=== PATIENT | female | born 1930 | race Caucasian/White ===

== ENCOUNTER 2016-08-29 16:30 | Inpatient (IN) | payer OTHER ==
--- NOTE | 2016-08-29 17:03 | PDOC ---
History of Present Illness <Ranjan Helms - Last Filed: 08/29/16 17:17> - General History Source: Patient Exam Limitations: No Limitations - History of Present Illness Initial Comments: 08/29/16 17:25 Patient is a 84-year-old female with history of COPD, CAD (pacemaker in place), esophageal dysmotility disorder with tertiary contractions, retention and reversed peristalsis who presents to the ED sent in by Dr. Castillo for admission to place peg tube by Dr. Chong. Patient reports intermittent nausea and vomiting that is an ongoing problem for her. Patient states that she has difficulty swallowing or keeping food down due to her esophageal disorder. PMH: intrinsic bronchial asthma, COPD, ischemic heart disease, HCVD c/CHF, rheumatoid arthritis, severe degenerative joint disease of multiple sites, ischemic colitis, hyperlipidemia, glaucoma, osteoporosis, esophageal dysmotility disorder with tertiary contractions, retention and reversed peristalsis, intermittent nausea and vomiting, history of ischemic colitis, s/p Antonio fundoplasty, s/p H Pylori infection and gastritis, s/p cholecystectomy, appendectomy, intermittent mid and right lumbar abdominal pain, s/p ventral hernia repair, Cholelithiasis, Hypothyroidism, Osteopenia, Cholecystitis, AFIB, CAD, CHF, HTN, Hyperlipidemia, [place], Mitral Insufficiency,Atrial septal defect. PSH: Appendectomy, Cataract Removal, Cholecystectomy, Hernia Repair, Joint Replacement, Stent, Tonsillectomy <Jasmin Murphy - Last Filed: 08/29/16 18:08> - General Chief Complaint: Dysphagia Stated Complaint: DYSPHAGIA, VOMITING Time Seen by Provider: 08/29/16 17:02 Past History - Past Medical History Anemia: Yes Asthma: Yes Cancer: Yes (BILATERAL BREAST) Cardiac Disorders: Yes (ashd, cabg,) CVA: No COPD: Yes CHF: Yes Dementia: No Diabetes: No GI Disorders: Yes (gi bleed) Disorders: No HTN: Yes Hypercholesterolemia: Yes Liver Disease: No Seizures: No Thyroid Disease: No - Surgical History Abdominal Surgery: No Appendectomy: No Cardiac Surgery: Yes (stents 2) Cholecystectomy: No Lung Surgery: No Neurologic Surgery: No Orthopedic Surgery: Yes (BILAT KNEE REPLACEMENT) - Immunization History Immunization Up to Date: Yes - Psycho/Social/Smoking Cessation Hx Anxiety: No Suicidal Ideation: No Smoking Status: No Smoking History: Never smoked Years of Tobacco Use: 0 Have you smoked in the past 12 months: No Number of Cigarettes Smoked Daily: 0 Hx Alcohol Use: No Drug/Substance Use Hx: No Substance Use Type: None Hx Substance Use Treatment: No <Ranjan Helms - Last Filed: 08/29/16 17:17> <Jasmin Murphy - Last Filed: 08/29/16 18:08> - Past Medical History Allergies/Adverse Reactions: Allergies Allergy/AdvReac Type Severity Reaction Status Date / Time alcohol Allergy Severe Difficulty Verified 08/29/16 16:48 Breathing ciprofloxacin [From Cipro] Allergy Severe Difficulty Verified 08/29/16 16:48 Breathing ciprofloxacin HCl Allergy Severe Difficulty Verified 08/29/16 16:48 [From Cipro] Breathing erythromycin base Allergy Severe Difficulty Verified 08/29/16 16:48 [Erythromycin Base] Breathing metronidazole [From Flagyl] Allergy Severe Difficulty Verified 08/29/16 16:48 Breathing Metronidazole HCl Allergy Severe Difficulty Verified 08/29/16 16:48 [From Flagyl] Breathing Penicillins Allergy Severe Difficulty Verified 08/29/16 16:48 Breathing tetracycline [Tetracycline] Allergy Severe Difficulty Verified 08/29/16 16:48 Breathing adhesive Allergy Verified 08/29/16 16:48 adhesive tape Allergy Verified 08/29/16 16:48 clindamycin Allergy Verified 08/29/16 16:48 codeine [Codeine] Allergy Verified 08/29/16 16:48 isosorbide mononitrate Allergy Verified 08/29/16 16:48 [From Ismo] meperidine HCl [From Demerol] Allergy Verified 08/29/16 16:48 nisoldipine Allergy Verified 08/29/16 16:48 povidone-iodine Allergy Verified 08/29/16 16:48 [From Betadine] prochlorperazine edisylate Allergy Verified 08/29/16 16:48 [From Compazine] prochlorperazine maleate Allergy Verified 08/29/16 16:48 [From Compazine] soap [From Betadine] Allergy Verified 08/29/16 16:48 EITHER Allergy Unknown Uncoded 08/29/16 16:48 Home Medications: Ambulatory Orders Albuterol Sulfate Inhaler - [Ventolin Hfa Inhaler -] 2 puff IH ASDIR 08/29/16 Apixaban [Eliquis] 2.5 mg PO BID 08/29/16 Ascorbate Calcium [Vitamin C] 500 mg PO DAILY 08/29/16 Aspirin [ASA -] 81 mg PO DAILY 08/29/16 Cholecalciferol (Vitamin D3) [Vitamin D3] 5,000 unit PO DAILY 08/29/16 Docusate Sodium [Colace -] 200 mg PO BID 08/29/16 Fluticasone Prop 0.05% Nasal [Flonase -] 1 spray NS DAILY 08/29/16 Fluticasone Propionate [Flovent Diskus] 100 mcg IH DAILY 08/29/16 Folic Acid 1 mg PO DAILY 08/29/16 Furosemide [Lasix] 20 mg PO Q48H 08/29/16 Guaifenesin [Mucinex] 600 mg PO BID 08/29/16 Ipratropium [place] 15 ml NS BID 08/29/16 Metoprolol Succinate [Toprol Xl -] 25 mg PO DAILY 08/29/16 Montelukast Na [Singulair -] 10 mg PO HS 08/29/16 Nitroglycerin Sublingual [Nitrostat -] 0.4 mg SL ASDIR 08/29/16 Ondansetron HCl [Zofran] 4 mg PO DAILY 08/29/16 Oxycodone HCl/Acetaminophen [Percocet 5-325 mg Tablet] 1 tab PO Q4H PRN Pantoprazole Sodium [Protonix] 40 mg PO DAILY 08/29/16 Propylene Glycol/Peg 400/Pf [Systane Ultra 0.4-0.3% Eye Drp] 1 each OP QID 08/29 Ranolazine [Ranexa] 500 mg PO BID 08/29/16 Rosuvastatin Calcium [Crestor] 40 mg PO DAILY 08/29/16 Review of Systems - Review of Systems Able to Perform ROS?: Yes Comments:: 08/29/16 17:29 GENERAL/CONSTITUTIONAL: No fever or chills. No weakness. HEAD, EYES, EARS, NOSE AND THROAT: No change in vision. No ear pain or discharge. No sore throat. CARDIOVASCULAR: No chest pain or shortness of breath. RESPIRATORY: No cough, wheezing, or hemoptysis. GASTROINTESTINAL: (+)nausea, vomiting. No diarrhea or constipation. GENITOURINARY: No dysuria, frequency, or change in urination. MUSCULOSKELETAL: No joint or muscle swelling or pain. No neck or back pain. SKIN: No rash NEUROLOGIC: No headache, vertigo, loss of consciousness, or change in strength/ sensation. ENDOCRINE: No increased thirst. No abnormal weight change. HEMATOLOGIC/LYMPHATIC: No anemia, easy bleeding, or history of blood clots. ALLERGIC/IMMUNOLOGIC: No hives or skin allergy. <Jasmin Murphy - Last Filed: 08/29/16 18:08> *Physical Exam - Vital Signs Last Vital Signs Temp Pulse Resp BP Pulse Ox 100.1 F H 84 18 145/58 98 08/29/16 16:30 08/29/16 16:30 08/29/16 16:30 08/29/16 16:30 08/29/16 16:30 <Ranjan Helms - Last Filed: 08/29/16 17:17> - Vital Signs Last Vital Signs Temp Pulse Resp BP Pulse Ox 100.1 F H 84 18 145/58 98 08/29/16 16:30 08/29/16 16:30 08/29/16 16:30 08/29/16 16:30 08/29/16 16:30 - Physical Exam Comments: 08/29/16 17:26 GENERAL: Awake, alert, and fully oriented, in no acute distress HEAD: No signs of trauma EYES: PERRLA, EOMI, sclera anicteric, conjunctiva clear ENT: (+)Dry mucous membranes. Auricles normal inspection, hearing grossly normal , nares patent, oropharynx clear without exudates. NECK: Normal ROM, supple, no lymphadenopathy, JVD, or masses LUNGS: Breath sounds equal, clear to auscultation bilaterally. No wheezes, and no crackles HEART: Regular rate and rhythm, normal S1 and S2, no murmurs, rubs or gallops ABDOMEN: Soft, nontender, normoactive bowel sounds. No guarding, no rebound. No masses EXTREMITIES: (+)well healed surgical scars at the knees bilaterally. Normal range of motion, no edema. No clubbing or cyanosis. No cords, erythema, or tenderness NEUROLOGICAL: Cranial nerves II through XII grossly intact. Normal speech. SKIN: (+)Juandice. Warm, Dry, normal turgor, no rashes or lesions noted. <Jasmin Murphy - Last Filed: 08/29/16 18:08> Heart Score/ECG Review #1 08/29/16 18:08 Ventricular paced rhythm at 85 bpm <Jasmin Murphy - Last Filed: 08/29/16 18:08> ED Treatment Course - LABORATORY CBC & Chemistry Diagram: 08/29/16 17:45 08/29/16 17:45 <Jasmin Murphy - Last Filed: 08/29/16 18:08> Medical Decision Making - Medical Decision Making 08/29/16 17:25 Patient is a 84-year-old female with history of esophageal dysmotility disorder with tertiary contractions, retention and reversed peristalsis s/p multiple surgeries to fix it who presents to the ED sent in by Dr. Castillo for admission to place peg tube by Dr. Chong. Patient reports intermittent nausea and vomiting that is an ongoing problem for her. Patient was seen and evaluated by Dr. Castillo and myself. 08/29/16 17:30 Patient will worked up, labs ordered, when results are obtained patient will be transferred to [facility]. Discussed with Dr. Chester. <Jasmin Murphy - Last Filed: 08/29/16 18:08> *DC/Admit/Observation/Transfer - Discharge Dispostion Admit: Yes - Transfer to Acute Care Facility Accepting Physician:: LESLY - Attestations Physician Attestion: 08/29/16 17:02 I, Dr. Ranjan Helms, attest that this document has been prepared under my direction and personally reviewed by me in its entirety. I further attest, that it accurately reflects all work, treatment, procedures and medical decision -making performed by me. <Ranjan Helms - Last Filed: 08/29/16 17:17> <Jasmin Murphy - Last Filed: 08/29/16 18:08> Diagnosis at time of Disposition: Intractable vomiting with nausea Qualifiers: Vomiting type: unspecified Qualified Code(s): R11.2 - Nausea with vomiting, unspecified Diarrhea Qualifiers: Diarrhea type: due to malabsorption Qualified Code(s): K90.9 - Intestinal malabsorption, unspecified - Discharge Dispostion Disposition: TRANSFER ACUTE CARE/OTHER HOSP Condition at time of disposition: Stable - Referrals Referrals: Calos Castillo MD [Primary Care Provider] -
--- NOTE | 2016-08-29 17:13 | HP ---
Admitting History and Physical - Admission Chief Complaint: Acute exacerbation of generalized muscle weakness, acute fatigue, abnormal loss of weight, acute exacerbation of frequent bouts of regurgitation, feeling very depressed. 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, status post bilateral knee replacement twice, s/p left femur replacement, s/p left tibia repair, cholecystectomy, appendectomy tonsillectomy, atrial septal defect, hyperlipidemia, hypothyroidism, degenerative joint disease of joints of multiple sites, multilevel cervical osteoarthritis with degenerative disc disease with bilateral c7/c6 radiculopathy, proximal muscle weakness, bilateral c7/c6 radiculopathy with partial denervation in muscles innervated by these roots, status post rotator cuff tear and repair with pain - on going, status post abdominal hernia repair, GERD, glaucoma, 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 Patient is in need of PEG tube insertion for feeding, adequate hydration and nutrition. 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: Other (depression) Cardiovascular: Yes: AFIB, CAD, CHF, HTN, Hyperlipdemia, [place], Mitral Insufficiency, Other (Atrial septal defect, intermittent palpitations, status post acute inferior wall myocardial infarction) Pulmonary: Yes: Asthma, COPD, Other (intrinsic bronchial asthma) Gastrointestinal: Yes: GERD, Other (esophageal dysmotility disorder with tertiary contractions, retention and reversed peristalsis, intermittent nausea and vomiting, history of ischemic colitis, s/p Chase fundoplasty, s/p H Pylori infection and gastritis, s/p cholecystectomy, appendectomy, intermittent mid and right lumbar abdominal pain, s/p ventral hernia repair,) Hepatobiliary: Yes: Cholelithiasis, Cholecystitis Heme/Onc: Yes: Anemia, B12 Deficiency Infectious Disease: Yes: MRSA (left knee, acute) Psych: Yes: Depression Musculoskeletal: Yes: Chronic low back pain, Osteoarthritis, Other (s/ TKR x2, 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, left shoulder pain related to osteoarthritis) Rheumatology: Yes: Rheumatoid Arthritis ENT: Yes: Allergic Rhinitis Endocrine: Yes: Hypothyroidism, Osteopenia - Past Surgical History Past Surgical History: Yes: Appendectomy, Cataract Removal, Cholecystectomy, Hernia Repair, Joint Replacement, Permanent Pacemaker, Stent, Tonsillectomy - Smoking History Smoking history: Never smoked Have you smoked in the past 12 months: No Aproximately how many cigarettes per day: 0 - Alcohol/Substance Use Hx Alcohol Use: No History of Substance Use: reports: None - Social History Usual Living Arrangement: Yes: Other ([employer]) ADL: Support Services History of Recent Travel: No Home Medications - Allergies Allergies/Adverse Reactions: Allergies Allergy/AdvReac Type Severity Reaction Status Date / Time alcohol Allergy Severe Difficulty Verified 08/29/16 16:48 Breathing ciprofloxacin [From Cipro] Allergy Severe Difficulty Verified 08/29/16 16:48 Breathing ciprofloxacin HCl Allergy Severe Difficulty Verified 08/29/16 16:48 [From Cipro] Breathing erythromycin base Allergy Severe Difficulty Verified 08/29/16 16:48 [Erythromycin Base] Breathing metronidazole [From Flagyl] Allergy Severe Difficulty Verified 08/29/16 16:48 Breathing Metronidazole HCl Allergy Severe Difficulty Verified 08/29/16 16:48 [From Flagyl] Breathing Penicillins Allergy Severe Difficulty Verified 08/29/16 16:48 Breathing tetracycline [Tetracycline] Allergy Severe Difficulty Verified 08/29/16 16:48 Breathing adhesive Allergy Verified 08/29/16 16:48 adhesive tape Allergy Verified 08/29/16 16:48 clindamycin Allergy Verified 08/29/16 16:48 codeine [Codeine] Allergy Verified 08/29/16 16:48 isosorbide mononitrate Allergy Verified 08/29/16 16:48 [From Ismo] meperidine HCl [From Demerol] Allergy Verified 08/29/16 16:48 nisoldipine Allergy Verified 08/29/16 16:48 povidone-iodine Allergy Verified 08/29/16 16:48 [From Betadine] prochlorperazine edisylate Allergy Verified 08/29/16 16:48 [From Compazine] prochlorperazine maleate Allergy Verified 08/29/16 16:48 [From Compazine] soap [From Betadine] Allergy Verified 08/29/16 16:48 EITHER Allergy Unknown Uncoded 08/29/16 16:48 - Home Medications Home Medications: Ambulatory Orders Albuterol Sulfate Inhaler - [Ventolin Hfa Inhaler -] 2 puff IH ASDIR 08/29/16 Apixaban [Eliquis] 2.5 mg PO BID 08/29/16 Ascorbate Calcium [Vitamin C] 500 mg PO DAILY 08/29/16 Aspirin [ASA -] 81 mg PO DAILY 08/29/16 Cholecalciferol (Vitamin D3) [Vitamin D3] 5,000 unit PO DAILY 08/29/16 Docusate Sodium [Colace -] 200 mg PO BID 08/29/16 Fluticasone Prop 0.05% Nasal [Flonase -] 1 spray NS DAILY 08/29/16 Fluticasone Propionate [Flovent Diskus] 100 mcg IH DAILY 08/29/16 Folic Acid 1 mg PO DAILY 08/29/16 Furosemide [Lasix] 20 mg PO Q48H 08/29/16 Guaifenesin [Mucinex] 600 mg PO BID 08/29/16 Ipratropium [place] 15 ml NS BID 08/29/16 Metoprolol Succinate [Toprol Xl -] 25 mg PO DAILY 08/29/16 Montelukast Na [Singulair -] 10 mg PO HS 08/29/16 Nitroglycerin Sublingual [Nitrostat -] 0.4 mg SL ASDIR 08/29/16 Ondansetron HCl [Zofran] 4 mg PO DAILY 08/29/16 Oxycodone HCl/Acetaminophen [Percocet 5-325 mg Tablet] 1 tab PO Q4H PRN Pantoprazole Sodium [Protonix] 40 mg PO DAILY 08/29/16 Propylene Glycol/Peg 400/Pf [Systane Ultra 0.4-0.3% Eye Drp] 1 each OP QID 08/29 Ranolazine [Ranexa] 500 mg PO BID 08/29/16 Rosuvastatin Calcium [Crestor] 40 mg PO DAILY 08/29/16 Family Disease History - Family Disease History Family Disease History: Heart Disease: Mother (breast, ovarian), Brother, [place]: Father (lung,), Mother Review of Systems - Review of Systems Constitutional: reports: Unintentional Wgt. Loss, Weakness, Other ( severe generalized muscle weakness) Eyes: reports: Other (dry eye syndrome) HENT: reports: Nasal Congestion Neck: reports: No Symptoms Cardiovascular: reports: No Symptoms Respiratory: reports: No Symptoms Gastrointestinal: reports: Diarrhea, Nausea, Vomiting Genitourinary: reports: No Symptoms Breasts: reports: No Symptoms Reported Musculoskeletal: reports: Back Pain, Extremity Pain, Muscle Pain, Muscle Weakness Integumentary: reports: No Symptoms Neurological: reports: Unsteady Gait, Weakness Endocrine: reports: Other (hypothyroidism) Psychiatric: reports: Depression Physical Examination Vital Signs: Vital Signs Temperature 100.1 F H 08/29/16 16:30 Pulse Rate 84 08/29/16 16:30 Respiratory Rate 18 08/29/16 16:30 Blood Pressure 145/58 08/29/16 16:30 O2 Sat by Pulse Oximetry (%) 98 08/29/16 16:30 Constitutional: Yes: Severe Distress, Pallor, Other (depressed) Eyes: Yes: Conjunctiva Clear, Other (dry eye syndrome) HENT: Yes: Atraumatic, Normocephalic Neck: Yes: Supple, Trachea Midline Cardiovascular: Yes: Regular Rate and Rhythm, Other (s/p permanent pacemaker insertion) Respiratory: Yes: Regular, CTA Bilaterally Gastrointestinal: Yes: Normal Bowel Sounds, Soft, Vomiting, Other (frequent regurgitation) ...Rectal Exam: Yes: Deferred Renal/: Yes: WNL Breast(s): Yes: Other (left breast cancer) Musculoskeletal: Yes: Muscle Weakness Extremities: Yes: Other (generalized muscle weakness) Edema: Yes Edema: LLE: 1+, RLE: 1+ Peripheral Pulses WNL: Yes Integumentary: Yes: WNL Neurological: Yes: Alert, Oriented, Unsteady Gait, Weakness ...Motor Strength: LUE (muscle weakness), LLE (muscle weakness), RUE (muscle weakness), RLE (muscle weakness) Psychiatric: Yes: Alert, Oriented Problem List - Problems (1) Diarrhea Assessment/Plan: Secondary to Boost plus, IV fluids. Code(s): R19.7 - DIARRHEA, UNSPECIFIED Qualifiers: Diarrhea type: due to malabsorption Qualified Code(s): K90.9 - Intestinal malabsorption, unspecified; R19.7 - Diarrhea, unspecified (2) Intractable vomiting with nausea Assessment/Plan: Secondary to esophageal dysmotility with tertiary contractions and retrograde flow. Consultation to GI. Code(s): R11.2 - NAUSEA WITH VOMITING, UNSPECIFIED Qualifiers: Vomiting type: unspecified Qualified Code(s): R11.2 - Nausea with vomiting, unspecified (3) Hypovolemia dehydration Assessment/Plan: IV fluids. Code(s): E86.1 - HYPOVOLEMIA (4) Hypokalemia Assessment/Plan: IV KCL Code(s): E87.6 - HYPOKALEMIA Assessment/Plan Reason for admission and continued hospital stay: acute dehydration, acute hypokalemia, acute diarrhea, acute nausea and vomiting, IV fluids, Consultation to GI for PEG tube insertion, discussed clinical condition of the patient with GI from Dr. Coleman's group, patient to be transferred to [facility].
[2016-08-29] MEDS ORDERED: SODIUM CHLORIDE 1,000 ML IV STA (17:22)
[2016-08-29] MEDS ORDERED: ACETAMINOPHEN 1000 MG/100 ML VIAL (NON FORMULARY) IVPB ONE (17:57)
[2016-08-29] MEDS ORDERED: ACETAMINOPHEN INJECTION 100 ML IVPB ONE (18:09)
[2016-08-29 18:15] LABS: BASOPHIL 0.7 % (0-2.0); EOSINOPHIL 0.3 % (0-4.5); MCH 33.9 pg (25.7-33.7); MCHC 34.3 g/dl (32.0-36.0); MEAN CELL VOLUME 98.8 fl (80-96); MEAN PLT VOLUME 8.2 fl (7.5-11.1); NEUTROPHILS 71.3 % (42.8-82.8); PLATELET COUNT 172 K/MM3 (134-434); RDW 14.5 % (11.6-15.6); WHITE BLOOD COUNT 8.2 K/mm3 (4.0-10.8)
[2016-08-29] MEDS ORDERED: OXYCODONE/APAP 5/325MG COMBO TABLET PO ONE (18:21)
[2016-08-29] MEDS ORDERED: OXYCODONE/APAP 5/325MG COMBO TABLET PO PRN (18:21)
[2016-08-29 18:22] LABS: INR 1.09 (0.82-1.09); PROTHROMBIN TIME (PATIENT) 12.2 SEC (10.2-13.0)
[2016-08-29] MEDS ORDERED: ALBUTEROL SO4 6.7 GM HFA INHALER IH PRN (18:23)
[2016-08-29 18:24] LABS: ALBUMIN 2.7 g/dl (3.5-5.0); ALK PHOS 109 U/L (32-92); ANION GAP 13 (8-16); BILIRUBIN,TOTAL 1.5 mg/dl (0.2-1.0); CALCIUM 9.1 mg/dl (8.4-10.2); CO2 24 mmol/L (22-28); CREATININE 1.7 mg/dl (0.6-1.3); GLUCOSE,RANDOM 108 mg/dl (74-106); SGOT/AST 59 U/L (10-42); SGPT/ALT 43 U/L (10-40); TOT PROT 5.3 g/dl (6.4-8.3)
[2016-08-29] MEDS ORDERED: ALBUTEROL SO4 0.083% IH SOL 2.5 MG/3 ML VIAL.NEB. NEB PRN (18:24)
[2016-08-29] MEDS ORDERED: POTASSIUM CHLORIDE TABS 20 MEQ TABLET.ER (FP) PO ONE ×2 (18:31→18:40)
[2016-08-29] MEDS ORDERED: ONDANSETRON 4 MG/2 ML VIAL IVPB ONE (18:31)
[2016-08-29] MEDS ORDERED: POTASSIUM CHLORIDE 20 MEQ PREMIX IVPB 100 ML IVPB ONE (18:31)
[2016-08-29] MEDS ORDERED: NITROGLYCERIN SUBLINGUAL 1/150 0.4 MG TAB SL PRN (18:38)
[2016-08-29] MEDS ORDERED: ONDANSETRON 4 MG/2 ML VIAL ONE (18:40)
[2016-08-29] MEDS ORDERED: ONDANSETRON 4 MG TABLET PO ONE (18:43)
[2016-08-29 18:48] LABS: PH,URINE 5.5 (4.5-8); URINE APPEARANCE Cloudy; URINE BILIRUBIN Negative (NEGATIVE); URINE GLUCOSE (UA) Negative (NEGATIVE); URINE KETONE Negative (NEGATIVE); URINE NITRITE Negative (NEGATIVE); URINE UROBILINOGEN 0.2 E.U/dl (0.2-1.0)
[2016-08-29 18:49] LABS: URINE BLOOD 3+ (NEGATIVE); URINE COLOR YELLOW; URINE LEUK ESTERASE 3+ (NEGATIVE); URINE PROTEIN 1+ (NEGATIVE)
[2016-08-29 18:51] LABS: TROPONIN I (DFP) 0.09 ng/ml (0.03-0.50)
[2016-08-29] MEDS: DEXTROSE 5%-0.45% SALINE 1,000 ML IV SCH (19:15)
[2016-08-29 19:44] LABS: URINE BACTERIA MANY /hpf (NEGATIVE); URINE WBC MANY (3-5)
[2016-08-29 21:39] VITALS: BMI 21.9
[2016-08-29] MEDS ORDERED: ROSUVASTATIN CA 40 MG TABLET PO SCH (22:00)
[2016-08-29] MEDS ORDERED: guaiFENesin 600 MG TABLET.ER (FP) PO SCH (22:00)
[2016-08-29] MEDS ORDERED: ASCORBIC ACID 500 MG TABLET (FP) PO SCH (22:00)
[2016-08-29] MEDS ORDERED: APIXABAN 2.5 MG TABLET PO SCH (22:00)
[2016-08-29] MEDS ORDERED: RANOLAZINE E.R. 500 MG TABLET (FP) PO SCH (22:00)
[2016-08-30] MEDS: DEXTROSE 5%-0.45% SALINE 1,000 ML IV SCH (01:51)
[2016-08-30] MEDS ORDERED: ALBUTEROL SO4 6.7 GM HFA INHALER IH PRN (08:15)
[2016-08-30] MEDS ORDERED: ALBUTEROL SO4 0.083% IH SOL 2.5 MG/3 ML VIAL.NEB. NEB PRN (08:15)
[2016-08-30] MEDS ORDERED: NITROGLYCERIN SUBLINGUAL 1/150 0.4 MG TAB SL PRN (08:34)
[2016-08-30] MEDS ORDERED: oxyCODONE HCL 5 MG TABLET PO PRN (08:43)
[2016-08-30] MEDS ORDERED: ACETAMINOPHEN 325 MG TABLET (FP) PO PRN (08:43)
[2016-08-30] MEDS ORDERED: METOPROLOL SUCCINATE 25 MG TAB.SR.24H (FP) PO SCH (10:00)
[2016-08-30] MEDS ORDERED: CHOLECALCIFEROL (VITAMIN D3) 1,000 UNIT TABLET (FP) PO SCH (10:00)
[2016-08-30] MEDS ORDERED: MONTELUKAST NA 10 MG TABLET PO SCH (10:00)
[2016-08-30] MEDS ORDERED: FOLIC ACID 1 MG TABLET (FP) PO SCH (10:00)
[2016-08-30] MEDS ORDERED: DOXYCYCLINE HYCLATE 100 MG CAPSULE PO SCH (10:00)
[2016-08-30] MEDS ORDERED: PANTOPRAZOLE 40 MG TABLET (FP) PO SCH (10:00)
[2016-08-30] MEDS ORDERED: ASPIRIN COATED 81 MG TABLET.EC PO SCH (10:00)
[2016-08-30] MEDS: ASPIRIN COATED 81 MG TABLET.EC PO SCH (11:00)
[2016-08-30] MEDS: APIXABAN 2.5 MG TABLET PO SCH ×2 (11:00→21:46)
[2016-08-30] MEDS: DOXYCYCLINE HYCLATE 100 MG CAPSULE PO SCH (11:01)
[2016-08-30] MEDS: RANOLAZINE E.R. 500 MG TABLET (FP) PO SCH ×2 (11:01→21:54)
[2016-08-30] MEDS: FOLIC ACID 1 MG TABLET (FP) PO SCH (11:01)
[2016-08-30] MEDS: MONTELUKAST NA 10 MG TABLET PO SCH (11:01)
[2016-08-30] MEDS: METOPROLOL SUCCINATE 25 MG TAB.SR.24H (FP) PO SCH (11:01)
[2016-08-30] MEDS: PANTOPRAZOLE 40 MG TABLET (FP) PO SCH (11:01)
[2016-08-30] MEDS: guaiFENesin 600 MG TABLET.ER (FP) PO SCH ×2 (11:01→22:00)
[2016-08-30] MEDS: ASCORBIC ACID 500 MG TABLET (FP) PO SCH ×2 (11:02→21:54)
[2016-08-30] MEDS: CHOLECALCIFEROL (VITAMIN D3) 1,000 UNIT TABLET (FP) PO SCH (11:02)
[2016-08-30] MEDS ORDERED: PT OWN MED DRAWER 7, Y5N ONE (11:04)
--- NOTE | 2016-08-30 11:32 | PN ---
Progress Note, Physician Chief Complaint: Severe generalized muscle weakness, fearful to swallow any type of food item due to frequent regurgitation secondary to esophageal dysmotility disorder. History of Present Illness: This 86 yr old w/f with hx of CABGX2, breast cancer 2Lcis, Antonio fundoplication , s/p bilateral knee replacement twice, MRSA infection of the left knee, hypertensive cardiovascular disease with CHF, obstructive chronic bronchitis without acute exacerbation, severe osteoarthritis of joints of multiple sites admitted via ER with acute severe generalized weakness, easy fatigability, fearful of swallowing any food item because of subsequent frequent regurgitation secondary to esophageal dysmotility disorder, acute dehydration secondary to poor intake of oral fluids and diarrhea. - Current Medication List Current Medications: Active Medications Acetaminophen (Tylenol -) 325 mg PO Q4H PRN PRN Reason: PAIN 6-10 Stop: 09/02/16 08:42 Albuterol Sulfate (Ventolin 0.083% Nebulizer Soln -) 1 amp NEB Q8H PRN PRN Reason: SHORT OF BREATH/WHEEZING Albuterol Sulfate (Ventolin Hfa Inhaler -) 2 puff IH Q6H PRN PRN Reason: SHORT OF BREATH/WHEEZING Apixaban (Eliquis -) 2.5 mg PO BID [facility] Last Admin: 08/30/16 11:00 Dose: Not Given Artificial Tears (Lacri-Lube Eye Ointment -) 1 applic OU HS [facility] Ascorbic Acid (Vitamin C -) 500 mg PO BID [facility] Last Admin: 08/30/16 11:02 Dose: Not Given Aspirin (Ecotrin -) 81 mg PO DAILY [facility] Last Admin: 08/30/16 11:00 Dose: Not Given Cholecalciferol (Vitamin D3 -) 5,000 unit PO DAILY [facility] Last Admin: 08/30/16 11:02 Dose: Not Given Doxycycline Hyclate (Vibramycin -) 100 mg PO DAILY [facility] Last Admin: 08/30/16 11:01 Dose: Not Given Fluticasone Propionate (Flonase -) 1 spray NS DAILY [facility] Folic Acid (Folic Acid -) 1 mg PO DAILY [facility] Last Admin: 08/30/16 11:01 Dose: Not Given Guaifenesin (Mucinex -) 600 mg PO BID [facility] Last Admin: 08/30/16 11:01 Dose: Not Given Dextrose/Sodium Chloride (D5-1/2ns -) 1,000 mls @ 75 mls/hr IV ASDIR [facility] Last Admin: 08/30/16 01:51 Dose: 75 mls/hr Metoprolol Succinate (Toprol Xl -) 25 mg PO DAILY [facility] Last Admin: 08/30/16 11:01 Dose: Not Given Montelukast Sodium (Singulair -) 10 mg PO DAILY [facility] Last Admin: 08/30/16 11:01 Dose: Not Given Nitroglycerin (Nitrostat -) 0.4 mg SL Q1H PRN PRN Reason: FOR CHEST PAIN Oxycodone HCl (Roxicodone -) 5 mg PO Q4H PRN PRN Reason: PAIN 6-10 Pantoprazole Sodium (Protonix -) 40 mg PO DAILY [facility] Last Admin: 08/30/16 11:01 Dose: Not Given Ranolazine (Ranexa -) 500 mg PO BID [facility] Last Admin: 08/30/16 11:01 Dose: Not Given - Objective Vital Signs: Vital Signs Temperature 97.9 F 08/30/16 07:29 Pulse Rate 82 08/30/16 07:29 Respiratory Rate 20 08/30/16 07:29 Blood Pressure 117/52 08/30/16 07:29 O2 Sat by Pulse Oximetry (%) 98 08/29/16 21:00 Constitutional: Yes: Other (depressed) Eyes: Yes: Conjunctiva Clear, Other (s/p bilatereal cataract surgery) HENT: Yes: Atraumatic, Normocephalic Neck: Yes: Supple, Trachea Midline Cardiovascular: Yes: Regular Rate and Rhythm, Other (s/p AV josh ablation and permanent pacemaker insertion) Respiratory: Yes: Regular, CTA Bilaterally Gastrointestinal: Yes: Normal Bowel Sounds, Soft ...Rectal Exam: Yes: Deferred Genitourinary: Yes: Other (no suprapubic tenderness) Breast(s): Yes: Other (cancer of the breast) Musculoskeletal: Yes: Muscle Weakness Extremities: Yes: Other (s/p bilateral knee replacement twice, MRSA infection of the left knee) Edema: Yes Edema: LLE: 1+, RLE: 1+ Peripheral Pulses WNL: Yes Integumentary: Yes: Pressure Ulcer Neurological: Yes: Alert, Oriented, Unsteady Gait, Weakness ...Motor Strength: LUE (muscle weakness), LLE (muscle weakness), RUE (muscle) Psychiatric: Yes: Alert, Oriented Labs: INR, PTT INR 1.09 (0.82-1.09) 08/29/16 17:45 - ....Imaging Other: Report Reviewed (Lab data reviewed) Problem List - Problems (1) Intractable vomiting with nausea Assessment/Plan: IV fluids, oral ondansetron, consultation to GI pending. Code(s): R11.2 - NAUSEA WITH VOMITING, UNSPECIFIED Qualifiers: Qualified Code(s): R11.2 - Nausea with vomiting, unspecified (2) Hypovolemia dehydration Assessment/Plan: IV fluids. Code(s): E86.1 - HYPOVOLEMIA (3) Hypokalemia Assessment/Plan: IV KCL Code(s): E87.6 - HYPOKALEMIA Assessment/Plan Plan: acute hypokalemia, acute abnormal weight loss, acute dehydration, fearful to swallow liquids or solids because of frequent regurgitation secondary to severe esophageal dysmotility disorder, awaiting PEG tube placement and transfer to [facility], IV fluids, IV Clinimix, IV intralipids.
[2016-08-30] MEDS ORDERED: DEXTROSE 5%-0.45% SALINE 1,000 ML IV SCH (12:15)
[2016-08-30 12:42] LABS: CALCIUM 8.2 mg/dL (8.5-10.1); COCKROFT - GAULT 28.2285; CREATININE 1.4 mg/dL (0.55-1.02)
--- NOTE | 2016-08-30 13:22 | CON.GI ---
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 DR ALMEIDA IS ON VACATION AND DOES NOT HAVE A COVERING PHYSICIAN AND SHE WAS TRANSFERRED HERE. SHE HAS BEEN AT [facility] OVER THE LAST THREE MONTHS AND SHE SAYS HAS BEEN UNDER THE CARE OF DR LOERA SPECFICALLY FOR THIS PROBLEM. THERE IS NO INFORMATION ON THE PRIMARY DISEASE STATE AND THE CURRENT OR PAST WORKUP. 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: Other (depression) Cardio/Vascular: Yes: AFIB, CAD, CHF, HTN, Hyperlipdemia, [place], Mitral Insufficiency, Other (Atrial septal defect, intermittent palpitations, status post acute inferior wall myocardial infarction) Pulmonary: Yes: Asthma, COPD, Other (intrinsic bronchial asthma) Gastrointestinal: Yes: GERD, Other (esophageal dysmotility disorder with tertiary contractions, retention and reversed peristalsis, intermittent nausea and vomiting, history of ischemic colitis, s/p Chase fundoplasty, s/p H Pylori infection and gastritis, s/p cholecystectomy, appendectomy, intermittent mid and right lumbar abdominal pain, s/p ventral hernia repair,) Hepatobiliary: Yes: Cholelithiasis, Cholecystitis Infectious Disease: Yes: MRSA (left knee, acute) Psych: Yes: Depression Musculoskeletal: Yes: Chronic low back pain, Osteoarthritis, Other (s/ TKR x2, 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, left shoulder pain related to osteoarthritis) Rheumatology: Yes: Rheumatoid Arthritis ENT: Yes: Allergic Rhinitis Endocrine: Yes: Hypothyroidism, Osteopenia - Past Surgical History Past Surgical History: Yes: Appendectomy, Cataract Removal, Cholecystectomy, Hernia Repair, Joint Replacement, Permanent Pacemaker, Stent, Tonsillectomy Additional Surgical History: CHASE FUNDOPLICATION - Alcohol/Substance Use Hx Alcohol Use: No History of Substance Use: reports: None - Smoking History Smoking history: Never smoked Have you smoked in the past 12 months: No Aproximately how many cigarettes per day: 0 - Social History ADL: Support Services History of Recent Travel: No Home Medications - Allergies Allergies/Adverse Reactions: Allergies Allergy/AdvReac Type Severity Reaction Status Date / Time alcohol Allergy Severe Difficulty Verified 08/29/16 16:48 Breathing ciprofloxacin [From Cipro] Allergy Severe Difficulty Verified 08/29/16 16:48 Breathing ciprofloxacin HCl Allergy Severe Difficulty Verified 08/29/16 16:48 [From Cipro] Breathing erythromycin base Allergy Severe Difficulty Verified 08/29/16 16:48 [Erythromycin Base] Breathing metronidazole [From Flagyl] Allergy Severe Difficulty Verified 08/29/16 16:48 Breathing Metronidazole HCl Allergy Severe Difficulty Verified 08/29/16 16:48 [From Flagyl] Breathing Penicillins Allergy Severe Difficulty Verified 08/29/16 16:48 Breathing tetracycline [Tetracycline] Allergy Severe Difficulty Verified 08/29/16 16:48 Breathing adhesive Allergy Verified 08/29/16 16:48 adhesive tape Allergy Verified 08/29/16 16:48 clindamycin Allergy Verified 08/29/16 16:48 codeine [Codeine] Allergy Verified 08/29/16 16:48 isosorbide mononitrate Allergy Verified 08/29/16 16:48 [From Ismo] meperidine HCl [From Demerol] Allergy Verified 08/29/16 16:48 nisoldipine Allergy Verified 08/29/16 16:48 povidone-iodine Allergy Verified 08/29/16 16:48 [From Betadine] prochlorperazine edisylate Allergy Verified 08/29/16 16:48 [From Compazine] prochlorperazine maleate Allergy Verified 08/29/16 16:48 [From Compazine] soap [From Betadine] Allergy Verified 08/29/16 16:48 EITHER Allergy Unknown Uncoded 08/29/16 16:48 - Home Medications Home Medications: Ambulatory Orders Albuterol Sulfate Inhaler - [Ventolin Hfa Inhaler -] 2 puff IH ASDIR 08/29/16 Apixaban [Eliquis] 2.5 mg PO BID 08/29/16 Ascorbate Calcium [Vitamin C] 500 mg PO DAILY 08/29/16 Aspirin [ASA -] 81 mg PO DAILY 08/29/16 Cholecalciferol (Vitamin D3) [Vitamin D3] 5,000 unit PO DAILY 08/29/16 Docusate Sodium [Colace -] 200 mg PO BID 08/29/16 Fluticasone Prop 0.05% Nasal [Flonase -] 1 spray NS DAILY 08/29/16 Fluticasone Propionate [Flovent Diskus] 100 mcg IH DAILY 08/29/16 Folic Acid 1 mg PO DAILY 08/29/16 Furosemide [Lasix] 20 mg PO Q48H 08/29/16 Guaifenesin [Mucinex] 600 mg PO BID 08/29/16 Ipratropium [place] 15 ml NS BID 08/29/16 Metoprolol Succinate [Toprol Xl -] 25 mg PO DAILY 08/29/16 Montelukast Na [Singulair -] 10 mg PO HS 08/29/16 Nitroglycerin Sublingual [Nitrostat -] 0.4 mg SL ASDIR 08/29/16 Ondansetron HCl [Zofran] 4 mg PO DAILY 08/29/16 Oxycodone HCl/Acetaminophen [Percocet 5-325 mg Tablet] 1 tab PO Q4H PRN Pantoprazole Sodium [Protonix] 40 mg PO DAILY 08/29/16 Propylene Glycol/Peg 400/Pf [Systane Ultra 0.4-0.3% Eye Drp] 1 each OP QID 08/29 Ranolazine [Ranexa] 500 mg PO BID 08/29/16 Rosuvastatin Calcium [Crestor] 40 mg PO DAILY 08/29/16 Family Disease History - Family Disease History Family Disease History: Heart Disease: Mother (breast, ovarian), Brother, [place]: Father (lung,), Mother Review of Systems - Review of Systems Constitutional: reports: Lethargy, Loss of Appetite, Weakness Eyes: reports: No Symptoms HENT: reports: No Symptoms Neck: reports: No Symptoms Cardiovascular: reports: No Symptoms Respiratory: reports: No Symptoms Gastrointestinal: reports: Dysphagia, Nausea, Vomiting Genitourinary: reports: No Symptoms Musculoskeletal: reports: No Symptoms Integumentary: reports: No Symptoms Neurological: reports: No Symptoms Endocrine: reports: No Symptoms Hematology/Lymphatic: reports: No Symptoms Psychiatric: reports: Anxiety, Depression Physical Exam-GI Vital Signs: Vital Signs Temperature 98.2 F 08/30/16 09:10 Pulse Rate 71 08/30/16 09:10 Respiratory Rate 18 08/30/16 09:10 Blood Pressure 131/52 08/30/16 09:10 O2 Sat by Pulse Oximetry (%) 98 08/29/16 21:00 Constitutional: Yes: No Distress, Anxious Eyes: Yes: Conjunctiva Clear HENT: Yes: Normocephalic Neck: Yes: Supple Cardiovascular: Yes: Pulse Irregular, Murmur Respiratory: Yes: WNL Gastrointestinal Inspection: Yes: WNL, Scars ...Auscultate: Yes: Normoactive Bowel Sounds ...Palpate: Yes: Soft Extremities: Yes: WNL Neurological: Yes: Alert, Oriented Labs: INR, PTT INR 1.09 (0.82-1.09) 08/29/16 17:45 Laboratory Tests 08/29/16 08/29/16 08/29/16 17:45 17:45 17:45 WBC 8.2 RBC 3.14 L Hgb 10.6 L Hct 31.0 L MCV 98.8 H MCHC 34.3 RDW 14.5 Plt Count 172 D MPV 8.2 D Neutrophils % 71.3 Lymphocytes % 19.5 D Monocytes % 8.2 D Eosinophils % 0.3 Basophils % 0.7 INR 1.09 Sodium 137 Potassium 2.3 L* D Chloride 100 Carbon Dioxide 24 Anion Gap 13 BUN 47 H D Creatinine 1.7 H D Creat Clearance w eGFR 28.56 Random Glucose 108 H D Calcium 9.1 Ferritin Total Bilirubin 1.5 H D AST 59 H D ALT 43 H D Alkaline Phosphatase 109 H D Creatine Kinase Total Protein 5.3 L Albumin 2.7 L Lipase 177 H Urine Color Urine Appearance Urine pH Ur Specific [place] Urine Protein Urine Glucose (UA) Urine Ketones Urine Blood Urine Nitrite Urine Bilirubin Urine Urobilinogen Ur Leukocyte Esterase Urine RBC Urine WBC Urine Bacteria 08/29/16 08/29/16 08/29/16 17:45 17:45 19:00 WBC RBC Hgb Hct MCV MCHC RDW Plt Count MPV Neutrophils % Lymphocytes % Monocytes % Eosinophils % Basophils % INR Sodium Potassium Chloride Carbon Dioxide Anion Gap BUN Creatinine Creat Clearance w eGFR Random Glucose Calcium Ferritin 746.246 H Total Bilirubin AST ALT Alkaline Phosphatase Creatine Kinase 145 H Total Protein Albumin Lipase Urine Color Yellow Urine Appearance Cloudy Urine pH 5.5 Ur Specific [place] <= 1.005 Urine Protein 1+ H Urine Glucose (UA) Negative Urine Ketones Negative Urine Blood 3+ H Urine Nitrite Negative Urine Bilirubin Negative Urine Urobilinogen 0.2 e.u/dl Ur Leukocyte Esterase 3+ H Urine RBC 2-4 Urine WBC Many Urine Bacteria Many Assessment/Plan IMPRESSION: 1) DYSPHAGIA 2) HISTORY OF ESOPHAGEAL DISORDER WILL SIGN THIS PATIENT OUT TO DR CADE ON THURSDAY. IF DR ALMEIDA RETURNS FROM VACATION PEG CAN BE PLACED BY HIM IF INDICATED. IN THE MEANTIME IT WOULD BE HELPFUL TO DR CADE'S GROUP TO HAVE INFORMATION FROM [facility] AND DR ALMEIAD ON THIS PATIENT. I WOULD RECOMMEND CONTINUE HYDRATION. I SUGGEST CHANGING THE FLUID TO CLINIMIX(AT 100CC/HR AND FOLLOW BMP) AND USING INTRALIPIDS (250 CC TO RUN AT NIGHT) FOR NUTRITION AND REPLETING ELECTROLYTES.
[2016-08-30] MEDS ORDERED: DEXTROSE 5%-0.45% SALINE 1,000 ML with POTASSIUM CHLORIDE 10 MEQ IVPB SCH (14:32)
[2016-08-30] MEDS: KCL 10 MEQ IVPB 100 ML IVPB SCH ×3 (14:57→17:29)
[2016-08-30] MEDS: FLUTICASONE PROP 0.05% 16 GM NASAL SPRAY NS SCH (14:57)
[2016-08-30] MEDS: AMINO ACIDS 4.25%/D5W 1,000 ML IV SCH (21:00)
[2016-08-30] MEDS: OCULAR LUBRICANT OPHTHALMIC OINTMENT 7 GM TUBE OU SCH (21:44)
[2016-08-30] MEDS: FAT EMULSIONS 250 ML IV SCH (21:46)
[2016-08-30] MEDS ORDERED: FAT EMULSIONS 20% 250 ML PREMIX INFUS.BAG IV SCH (22:00)
[2016-08-30] MEDS ORDERED: ROSUVASTATIN CA 40 MG TABLET PO SCH (22:00)
[2016-08-31 07:23] LABS: BASOPHIL 0.5 % (0-2.0); EOSINOPHIL 4.1 % (0-4.5); MCH 34.9 pg (25.7-33.7); MCHC 34.7 g/dl (32.0-36.0); MEAN CELL VOLUME 100.7 fl (80-96); MEAN PLT VOLUME 7.9 fl (7.5-11.1); NEUTROPHILS 65.4 % (42.8-82.8); PLATELET COUNT 137 K/MM3 (134-434); RDW 15.1 % (11.6-15.6); WHITE BLOOD COUNT 5.8 K/mm3 (4.0-10.0)
[2016-08-31 07:49] LABS: ALBUMIN 2.1 g/dl (3.4-5.0); BILIRUBIN,TOTAL 0.8 mg/dL (0.2-1.0); CALCIUM 7.8 mg/dL (8.5-10.1); CREATININE 1.2 mg/dL (0.55-1.02); TOT PROT 4.6 g/dl (6.4-8.2)
[2016-08-31 08:24] LABS: COCKROFT - GAULT 32.963
[2016-08-31] MEDS: ASPIRIN COATED 81 MG TABLET.EC PO SCH (09:29)
[2016-08-31] MEDS: KCL 10 MEQ IVPB 100 ML IVPB SCH ×5 (09:29→19:32)
[2016-08-31] MEDS: MONTELUKAST NA 10 MG TABLET PO SCH (09:31)
[2016-08-31] MEDS: DOXYCYCLINE HYCLATE 100 MG CAPSULE PO SCH (09:31)
[2016-08-31] MEDS: PANTOPRAZOLE 40 MG TABLET (FP) PO SCH (09:31)
[2016-08-31] MEDS: FOLIC ACID 1 MG TABLET (FP) PO SCH (09:31)
[2016-08-31] MEDS: guaiFENesin 600 MG TABLET.ER (FP) PO SCH ×2 (09:31→21:35)
[2016-08-31] MEDS: APIXABAN 2.5 MG TABLET PO SCH (09:31)
[2016-08-31] MEDS: METOPROLOL SUCCINATE 25 MG TAB.SR.24H (FP) PO SCH (09:31)
[2016-08-31] MEDS: RANOLAZINE E.R. 500 MG TABLET (FP) PO SCH ×2 (09:31→21:35)
[2016-08-31] MEDS: AMINO ACIDS 4.25%/D5W 1,000 ML IV SCH ×4 (09:32→23:43)
[2016-08-31] MEDS: D5-1/2NS+10 MEQ KCL - 1,000 ML IV SCH (09:32)
[2016-08-31] MEDS: ASCORBIC ACID 500 MG TABLET (FP) PO SCH ×2 (09:32→21:35)
[2016-08-31] MEDS: CHOLECALCIFEROL (VITAMIN D3) 1,000 UNIT TABLET (FP) PO SCH (09:32)
[2016-08-31] MEDS: FLUTICASONE PROP 0.05% 16 GM NASAL SPRAY NS SCH (09:33)
[2016-08-31] MEDS ORDERED: KCL 10 MEQ IVPB 100 ML IVPB ONE (11:00)
--- NOTE | 2016-08-31 13:40 | PN ---
Progress Note, Physician Chief Complaint: Difficulty in swallowing, frequent bouts of regurgitation, generalized muscle weakness. History of Present Illness: This 86 yr old w/f with hx of coronary artery disease, obstructive chronic bronchitis without acute exacerbation, intrinsic bronchial asthma, CABGX2, status post AV josh ablation and permanent pacemaker insertion admitted via ER with acute hypokalemia, acute diarrhea, acute frequent bouts of nausea and vomiting, acute generalized muscle weakness. - Current Medication List Current Medications: Active Medications Albuterol Sulfate (Ventolin 0.083% Nebulizer Soln -) 1 amp NEB Q8H PRN PRN Reason: SHORT OF BREATH/WHEEZING Albuterol Sulfate (Ventolin Hfa Inhaler -) 2 puff IH Q6H PRN PRN Reason: SHORT OF BREATH/WHEEZING Apixaban (Eliquis -) 2.5 mg PO BID [facility] Last Admin: 08/31/16 09:31 Dose: Not Given Artificial Tears (Lacri-Lube Eye Ointment -) 1 applic OU HS [facility] Last Admin: 08/30/16 21:44 Dose: 1 applic Ascorbic Acid (Vitamin C -) 500 mg PO BID [facility] Last Admin: 08/31/16 09:32 Dose: Not Given Aspirin (Ecotrin -) 81 mg PO DAILY [facility] Last Admin: 08/31/16 09:29 Dose: Not Given Cholecalciferol (Vitamin D3 -) 5,000 unit PO DAILY [facility] Last Admin: 08/31/16 09:32 Dose: Not Given Doxycycline Hyclate (Vibramycin -) 100 mg PO DAILY [facility] Last Admin: 08/31/16 09:31 Dose: Not Given Fluticasone Propionate (Flonase -) 1 spray NS DAILY [facility] Last Admin: 08/31/16 09:33 Dose: 1 spray Folic Acid (Folic Acid -) 1 mg PO DAILY [facility] Last Admin: 08/31/16 09:31 Dose: Not Given Guaifenesin (Mucinex -) 600 mg PO BID [facility] Last Admin: 08/31/16 09:31 Dose: Not Given Fat Emulsion Intravenous (Intralipid -) 250 mls @ 20.833 mls/hr IV DAILY@2200 [facility] Last Admin: 08/30/16 21:46 Dose: 20.833 mls/hr Amino Acids (Clinimix -) 1,000 mls @ 75 mls/hr IV Q12H [facility] Last Admin: 08/31/16 09:32 Dose: 75 mls/hr Potassium Chloride/Dextrose/Sod Cl (D5-1/2ns+10 Meq Kcl -) 1,000 mls @ 25 mls/ hr IV ASDIR [facility] Last Admin: 08/31/16 09:32 Dose: 25 mls/hr Metoprolol Succinate (Toprol Xl -) 25 mg PO DAILY [facility] Last Admin: 08/31/16 09:31 Dose: Not Given Montelukast Sodium (Singulair -) 10 mg PO DAILY [facility] Last Admin: 08/31/16 09:31 Dose: Not Given Nitroglycerin (Nitrostat -) 0.4 mg SL Q1H PRN PRN Reason: FOR CHEST PAIN Oxycodone HCl (Roxicodone -) 5 mg PO Q4H PRN PRN Reason: PAIN 6-10 Pantoprazole Sodium (Protonix -) 40 mg PO DAILY [facility] Last Admin: 08/31/16 09:31 Dose: Not Given Ranolazine (Ranexa -) 500 mg PO BID [facility] Last Admin: 08/31/16 09:31 Dose: Not Given - Objective Vital Signs: Vital Signs Temperature 98.4 F 08/31/16 08:50 Pulse Rate 78 08/31/16 08:50 Respiratory Rate 18 08/31/16 08:50 Blood Pressure 141/54 08/31/16 08:50 O2 Sat by Pulse Oximetry (%) 98 08/30/16 20:45 Constitutional: Yes: Pallor, Other (generalized weakness, depressed) Eyes: Yes: Conjunctiva Clear, Other (s/p bilateral cataract surgery) HENT: Yes: Atraumatic, Normocephalic Neck: Yes: Supple, Trachea Midline Cardiovascular: Yes: Regular Rate and Rhythm, Other (s/p AV josh ablation and permanent pacemaker insertion) Respiratory: Yes: Regular, CTA Bilaterally Gastrointestinal: Yes: Normal Bowel Sounds, Soft ...Rectal Exam: Yes: Deferred Genitourinary: Yes: WNL Breast(s): Yes: Other (personal hx of breast cancer) Extremities: Yes: Other (generalized muscle weakness) Edema: Yes Edema: LLE: 1+, RLE: 1+ Peripheral Pulses WNL: Yes Integumentary: Yes: Pressure Ulcer Neurological: Yes: Alert, Oriented, Unsteady Gait, Weakness ...Motor Strength: LUE (muscle weakness), LLE (muscle weakness), RUE ( muscle weakness), RLE (muscle weakness) Psychiatric: Yes: Alert, Oriented Labs: CBC, BMP 08/31/16 06:10 08/31/16 06:10 INR, PTT INR 1.09 (0.82-1.09) 08/29/16 17:45 - ....Imaging Other: Report Reviewed (Lab data reviewed) Problem List - Problems (1) Intractable vomiting with nausea Assessment/Plan: Awaiting PEG tube placement, IV fluids, parenteral nutrition. Code(s): R11.2 - NAUSEA WITH VOMITING, UNSPECIFIED Qualifiers: Qualified Code(s): R11.2 - Nausea with vomiting, unspecified (2) Hypovolemia dehydration Assessment/Plan: IV fluids. Code(s): E86.1 - HYPOVOLEMIA (3) Hypokalemia Assessment/Plan: IV KCL Code(s): E87.6 - HYPOKALEMIA Assessment/Plan Plan: acute hypokalemia, acute diarrhea, acute dehydration, esophageal dysmotility disorder, IV fluids, IV parenteral nutrition, IV potassium chloride , DVT prophylaxis, awaiting PEG tube placement for adequate nutrition, hydration and administration of medications and subsequent transfer to [facility]
[2016-08-31] MEDS: ENOXAPARIN NA (PORCINE) 40 MG/0.4 ML DISP.SYRIN SQ SCH (14:14)
[2016-08-31] MEDS: OCULAR LUBRICANT OPHTHALMIC OINTMENT 7 GM TUBE OU SCH ×2 (19:32→21:35)
[2016-08-31] MEDS ORDERED: PT OWN MED DRAWER 7, Y5N ONE (21:03)
[2016-08-31] MEDS: FAT EMULSIONS 250 ML IV SCH (21:34)
[2016-09-01] MEDS: D5-1/2NS+10 MEQ KCL - 1,000 ML IV SCH (06:22)
[2016-09-01] MEDS: AMINO ACIDS 4.25%/D5W 1,000 ML IV SCH ×3 (06:24→21:54)
[2016-09-01 08:50] LABS: CALCIUM 7.9 mg/dL (8.5-10.1); COCKROFT - GAULT 43.945; CREATININE 0.9 mg/dL (0.55-1.02)
[2016-09-01 09:14] LABS: BASOPHIL 0.4 % (0-2.0); EOSINOPHIL 3.8 % (0-4.5); MCH 34.6 pg (25.7-33.7); MCHC 33.9 g/dl (32.0-36.0); MEAN CELL VOLUME 102.2 fl (80-96); MEAN PLT VOLUME 8.2 fl (7.5-11.1); NEUTROPHILS 62.7 % (42.8-82.8); PLATELET COUNT 151 K/MM3 (134-434); RDW 15.5 % (11.6-15.6); WHITE BLOOD COUNT 5.1 K/mm3 (4.0-10.0)
[2016-09-01] MEDS: FOLIC ACID 1 MG TABLET (FP) PO SCH (09:54)
[2016-09-01] MEDS: guaiFENesin 600 MG TABLET.ER (FP) PO SCH ×2 (09:54→21:54)
[2016-09-01] MEDS: RANOLAZINE E.R. 500 MG TABLET (FP) PO SCH ×2 (09:55→21:54)
[2016-09-01] MEDS: ASCORBIC ACID 500 MG TABLET (FP) PO SCH ×2 (09:55→21:54)
[2016-09-01] MEDS: CHOLECALCIFEROL (VITAMIN D3) 1,000 UNIT TABLET (FP) PO SCH (09:55)
[2016-09-01] MEDS: MONTELUKAST NA 10 MG TABLET PO SCH (09:55)
[2016-09-01] MEDS: PANTOPRAZOLE 40 MG TABLET (FP) PO SCH (09:55)
[2016-09-01] MEDS: DOXYCYCLINE HYCLATE 100 MG CAPSULE PO SCH (09:55)
[2016-09-01] MEDS: METOPROLOL SUCCINATE 25 MG TAB.SR.24H (FP) PO SCH (09:55)
[2016-09-01] MEDS ORDERED: PT OWN MED DRAWER 7, Y5N ONE ×3 (09:59→21:38)
[2016-09-01] MEDS: FLUTICASONE PROP 0.05% 16 GM NASAL SPRAY NS SCH (10:00)
[2016-09-01] MEDS: ENOXAPARIN NA (PORCINE) 40 MG/0.4 ML DISP.SYRIN SQ SCH (10:00)
--- NOTE | 2016-09-01 10:45 | EKG ---
Test Reason : Blood Pressure : / mmHG Vent. Rate : 085 BPM Atrial Rate : 067 BPM P-R Int : 000 ms QRS Dur : 148 ms QT Int : 474 ms P-R-T Axes : 000 -87 073 degrees QTc Int : 564 ms Ventricular-paced rhythm WITH FREQUENT PREMATURE VENTRICULAR COMPLEXES ABNORMAL ECG WHEN COMPARED WITH ECG OF 26-JAN-2012 14:57, ELECTRONIC VENTRICULAR PACEMAKER HAS REPLACED SINUS RHYTHM VENT. RATE HAS INCREASED BY 29 BPM Confirmed by JOSE ANTONIO RAMÍREZ MD ([id number]) on 09/01/2016 10:45:35 AM Referred By: MD PASTOR Confirmed By:JOSE ANTONIO RAMÍREZ MD
[2016-09-01] MEDS: KCL 10 MEQ IVPB 100 ML IVPB SCH ×2 (13:15→15:39)
--- NOTE | 2016-09-01 17:21 | PN ---
Progress Note, Physician Chief Complaint: Feeling somewhat stronger today, inability to swallow due to esophageal dysmotility with tertiary contractions, retention and reversed peristalsis, feeling less depressed. 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 - Current Medication List Current Medications: Active Medications Albuterol Sulfate (Ventolin 0.083% Nebulizer Soln -) 1 amp NEB Q8H PRN PRN Reason: SHORT OF BREATH/WHEEZING Albuterol Sulfate (Ventolin Hfa Inhaler -) 2 puff IH Q6H PRN PRN Reason: SHORT OF BREATH/WHEEZING Artificial Tears (Lacri-Lube Eye Ointment -) 1 applic OU HS [facility] Last Admin: 08/31/16 21:35 Dose: 1 applic Ascorbic Acid (Vitamin C -) 500 mg PO BID [facility] Last Admin: 09/01/16 09:55 Dose: Not Given Cholecalciferol (Vitamin D3 -) 5,000 unit PO DAILY [facility] Last Admin: 09/01/16 09:55 Dose: Not Given Doxycycline Hyclate (Vibramycin -) 100 mg PO DAILY [facility] Last Admin: 09/01/16 09:55 Dose: Not Given Enoxaparin Sodium (Lovenox -) 40 mg SQ DAILY [facility] Last Admin: 09/01/16 10:00 Dose: 40 mg Fluticasone Propionate (Flonase -) 1 spray NS DAILY [facility] Last Admin: 09/01/16 10:00 Dose: 1 spray Folic Acid (Folic Acid -) 1 mg PO DAILY [facility] Last Admin: 09/01/16 09:54 Dose: Not Given Guaifenesin (Mucinex -) 600 mg PO BID [facility] Last Admin: 09/01/16 09:54 Dose: Not Given Fat Emulsion Intravenous (Intralipid -) 250 mls @ 20.833 mls/hr IV DAILY@2200 [facility] Last Admin: 08/31/16 21:34 Dose: 20.833 mls/hr Amino Acids (Clinimix -) 1,000 mls @ 75 mls/hr IV Q12H [facility] Last Admin: 09/01/16 14:57 Dose: 75 mls/hr Potassium Chloride/Dextrose/Sod Cl (D5-1/2ns+10 Meq Kcl -) 1,000 mls @ 25 mls/ hr IV ASDIR [facility] Last Admin: 09/01/16 06:22 Dose: 25 mls/hr Metoprolol Succinate (Toprol Xl -) 25 mg PO DAILY [facility] Last Admin: 09/01/16 09:55 Dose: Not Given Montelukast Sodium (Singulair -) 10 mg PO DAILY [facility] Last Admin: 09/01/16 09:55 Dose: Not Given Nitroglycerin (Nitrostat -) 0.4 mg SL Q1H PRN PRN Reason: FOR CHEST PAIN Oxycodone HCl (Roxicodone -) 5 mg PO Q4H PRN PRN Reason: PAIN 6-10 Pantoprazole Sodium (Protonix -) 40 mg PO DAILY [facility] Last Admin: 09/01/16 09:55 Dose: Not Given Ranolazine (Ranexa -) 500 mg PO BID [facility] Last Admin: 09/01/16 09:55 Dose: Not Given - Objective Vital Signs: Vital Signs Temperature 98.9 F 09/01/16 15:17 Pulse Rate 74 09/01/16 15:17 Respiratory Rate 22 09/01/16 15:17 Blood Pressure 121/53 09/01/16 15:17 O2 Sat by Pulse Oximetry (%) 98 08/31/16 21:00 Constitutional: Yes: Pallor, Other (generalized weakness) Eyes: Yes: Other (s/p bilateral cataract surgery) HENT: Yes: Atraumatic, Normocephalic Neck: Yes: Supple, Trachea Midline Cardiovascular: Yes: Other (ventricular paced rhythm) Respiratory: Yes: Regular, CTA Bilaterally Gastrointestinal: Yes: Normal Bowel Sounds, Soft ...Rectal Exam: Yes: Deferred Genitourinary: Yes: WNL Breast(s): Yes: Other (personal history of breast cancer) Musculoskeletal: Yes: Muscle Weakness Extremities: Yes: Other (generalized muscle weakness) Edema: Yes Edema: LLE: 1+, RLE: 1+ Peripheral Pulses WNL: Yes Integumentary: Yes: Pressure Ulcer Neurological: Yes: Alert, Oriented, Unsteady Gait, Weakness ...Motor Strength: LUE (muscle weakness), LLE (muscle weakness), RUE (muscle weakness), RLE (muscle weakness) Psychiatric: Yes: Alert, Oriented Labs: CBC, BMP 09/01/16 08:05 09/01/16 08:05 INR, PTT INR 1.09 (0.82-1.09) 08/29/16 17:45 - ....Imaging EKG: Report Reviewed Other: Report Reviewed (Lab data reviewed) Problem List - Problems (1) Intractable vomiting with nausea Assessment/Plan: Esophageal dysmotility with tertiary contractions, retention and reversed peristalsis. Awaiting PEG tube placement. Code(s): R11.2 - NAUSEA WITH VOMITING, UNSPECIFIED Qualifiers: Qualified Code(s): R11.2 - Nausea with vomiting, unspecified (2) Hypovolemia dehydration Assessment/Plan: IV fluids and parenteral nutrition. Code(s): E86.1 - HYPOVOLEMIA (3) Hypokalemia Assessment/Plan: IV KCL Code(s): E87.6 - HYPOKALEMIA Assessment/Plan Plan: acute hypokalemia, acute frequent regurgitation secondary to esophageal dysmotility with tertiary contractions, retention and reversed peristalsis, acute dehydration, acute abnormal weight loss, IV fluids, IV parenteral nutrition, consultation to GI, DVT prophylaxis, physical therapy.
[2016-09-01] MEDS: OCULAR LUBRICANT OPHTHALMIC OINTMENT 7 GM TUBE OU SCH (21:56)
[2016-09-01] MEDS: FAT EMULSIONS 250 ML IV SCH (21:56)
[2016-09-02] MEDS: AMINO ACIDS 4.25%/D5W 1,000 ML IV SCH ×3 (06:14→21:25)
[2016-09-02 08:08] LABS: BASOPHIL 0.8 % (0-2.0); EOSINOPHIL 3.7 % (0-4.5); MCH 37.2 pg (25.7-33.7); MCHC 36.3 g/dl (32.0-36.0); MEAN CELL VOLUME 102.5 fl (80-96); NEUTROPHILS 60.4 % (42.8-82.8); PLATELET COUNT 161 K/MM3 (134-434); RDW 15.4 % (11.6-15.6); WHITE BLOOD COUNT 4.5 K/mm3 (4.0-10.0)
--- NOTE | 2016-09-02 08:16 | CONSULT ---
Consultation: REQUESTING PROVIDER: CONSULT REQUEST: We have been asked to medically evaluate this patient for( ID ) . HISTORY OF PRESENT ILLNESS: Patient with extensie past medical h/o was admitted in hospital for peg tube placement. Patient has h/o corkscrew esophagus. Patient was found to be dehydrated due due to poor oral intake patient is on IV lipid and clinimix Patient urine grows citrobacter freundi Patient sates that her urine sales when she peen after getting IV potassium, she also states that as she is drinking lot of fluid and getting IV fluid so her frequency is more than usual. denies fever, chills, pain abdomen, productive cough. Patient states she always have non productive cough due to asthma and copd. PMH: obtained from previous notes. intrinsic bronchial asthma, COPD, ischemic heart disease, HCVD c/CHF, rheumatoid arthritis, severe degenerative joint disease of multiple sites, ischemic colitis, hyperlipidemia, glaucoma, osteoporosis, esophageal dysmotility disorder with tertiary contractions, retention and reversed peristalsis, intermittent nausea and vomiting, history of ischemic colitis, s/p Antonio fundoplasty, s/p H Pylori infection and gastritis, s/p cholecystectomy, appendectomy, intermittent mid and right lumbar abdominal pain, s/p ventral hernia repair, Cholelithiasis, Hypothyroidism, Osteopenia, Cholecystitis, AFIB, CAD, CHF, HTN, Hyperlipidemia, [place], Mitral Insufficiency,Atrial septal defect. PSH: obtained from previous notes, Appendectomy, Cataract Removal, Cholecystectomy, Hernia Repair, Joint Replacement, Stent, Tonsillectomy REVIEW OF SYSTEMS: CONSTITUTIONAL: Absent: fever, chills, diaphoresis, generalized weakness, HEENT: Absent: rhinorrhea, nasal congestion, throat pain, CARDIOVASCULAR: Absent: chest pain, syncope, palpitations, RESPIRATORY: Absent: cough, shortness of breath, GASTROINTESTINAL: Absent: abdominal pain, abdominal distension, GENITOURINARY: as described above PHYSICAL EXAMINATION Vital Signs - 24 hr 09/01/16 09/01/16 09/01/16 09:00 09:03 15:17 Temperature 99 F 98.9 F Pulse Rate 73 74 Respiratory 20 22 Rate Blood Pressure 124/45 121/53 O2 Sat by Pulse 100 Oximetry (%) 09/01/16 09/01/16 09/01/16 17:17 21:00 22:00 Temperature 97.5 F L Pulse Rate 83 77 Respiratory 20 20 Rate Blood Pressure 120/56 111/58 O2 Sat by Pulse 100 Oximetry (%) 09/02/16 07:37 Temperature 98.7 F Pulse Rate 81 Respiratory 20 Rate Blood Pressure 130/55 O2 Sat by Pulse Oximetry (%) GENERAL: Awake, alert, and fully oriented, in no acute distress. HEAD: Normal with no signs of trauma. EYES: Pupils equal, EARS, NOSE, THROAT: nares patent, oropharynx clear without exudates. dry mucus membrane. LUNGS: Breath sounds equal, clear to auscultation bilaterally. No wheezes, and no crackles. No accessory muscle use. HEART: s1s2 normal ABDOMEN: Soft, nontender, not distended, normoactive bowel sounds, no guarding, no rebound, no masses. UPPER EXTREMITIES: 2+ pulses, warm, No cyanosis LOWER EXTREMITIES: warm, No calf tenderness.peripheral edema + SKIN: Warm, dry, Laboratory Results - last 24 hr 09/01/16 09/01/16 08:05 08:05 WBC 5.1 RBC 2.76 L Hgb 9.6 L Hct 28.2 L MCV 102.2 H MCHC 33.9 RDW 15.5 Plt Count 151 MPV 8.2 Neutrophils % 62.7 Lymphocytes % 24.8 Monocytes % 8.3 Eosinophils % 3.8 Basophils % 0.4 Sodium 141 Potassium 3.3 L D Chloride 105 Carbon Dioxide 25 Anion Gap 11 BUN 29 H Creatinine 0.9 D Random Glucose 120 H D Calcium 7.9 L Active Medications Generic Name Dose Route Start Last Admin Trade Name Freq PRN Reason Stop Dose Admin Albuterol Sulfate 1 amp 08/30/16 08:15 Ventolin 0.083% Nebulizer Soln - NEB Q8H PRN SHORT OF BREATH/WHEEZING Albuterol Sulfate 2 puff 08/30/16 08:15 Ventolin Hfa Inhaler - IH Q6H PRN SHORT OF BREATH/WHEEZING Artificial Tears 1 applic 08/29/16 22:00 09/01/16 21:56 Lacri-Lube Eye Ointment - OU 1 applic HS [facility] Administration Ascorbic Acid 500 mg 08/30/16 10:00 09/01/16 21:54 Vitamin C - PO Not Given BID [facility] Cholecalciferol 5,000 unit 08/30/16 10:00 09/01/16 09:55 Vitamin D3 - PO Not Given DAILY [facility] Doxycycline Hyclate 100 mg 05/27/17 10:00 09/01/16 09:55 Vibramycin - PO Not Given DAILY [facility] Enoxaparin Sodium 40 mg 08/31/16 14:00 09/01/16 10:00 Lovenox - SQ 40 mg DAILY [facility] Administration Fluticasone Propionate 1 spray 08/30/16 10:00 09/01/16 10:00 Flonase - NS 1 spray DAILY [facility] Administration Folic Acid 1 mg 08/30/16 10:00 09/01/16 09:54 Folic Acid - PO Not Given DAILY [facility] Guaifenesin 600 mg 08/30/16 10:00 09/01/16 21:54 Mucinex - PO Not Given BID [facility] Fat Emulsion Intravenous 250 mls @ 20.833 mls/hr 08/30/16 22:00 09/01/16 21:56 Intralipid - IV 20.833 mls/hr DAILY@2200 [facility] Administration Amino Acids 1,000 mls @ 75 mls/hr 08/31/16 07:00 09/02/16 06:14 Clinimix - IV 75 mls/hr Q12H [facility] Administration Potassium Chloride/Dextrose/Sod Cl 1,000 mls @ 25 mls/hr 08/31/16 06:55 06:22 D5-1/2ns+10 Meq Kcl - IV 25 mls/hr ASDIR [facility] Administration Metoprolol Succinate 25 mg 08/30/16 10:00 09/01/16 09:55 Toprol Xl - PO Not Given DAILY [facility] Montelukast Sodium 10 mg 08/30/16 10:00 09/01/16 09:55 Singulair - PO Not Given DAILY [facility] Nitroglycerin 0.4 mg 08/30/16 08:34 Nitrostat - SL Q1H PRN FOR CHEST PAIN Oxycodone HCl 5 mg 08/30/16 08:43 Roxicodone - PO Q4H PRN PAIN 6-10 Pantoprazole Sodium 40 mg 08/30/16 10:00 09/01/16 09:55 Protonix - PO Not Given DAILY [facility] Ranolazine 500 mg 08/30/16 10:00 09/01/16 21:54 Ranexa - PO Not Given BID [facility] Allergies Allergy/AdvReac Type Severity Reaction Status Date / Time alcohol Allergy Severe Difficulty Verified 08/29/16 16:48 Breathing ciprofloxacin [From Cipro] Allergy Severe Difficulty Verified 08/29/16 16:48 Breathing ciprofloxacin HCl Allergy Severe Difficulty Verified 08/29/16 16:48 [From Cipro] Breathing erythromycin base Allergy Severe Difficulty Verified 08/29/16 16:48 [Erythromycin Base] Breathing metronidazole [From Flagyl] Allergy Severe Difficulty Verified 08/29/16 16:48 Breathing Metronidazole HCl Allergy Severe Difficulty Verified 08/29/16 16:48 [From Flagyl] Breathing Penicillins Allergy Severe Difficulty Verified 08/29/16 16:48 Breathing tetracycline [Tetracycline] Allergy Severe Difficulty Verified 08/29/16 16:48 Breathing adhesive Allergy Verified 08/29/16 16:48 adhesive tape Allergy Verified 08/29/16 16:48 clindamycin Allergy Verified 08/29/16 16:48 codeine [Codeine] Allergy Verified 08/29/16 16:48 isosorbide mononitrate Allergy Verified 08/29/16 16:48 [From Ismo] meperidine HCl [From Demerol] Allergy Verified 08/29/16 16:48 nisoldipine Allergy Verified 08/29/16 16:48 povidone-iodine Allergy Verified 08/29/16 16:48 [From Betadine] prochlorperazine edisylate Allergy Verified 08/29/16 16:48 [From Compazine] prochlorperazine maleate Allergy Verified 08/29/16 16:48 [From Compazine] soap [From Betadine] Allergy Verified 08/29/16 16:48 EITHER Allergy Unknown Uncoded 08/29/16 16:48 ASSESSMENT/PLAN: 86 y/o f with extensive past medical history admitted due to dehydration and for placement of peg tube. Patient found to have asymtomatic UTI from citrobacter freundi. patient is on long course doxycyclin for prosthesis infection ( MRSA) asymtomatic bacteuria as patient is afebrile and asymptomatic. will not give antibiotic for uti. Dispo: We will continue to follow the patient. Thank you for this consultative opportunity. Visit type - Emergency Visit Emergency Visit: Yes ED Registration Date: 08/29/16 Care time: The patient presented to the Emergency Department on the above date and was hospitalized for further evaluation of their emergent condition. - New Patient This patient is new to me today: Yes Date on this admission: 09/02/16 - Critical Care Critical Care patient: No
[2016-09-02 08:33] LABS: COCKROFT - GAULT 49.4445; CREATININE 0.8 mg/dL (0.55-1.02)
[2016-09-02] MEDS: D5-1/2NS+10 MEQ KCL - 1,000 ML IV SCH ×2 (09:27→18:40)
[2016-09-02] MEDS: ENOXAPARIN NA (PORCINE) 40 MG/0.4 ML DISP.SYRIN SQ SCH (09:27)
[2016-09-02] MEDS: FLUTICASONE PROP 0.05% 16 GM NASAL SPRAY NS SCH (09:57)
[2016-09-02] MEDS: FOLIC ACID 1 MG TABLET (FP) PO SCH (09:57)
[2016-09-02] MEDS: guaiFENesin 600 MG TABLET.ER (FP) PO SCH ×2 (09:57→21:24)
[2016-09-02] MEDS: PANTOPRAZOLE 40 MG TABLET (FP) PO SCH (09:57)
[2016-09-02] MEDS: MONTELUKAST NA 10 MG TABLET PO SCH (09:58)
[2016-09-02] MEDS: ASCORBIC ACID 500 MG TABLET (FP) PO SCH ×2 (09:58→21:24)
[2016-09-02] MEDS: RANOLAZINE E.R. 500 MG TABLET (FP) PO SCH ×2 (09:58→21:24)
[2016-09-02] MEDS: DOXYCYCLINE HYCLATE 100 MG CAPSULE PO SCH (09:58)
[2016-09-02] MEDS: METOPROLOL SUCCINATE 25 MG TAB.SR.24H (FP) PO SCH (09:58)
[2016-09-02] MEDS: CHOLECALCIFEROL (VITAMIN D3) 1,000 UNIT TABLET (FP) PO SCH (09:58)
--- NOTE | 2016-09-02 10:51 | PN ---
Progress Note, Physician Chief Complaint: Inability to swallow secondary to esophageal dysmotility with tertiary contractions, retention and reversed peristalsis. History of Present Illness: This 86 yr old w/f with hx of HCVD with CHF, coronary artery disease, CABGX2, s/ p bilateral knee replacement twice, MRSA infection of the left knee, COPD, bronchial asthma, rheumatoid arthritis, s/p AV josh ablation with permanent pacemaker insertion admitted via ER with acute dehydration, acute diarrhea, acute nausea and vomiting, acute debility, acute hypokalemia, PEG tube placement. - Current Medication List Current Medications: Active Medications Albuterol Sulfate (Ventolin 0.083% Nebulizer Soln -) 1 amp NEB Q8H PRN PRN Reason: SHORT OF BREATH/WHEEZING Albuterol Sulfate (Ventolin Hfa Inhaler -) 2 puff IH Q6H PRN PRN Reason: SHORT OF BREATH/WHEEZING Artificial Tears (Lacri-Lube Eye Ointment -) 1 applic OU HS [facility] Last Admin: 09/01/16 21:56 Dose: 1 applic Ascorbic Acid (Vitamin C -) 500 mg PO BID [facility] Last Admin: 09/02/16 09:58 Dose: Not Given Cholecalciferol (Vitamin D3 -) 5,000 unit PO DAILY [facility] Last Admin: 09/02/16 09:58 Dose: Not Given Doxycycline Hyclate (Vibramycin -) 100 mg PO DAILY [facility] Last Admin: 09/02/16 09:58 Dose: Not Given Enoxaparin Sodium (Lovenox -) 40 mg SQ DAILY [facility] Last Admin: 09/02/16 09:27 Dose: 40 mg Enoxaparin Sodium (Lovenox -) 40 mg SQ DAILY [facility] Fluticasone Propionate (Flonase -) 1 spray NS DAILY [facility] Last Admin: 09/02/16 09:57 Dose: Not Given Folic Acid (Folic Acid -) 1 mg PO DAILY [facility] Last Admin: 09/02/16 09:57 Dose: Not Given Guaifenesin (Mucinex -) 600 mg PO BID [facility] Last Admin: 09/02/16 09:57 Dose: Not Given Fat Emulsion Intravenous (Intralipid -) 250 mls @ 20.833 mls/hr IV DAILY@2200 [facility] Last Admin: 09/01/16 21:56 Dose: 20.833 mls/hr Amino Acids (Clinimix -) 1,000 mls @ 75 mls/hr IV Q12H [facility] Last Admin: 09/02/16 06:14 Dose: 75 mls/hr Potassium Chloride/Dextrose/Sod Cl (D5-1/2ns+10 Meq Kcl -) 1,000 mls @ 25 mls/ hr IV ASDIR [facility] Last Admin: 09/02/16 09:27 Dose: Not Given Metoprolol Succinate (Toprol Xl -) 25 mg PO DAILY [facility] Last Admin: 09/02/16 09:58 Dose: Not Given Montelukast Sodium (Singulair -) 10 mg PO DAILY [facility] Last Admin: 09/02/16 09:58 Dose: Not Given Nitroglycerin (Nitrostat -) 0.4 mg SL Q1H PRN PRN Reason: FOR CHEST PAIN Oxycodone HCl (Roxicodone -) 5 mg PO Q4H PRN PRN Reason: PAIN 6-10 Pantoprazole Sodium (Protonix -) 40 mg PO DAILY [facility] Last Admin: 09/02/16 09:57 Dose: Not Given Ranolazine (Ranexa -) 500 mg PO BID [facility] Last Admin: 09/02/16 09:58 Dose: Not Given - Objective Vital Signs: Vital Signs Temperature 98.7 F 09/02/16 07:37 Pulse Rate 81 09/02/16 07:37 Respiratory Rate 20 09/02/16 07:37 Blood Pressure 130/55 09/02/16 07:37 O2 Sat by Pulse Oximetry (%) 100 09/01/16 21:00 Constitutional: Yes: Other (depressed, awaiting PEG tube placement) Eyes: Yes: Conjunctiva Clear, Other (s/p bilateral cataract surgery) HENT: Yes: Atraumatic, Normocephalic Neck: Yes: Supple, Trachea Midline Cardiovascular: Yes: Regular Rate and Rhythm Respiratory: Yes: Regular, CTA Bilaterally Gastrointestinal: Yes: Normal Bowel Sounds, Soft ...Rectal Exam: Yes: Deferred Genitourinary: Yes: WNL Breast(s): Yes: Other (personal history of breast cancer) Musculoskeletal: Yes: Muscle Weakness Extremities: Yes: Other (s/p bilateral knee replacement twice, MRSA infection of the left knee) Edema: Yes Edema: LLE: 1+, RLE: 1+ Peripheral Pulses WNL: Yes Integumentary: Yes: Pressure Ulcer Neurological: Yes: Alert, Oriented, Unsteady Gait, Weakness ...Motor Strength: LUE (muscle weakness), LLE (muscle weakness), RUE (muscle weakness), RLE (muscle weakness) Psychiatric: Yes: Alert, Oriented Labs: CBC, BMP 09/02/16 06:50 09/02/16 06:50 INR, PTT INR 1.09 (0.82-1.09) 08/29/16 17:45 - ....Imaging Other: Report Reviewed (Lab data reviewed, ID not read and appreciated) Problem List - Problems (1) Intractable vomiting with nausea Assessment/Plan: Awaiting PEG tube placement, IV fluids and parenteral nutrition. Code(s): R11.2 - NAUSEA WITH VOMITING, UNSPECIFIED Qualifiers: Qualified Code(s): R11.2 - Nausea with vomiting, unspecified (2) Hypovolemia dehydration Assessment/Plan: IV fluids Code(s): E86.1 - HYPOVOLEMIA (3) Hypokalemia Assessment/Plan: IV KCL Code(s): E87.6 - HYPOKALEMIA Assessment/Plan Plan: acute hypokalemia, acute dehydration, acute nausea and vomiting, acute diarrhea, esophageal dysmotility with tertiary contractions, retention and reversed peristalsis, IV fluids, IV parenteral nutrition, DVT prophylaxis, physical therapy, awaiting PEG tube placement.
--- NOTE | 2016-09-02 10:59 | PN ---
Teaching Attending Note Name of Resident: Amrit Pendleton ATTENDING PHYSICIAN STATEMENT I saw and evaluated the patient. I reviewed the resident's note and discussed the case with the resident. I agree with the resident's findings and plan as documented. SUBJECTIVE: admitted with vomiting that has resolved no fevers or chills no dysuria OBJECTIVE: Vital Signs Period Temp Pulse Resp BP Sys/Spence Pulse Ox Last 24 Hr 97.5 F-98.9 F 74-83 18-22 111-130/53-73 100 cor-rrr lungs clear abd soft,no distention no cvat, no suprapubic tenderness ext no edema CBC, BMP 09/02/16 06:50 09/02/16 06:50 Microbiology 08/29/16 17:45 Blood - Peripheral Venous Blood Culture - Preliminary NO GROWTH OBTAINED AFTER 72 HOURS, INCUBATION TO CONTINUE FOR 2 DAYS. 08/29/16 17:45 Blood - Peripheral Venous Blood Culture - Preliminary NO GROWTH OBTAINED AFTER 72 HOURS, INCUBATION TO CONTINUE FOR 2 DAYS. 08/29/16 17:45 Urine - Urine - Catheterized Urine Culture - Final Citrobacter Freundii Complex ASSESSMENT AND PLAN: asymptomatic bacteriuria- no need to treat esophageal dysmotility- per GI, admitted per PMD for feeding tube multiple antibiotics allergies hx MRSA left TKR infection- 20 years ago, on chronic doxycycline suppressive treatment d/w PMD
[2016-09-02] MEDS: PANTOPRAZOLE SODIUM 100 ML IVPB SCH (12:36)
--- NOTE | 2016-09-02 16:34 | PN ---
GI Progress Note Subjective: No vomiting currently and getting IV hydration via left IJ IV No abdominal pain Patient describes bouts of vomiting and diarrhea Had stanley fundoplication years ago because "the stomach wasnt in the right place" I Spoke with Dr. Donato Gannon this afternoon via telephone, whom she named as the doctor that takes care of her in [facility] "for this problem". He is a hospitalist and has seen Sr. Torrez on 2 admissions in July and August for complaints of N/V. She was treated with bowel rest. 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 She was put on bethanicol and deemed to not be a G-Tube candidate (there was no reason for this in the discharge summary and when I asked sister ryan, she said she had refused the G -Tube). - Objective Vital Signs: Vital Signs Temperature 98.5 F 09/02/16 15:15 Pulse Rate 81 09/02/16 15:15 Respiratory Rate 16 09/02/16 15:15 Blood Pressure 108/57 09/02/16 15:15 O2 Sat by Pulse Oximetry (%) 100 09/01/16 21:00 Constitutional: Calm Eyes: No: Sclera Icterus Cardiovascular: Yes: Regular Rate and Rhythm Respiratory: Yes: CTA Bilaterally Gastrointestinal Inspection: Yes: Scars (midline surgical scar) ...Auscultate: Yes: Normoactive Bowel Sounds ...Palpate: No: Tenderness ...Percussion: No: Tympanitic Edema: No (No LE edema) Labs: CBC, BMP 09/02/16 06:50 09/02/16 06:50 INR, PTT INR 1.09 (0.82-1.09) 08/29/16 17:45 Assessment/Plan Dysphagia: There seems to be some conflicting history and it is unclear why G-Tube was not brought up during her recent hospitalizations to [facility]. I spoke with Dr. Waterman today via telephone and reviewed the conversation I had with Dr. Gannon. i asked that he contact Sr. Torrez's current detailer Dr. Guy Chong. As he has been seeing Sr. most recently and If he has returned from a long weekend, it may be more appropriate for him to make decision re: PEG placement with her as it is unclear what other work-up he has performed on her or had her undergo (Sr. Torrez was uncertain of this herself) . Dr. Waterman advised that he would call Dr. Chong and discuss. For now, obtain MBS
[2016-09-02] MEDS: FAT EMULSIONS 250 ML IV SCH (21:24)
[2016-09-02] MEDS: OCULAR LUBRICANT OPHTHALMIC OINTMENT 7 GM TUBE OU SCH (22:35)
[2016-09-03 07:19] LABS: EOSINOPHIL 4.3 % (0-4.5); MCH 35.4 pg (25.7-33.7); MCHC 34.6 g/dl (32.0-36.0); MEAN CELL VOLUME 102.4 fl (80-96); MEAN PLT VOLUME 7.9 fl (7.5-11.1); NEUTROPHILS 62.1 % (42.8-82.8); PLATELET COUNT 179 K/MM3 (134-434); RDW 15.9 % (11.6-15.6); WHITE BLOOD COUNT 4.7 K/mm3 (4.0-10.0)
[2016-09-03 07:43] LABS: COCKROFT - GAULT 56.508; CREATININE 0.7 mg/dL (0.55-1.02)
[2016-09-03] MEDS: AMINO ACIDS 4.25%/D5W 1,000 ML IV SCH ×3 (09:02→18:50)
[2016-09-03] MEDS: D5-1/2NS+10 MEQ KCL - 1,000 ML IV SCH ×2 (09:02→14:48)
[2016-09-03] MEDS ORDERED: PT OWN MED DRAWER 7, Y5N ONE ×2 (10:54→21:23)
[2016-09-03] MEDS: PANTOPRAZOLE SODIUM 100 ML IVPB SCH (10:56)
[2016-09-03] MEDS: FLUTICASONE PROP 0.05% 16 GM NASAL SPRAY NS SCH (10:58)
[2016-09-03] MEDS: CHOLECALCIFEROL (VITAMIN D3) 1,000 UNIT TABLET (FP) PO SCH (11:02)
[2016-09-03] MEDS: FOLIC ACID 1 MG TABLET (FP) PO SCH (11:02)
[2016-09-03] MEDS: ASCORBIC ACID 500 MG TABLET (FP) PO SCH ×2 (11:04→21:49)
[2016-09-03] MEDS: RANOLAZINE E.R. 500 MG TABLET (FP) PO SCH ×2 (11:09→21:49)
[2016-09-03] MEDS: METOPROLOL SUCCINATE 25 MG TAB.SR.24H (FP) PO SCH (11:09)
[2016-09-03] MEDS: MONTELUKAST NA 10 MG TABLET PO SCH (11:09)
[2016-09-03] MEDS: guaiFENesin 600 MG TABLET.ER (FP) PO SCH ×2 (11:09→21:49)
[2016-09-03] MEDS: DOXYCYCLINE HYCLATE 100 MG CAPSULE PO SCH (11:10)
[2016-09-03] MEDS: ENOXAPARIN NA (PORCINE) 40 MG/0.4 ML DISP.SYRIN SQ SCH (12:32)
--- NOTE | 2016-09-03 12:40 | CONSULT ---
Admitting History and Physical - Primary Care Physician PCP: Calos Castillo - Admission History of Present Illness: Per EMR:"Chief Complaint: Acute exacerbation of generalized muscle weakness, acute fatigue, abnormal loss of weight, acute exacerbation of frequent bouts of regurgitation, feeling very depressed. 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, status post bilateral knee replacement twice, s/p left femur replacement, s/p left tibia repair, cholecystectomy, appendectomy tonsillectomy, atrial septal defect, hyperlipidemia, hypothyroidism, degenerative joint disease of joints of multiple sites, multilevel cervical osteoarthritis with degenerative disc disease with bilateral c7/c6 radiculopathy, proximal muscle weakness, bilateral c7/c6 radiculopathy with partial denervation in muscles innervated by these roots, status post rotator cuff tear and repair with pain - on going, status post abdominal hernia repair, GERD, glaucoma, malignant neoplasm of left female breast, esophageal dysmotility with tertiary contractions, retention and reversed peristalsis, status post Chase fundoplasty,status post AV josh ablation and permanent pacemaker implantation admitted via ER at [facility] with acute exacerbation of generalized muscle weakness, acute dehydration, acute orthostatic hypotension, acute frequent bouts of nausea and regurgitation, acute abnormal weight loss and acute severe fatigue. Patient is in need of PEG tube insertion for feeding, adequate hydration and nutrition." Per GI"Patient describes bouts of vomiting and diarrhea Had stanley fundoplication years ago because "the stomach wasnt in the right place" I Spoke with Dr. Donato Gannon this afternoon via telephone, whom she named as the doctor that takes care of her in [facility] "for this problem". He is a hospitalist and has seen Sr. Torrez on 2 admissions in July and August for complaints of N/V. She was treated with bowel rest. 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 She was put on bethanicol and deemed to not be a G-Tube candidate (there was no reason for this in the discharge summary and when I asked sister ryan, she said she had refused the G -Tube)." Pt reports when she eats or drinks anything,it comes back up suddenly. Pt has been NPO. d/c summary from [facility] states "failed stanley fundoplication, perforation of pharyngeal esophagus in the past during [facility] requiring mediastinal discharge(?), esoph candidiasis,,....zenkers..." History Source: Patient Limitations to Obtaining History: No Limitations - Past Medical History [employer]AD[employer]ER: Yes: Other (depression) Cardiovascular: Yes: AFIB, CAD, CHF, HTN, Hyperlipdemia, [place], Mitral Insufficiency, Other (Atrial septal defect, intermittent palpitations, status post acute inferior wall myocardial infarction) Pulmonary: Yes: Asthma, COPD, Other (intrinsic bronchial asthma) Gastrointestinal: Yes: GERD, Other (esophageal dysmotility disorder with tertiary contractions, retention and reversed peristalsis, intermittent nausea and vomiting, history of ischemic colitis, s/p Chase fundoplasty, s/p H Pylori infection and gastritis, s/p cholecystectomy, appendectomy, intermittent mid and right lumbar abdominal pain, s/p ventral hernia repair,) Hepatobiliary: Yes: Cholelithiasis, Cholecystitis Heme/Onc: Yes: Anemia, B12 Deficiency Infectious Disease: Yes: MRSA (left knee, acute) Psych: Yes: Depression Musculoskeletal: Yes: Chronic low back pain, Osteoarthritis, Other (s/ TKR x2, 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, left shoulder pain related to osteoarthritis) Rheumatology: Yes: Rheumatoid Arthritis ENT: Yes: Allergic Rhinitis Endocrine: Yes: Hypothyroidism, Osteopenia - Past Surgical History Past Surgical History: Yes: Appendectomy, Cataract Removal, Cholecystectomy, Hernia Repair, Joint Replacement, Permanent Pacemaker, Stent, Tonsillectomy - Smoking History Smoking history: Never smoked Have you smoked in the past 12 months: No Aproximately how many cigarettes per day: 0 - Alcohol/Substance Use Hx Alcohol Use: No History of Substance Use: reports: None - Social History ADL: Support Services History of Recent Travel: No History - Admission Reason For Visit: NAUSEA,VOMITING,DEHYDRATION - General Mental Status: Alert and Oriented, Awake and Alert, Able to Follow Commands Attention: Intact Ability to Follow Directions: Good Head/Neck Control: WFL - Hearing Hearing: Normal Speech Evaluation - Communication Primary Language: KOREAN Communication: Yes: Within Normal Limits Oral Expression Ability: Yes: No Impairment - Speech Production Able to Make Needs Known: Yes: WNL Intelligibility: Yes: WNL - Speech Characteristics Voice Loudness: Normal Voice Pitch: Yes: Normal Voice Phonatory-based Quality: Yes: Normal Speech Pattern: Normal Speech Clarity: < 100% Nasal Resonance: Normal Articulation: Yes: Precise - Language/Auditory Comprehension Follows: Yes: 1 Stage Simple Commands - Language/Verbal Expression Able to Respond to Simple Queries: Yes: WNL Able to Communicate Wants and Needs: Yes: WNL Functional Communication Status: Yes: WNL - Memory/Perception half-way Memory: Yes: WNL Short Term Memory: Yes: WNL - Swallow Evaluation/Bedside Assessment Current Nutritional Intake: NPO Oral Secretions: Yes: WFL Dentition: Yes: Adequate Facial Symmetry at Rest: Symmetrical Facial Symmetry on Retraction: Symmetrical Facial Movement: Controlled Against Resistance Opening: Normal Against Resistance Closing: Normal Pucker Lips: Normal Smile: Normal Lingual Movement: Normal, Symmetric Lingual Speed of Movement: Normal Lingual Movement Strgth Against Opposition: Normal Lingual Movement Characteristics: Normal Soft Palate Description: Normal Color, Normal Symmetry Hard Palate Description: Normal Color, Normal Symmetry Laryngeal Movement: Able to Palpate Recommendations - Speech Evaluation, Impression/Plan Impression: PO trial deferred, to be done during MBS, as pt reports "vomiting everything up." Nursing reports that this had not been witnessed. Pt o x 3. Consideration of GT insertion. No drooling, coughing on secretions, vocal wetness. Pt is able to swallow saliva, although kidney dish with tissues,with expectorated phlegm are at bedside. - Dysphagia Impressions/Plan Dysphagia Impressions: Ongoing Evaluation *Silent aspiration: cannot be R/O at bedside Recommendations: MBS w Esophagus (concur with orders placed) - Recommendations Medication Administration: Crushed with applesauce
[2016-09-03] MEDS: KCL 10 MEQ IVPB 100 ML IVPB SCH ×2 (15:13→16:50)
--- NOTE | 2016-09-03 17:19 | PN ---
GI Progress Note Subjective: MBS performed with puree thin liquid. No vomiting noted during / after study. Esophageal dysmotility was noted and a Zenker's Diverticulum. S/S therapist advised trial of a modified diet as outlined in her MBS report and avoidance of G-Tube as well as a calorie count - Objective Vital Signs: Vital Signs Temperature 98.6 F 09/03/16 15:13 Pulse Rate 106 H 09/03/16 15:13 Respiratory Rate 16 09/03/16 15:13 Blood Pressure 111/52 09/03/16 15:13 O2 Sat by Pulse Oximetry (%) 99 09/03/16 09:00 Constitutional: Calm Eyes: No: Sclera Icterus Cardiovascular: Yes: Regular Rate and Rhythm Respiratory: Yes: CTA Bilaterally Gastrointestinal Inspection: No: Distention ...Auscultate: Yes: Normoactive Bowel Sounds ...Palpate: No: Tenderness Labs: CBC, BMP 09/03/16 06:30 09/03/16 06:30 INR, PTT INR 1.09 (0.82-1.09) 08/29/16 17:45 Hepatic Panel Total Bilirubin 0.8 mg/dL (0.2-1.0) D 08/31/16 06:10 AST 43 U/L (15-37) H D 08/31/16 06:10 ALT 34 U/L (12-78) D 08/31/16 06:10 Alkaline Phosphatase 104 U/L (45-117) D 08/31/16 06:10 Albumin 2.1 g/dl (3.4-5.0) L D 08/31/16 06:10 Assessment/Plan Vomiting: No vomiting as of yet Appreciate S/S eval: ordered diet w/ appropriate modifications ? if medication elimination feasible such as ranexa D/W PMD today. Looking into transfer to [facility] as her motility work-up and previous admissions have been there
--- NOTE | 2016-09-03 18:33 | PN ---
Progress Note, Physician Chief Complaint: Afebrile, awake, feeling depressed, started on full liquid diet, tolerating well today. History of Present Illness: This 86 yr old w/f with hx of coronary artery disease, CABGX2, COPD, rheumatoid arthritis, s/p bilateral knee replacement twice, intrinsic bronchial asthma, MRSA infection of the left knee admitted via ER with acute hypokalemia, acute dehydration, acute bouts of nausea, vomiting and diarrhea, esophageal dysmotility with tertiary contractions, retention and reversed peristalsis. - Current Medication List Current Medications: Active Medications Albuterol Sulfate (Ventolin 0.083% Nebulizer Soln -) 1 amp NEB Q8H PRN PRN Reason: SHORT OF BREATH/WHEEZING Albuterol Sulfate (Ventolin Hfa Inhaler -) 2 puff IH Q6H PRN PRN Reason: SHORT OF BREATH/WHEEZING Artificial Tears (Lacri-Lube Eye Ointment -) 1 applic OU HS [facility] Last Admin: 09/02/16 22:35 Dose: 1 applic Ascorbic Acid (Vitamin C -) 500 mg PO BID [facility] Last Admin: 09/03/16 11:04 Dose: 500 mg Cholecalciferol (Vitamin D3 -) 5,000 unit PO DAILY [facility] Last Admin: 09/03/16 11:02 Dose: 5,000 unit Doxycycline Hyclate (Vibramycin -) 100 mg PO DAILY [facility] Last Admin: 09/03/16 11:10 Dose: Not Given Enoxaparin Sodium (Lovenox -) 40 mg SQ DAILY [facility] Last Admin: 09/03/16 12:32 Dose: 40 mg Fluticasone Propionate (Flonase -) 1 spray NS DAILY [facility] Last Admin: 09/03/16 10:58 Dose: 1 spray Folic Acid (Folic Acid -) 1 mg PO DAILY [facility] Last Admin: 09/03/16 11:02 Dose: 1 mg Guaifenesin (Mucinex -) 600 mg PO BID [facility] Last Admin: 09/03/16 11:09 Dose: Not Given Fat Emulsion Intravenous (Intralipid -) 250 mls @ 20.833 mls/hr IV DAILY@2200 [facility] Last Admin: 09/02/16 21:24 Dose: 20.833 mls/hr Amino Acids (Clinimix -) 1,000 mls @ 75 mls/hr IV Q12H [facility] Last Admin: 09/03/16 14:48 Dose: 75 mls/hr Potassium Chloride/Dextrose/Sod Cl (D5-1/2ns+10 Meq Kcl -) 1,000 mls @ 25 mls/ hr IV ASDIR [facility] Last Admin: 09/03/16 14:48 Dose: 25 mls/hr Pantoprazole Sodium (Protonix 40mg Ivpb (Pre-Docked)) 100 mls @ 200 mls/hr IVPB DAILY [facility] Last Admin: 09/03/16 10:56 Dose: 200 mls/hr Metoprolol Succinate (Toprol Xl -) 25 mg PO DAILY [facility] Last Admin: 09/03/16 11:09 Dose: Not Given Montelukast Sodium (Singulair -) 10 mg PO DAILY [facility] Last Admin: 09/03/16 11:09 Dose: Not Given Nitroglycerin (Nitrostat -) 0.4 mg SL Q1H PRN PRN Reason: FOR CHEST PAIN Ranolazine (Ranexa -) 500 mg PO BID [facility] Last Admin: 09/03/16 11:09 Dose: Not Given - Objective Vital Signs: Vital Signs Temperature 98.6 F 09/03/16 15:13 Pulse Rate 106 H 09/03/16 15:13 Respiratory Rate 16 09/03/16 15:13 Blood Pressure 111/52 09/03/16 15:13 O2 Sat by Pulse Oximetry (%) 99 09/03/16 09:00 Constitutional: Yes: Pallor, Other (generalized fatigue and weakness) Eyes: Yes: Conjunctiva Clear, EOM Intact HENT: Yes: Atraumatic, Normocephalic, Other (Zenker's diverticulum) Neck: Yes: Supple, Trachea Midline Cardiovascular: Yes: Regular Rate and Rhythm, Other (s/p AV josh ablation and permanent pacemaker insertion) Respiratory: Yes: Regular, CTA Bilaterally Gastrointestinal: Yes: Normal Bowel Sounds, Soft ...Rectal Exam: Yes: Deferred Genitourinary: Yes: WNL Breast(s): Yes: Other (personal hx of breast cancer) Musculoskeletal: Yes: Muscle Weakness Edema: Yes Edema: LLE: 1+, RLE: 1+ Peripheral Pulses WNL: Yes Integumentary: Yes: Pressure Ulcer Neurological: Yes: Alert, Oriented, Unsteady Gait, Weakness ...Motor Strength: LUE (muscle weakness), LLE (muscle weakness), RUE (muscle weakness), RLE (muscle weakness) Psychiatric: Yes: Alert, Oriented Labs: CBC, BMP 09/03/16 06:30 09/03/16 06:30 INR, PTT INR 1.09 (0.82-1.09) 08/29/16 17:45 - ....Imaging Other: Report Reviewed (Lab data reviewed, GI note read and appreciated) Problem List - Problems (1) Hypovolemia dehydration Assessment/Plan: IV fluids and parenteral nutrition Code(s): E86.1 - HYPOVOLEMIA (2) Hypokalemia Assessment/Plan: IV KCL Code(s): E87.6 - HYPOKALEMIA Assessment/Plan Plan: acute hypokalemia, acute dehydration, esophageal dysmotility with tertiary contractions, retention and reversed peristalsis; Ensure clear with meals, IV fluids, IV parenteral nutrition, transfer to [facility], discussed clinical condition of the patient with Dr. Gannon ([facility]), Dr. Percy Turner and Dr. Guy Chong, all were in agreement against G-tube placement.
[2016-09-03] MEDS: FAT EMULSIONS 250 ML IV SCH (21:48)
[2016-09-03] MEDS: OCULAR LUBRICANT OPHTHALMIC OINTMENT 7 GM TUBE OU SCH (21:49)
[2016-09-04] MEDS: AMINO ACIDS 4.25%/D5W 1,000 ML IV SCH (06:21)
[2016-09-04 08:20] LABS: MAGNESIUM 1.7 mg/dL (1.8-2.4)
[2016-09-04] MEDS: RANOLAZINE E.R. 500 MG TABLET (FP) PO SCH (09:27)
[2016-09-04] MEDS: FOLIC ACID 1 MG TABLET (FP) PO SCH (09:27)
[2016-09-04] MEDS: CHOLECALCIFEROL (VITAMIN D3) 1,000 UNIT TABLET (FP) PO SCH (09:27)
[2016-09-04] MEDS: DOXYCYCLINE HYCLATE 100 MG CAPSULE PO SCH (09:27)
[2016-09-04] MEDS: MONTELUKAST NA 10 MG TABLET PO SCH (09:27)
[2016-09-04] MEDS: METOPROLOL SUCCINATE 25 MG TAB.SR.24H (FP) PO SCH (09:27)
[2016-09-04] MEDS: guaiFENesin 600 MG TABLET.ER (FP) PO SCH (09:27)
[2016-09-04] MEDS: ASCORBIC ACID 500 MG TABLET (FP) PO SCH (09:27)
[2016-09-04] MEDS: ENOXAPARIN NA (PORCINE) 40 MG/0.4 ML DISP.SYRIN SQ SCH (09:28)
[2016-09-04] MEDS: PANTOPRAZOLE SODIUM 100 ML IVPB SCH (09:28)
[2016-09-04] MEDS ORDERED: PT OWN MED DRAWER 7, Y5N ONE ×2 (09:35→14:17)
[2016-09-04] MEDS: FLUTICASONE PROP 0.05% 16 GM NASAL SPRAY NS SCH (09:36)
--- NOTE | 2016-09-04 10:07 | PN ---
GI Progress Note Subjective: Patient tolerated breakfast this morning On calorie count No vomiting or diarrhea reported - Objective Vital Signs: Vital Signs Temperature 98.9 F 09/04/16 06:00 Pulse Rate 73 09/04/16 06:00 Respiratory Rate 20 09/04/16 06:00 Blood Pressure 110/50 09/04/16 06:00 O2 Sat by Pulse Oximetry (%) 99 09/03/16 09:00 Constitutional: Calm Eyes: No: Sclera Icterus Cardiovascular: Yes: Regular Rate and Rhythm Respiratory: Yes: CTA Bilaterally Gastrointestinal Inspection: No: Distention ...Auscultate: Yes: Normoactive Bowel Sounds ...Palpate: No: Tenderness Neurological: Yes: Alert, Oriented Labs: CBC, BMP 09/03/16 06:30 09/03/16 06:30 INR, PTT INR 1.09 (0.82-1.09) 08/29/16 17:45 Laboratory Tests 09/04/16 06:30 Magnesium 1.7 L Assessment/Plan Sister Clarice able to tolerate PO this morning. there have been no episodes of vomiting or diarrhea since admission If diarrhea occurs, check stool for C. Diff, O&P, culture Continue dietary modifications as outlined in S/S evaluation Calorie count Needs electrolytes repleted Consider hematology evaluation for macrocytic anemia Consider medication elimination as feasible Abdominal US given elevated LFTs on admission
[2016-09-04 10:45] LABS: ALK PHOS 92 U/L (45-117); ANION GAP 10 (8-16); BILIRUBIN,TOTAL 0.4 mg/dL (0.2-1.0); CO2 20 mmol/L (21-32); CREATININE 0.7 mg/dL (0.55-1.02); GLUCOSE,RANDOM 97 mg/dL (74-106); SGOT/AST 40 U/L (15-37); SGPT/ALT 37 U/L (12-78); TOT PROT 4.5 g/dl (6.4-8.2)
--- NOTE | 2016-09-04 13:37 | PN ---
Progress Note, TAX COLLECTION COORDINATOR - Note Progress Note: Selected Entries 09/03/16 09/03/16 09/03/16 06:08 09:48 15:13 Breakfast Supper Temperature 98.0 F 98.2 F 98.6 F 09/03/16 09/03/16 09/04/16 16:30 19:00 06:00 Breakfast Supper 50% Temperature 97.7 F 98.9 F 09/04/16 09:45 Breakfast 75% Supper Temperature MBS reviewed with pt/staff. Tolerating diet without vomiting. Rec as per MBS.Pt demonstrated understanding. Pt was reclining when I entered room, after eating some lunch. Counseled on need to have HOB elevated, or OOB, to allow gravity to assist in esophageal motility/emptying.
[2016-09-04] MEDS ORDERED: APIXABAN 2.5 MG TABLET PO SCH (14:00)
[2016-09-04] MEDS: KCL 10 MEQ IVPB 100 ML IVPB SCH ×2 (14:22→15:28)
[2016-09-04 17:24] VITALS: BP 112/63; PULSE 64; TEMP 97.9
[2016-09-05] MEDS ORDERED: ASPIRIN COATED 81 MG TABLET.EC PO SCH (10:00)
--- NOTE | 2016-09-05 11:03 | DS ---
Physical Examination Vital Signs: Vital Signs Temperature 97.9 F 09/04/16 17:22 Pulse Rate 64 09/04/16 17:22 Respiratory Rate 20 09/04/16 17:22 Blood Pressure 112/63 09/04/16 17:22 O2 Sat by Pulse Oximetry (%) 99 09/04/16 09:00 Labs: CBC, BMP 09/03/16 06:30 09/04/16 06:30 Discharge Summary Reason For Visit: NAUSEA,VOMITING,DEHYDRATION Condition: Stable - Instructions Diet, Activity, Other Instructions: Resume all oral medications Discontinue ultrasound of abdomen Transfer to [facility]. Total time spent over 30 minutes on 09/04/2016. Referrals: Calos Castillo MD [Primary Care Provider] - Disposition: [facility] - Home Medications Comprehensive Discharge Medication List: Ambulatory Orders Albuterol Sulfate Inhaler - [Ventolin Hfa Inhaler -] 2 puff IH ASDIR 08/29/16 Apixaban [Eliquis] 2.5 mg PO BID 08/29/16 Ascorbate Calcium [Vitamin C] 500 mg PO DAILY 08/29/16 Aspirin [ASA -] 81 mg PO DAILY 08/29/16 Cholecalciferol (Vitamin D3) [Vitamin D3] 5,000 unit PO DAILY 08/29/16 Docusate Sodium [Colace -] 200 mg PO BID 08/29/16 Fluticasone Prop 0.05% Nasal [Flonase -] 1 spray NS DAILY 08/29/16 Fluticasone Propionate [Flovent Diskus] 100 mcg IH DAILY 08/29/16 Folic Acid 1 mg PO DAILY 08/29/16 Furosemide [Lasix] 20 mg PO Q48H 08/29/16 Guaifenesin [Mucinex] 600 mg PO BID 08/29/16 Ipratropium [place] 15 ml NS BID 08/29/16 Metoprolol Succinate [Toprol Xl -] 25 mg PO DAILY 08/29/16 Montelukast Na [Singulair -] 10 mg PO HS 08/29/16 Nitroglycerin Sublingual [Nitrostat -] 0.4 mg SL ASDIR 08/29/16 Ondansetron HCl [Zofran] 4 mg PO DAILY 08/29/16 Oxycodone HCl/Acetaminophen [Percocet 5-325 mg Tablet] 1 tab PO Q4H PRN 05/26/ 17 Pantoprazole Sodium [Protonix] 40 mg PO DAILY 08/29/16 Propylene Glycol/Peg 400/Pf [Systane Ultra 0.4-0.3% Eye Drp] 1 each OP QID 08/29 Ranolazine [Ranexa] 500 mg PO BID 08/29/16 Rosuvastatin Calcium [Crestor] 40 mg PO DAILY 08/29/16
== END 2016-09-04 18:00 | DRG 392 ==
LOC: FER 16:30 → J8W 20:19
PROVIDERS: ADMIT Internal Medicine; ATTEND Internal Medicine
DX: K22.4 Dyskinesia of esophagus (principal); N39.0 Urinary tract infection, site not specified; E86.0 Dehydration; E86.1 Hypovolemia; R63.4 Abnormal weight loss; Z68.21 Body mass index [BMI] 21.0-21.9, adult; I25.10 Atherosclerotic heart disease of native coronary artery without angina pectoris; E78.5 Hyperlipidemia, unspecified; I25.2 Old myocardial infarction; I48.91 Unspecified atrial fibrillation; J44.9 Chronic obstructive pulmonary disease, unspecified; J45.909 Unspecified asthma, uncomplicated; K21.9 Gastro-esophageal reflux disease without esophagitis; D64.9 Anemia, unspecified; E53.8 Deficiency of other specified B group vitamins; M54.5 Low back pain; F32.9 Major depressive disorder, single episode, unspecified; M06.9 Rheumatoid arthritis, unspecified; E03.9 Hypothyroidism, unspecified; M85.80 Other specified disorders of bone density and structure, unspecified site; M47.892 Other spondylosis, cervical region; H40.9 Unspecified glaucoma; R11.2 Nausea with vomiting, unspecified; E87.6 Hypokalemia; I34.0 Nonrheumatic mitral (valve) insufficiency; I11.0 Hypertensive heart disease with heart failure; I50.9 Heart failure, unspecified; R19.2 Visible peristalsis; B96.89 Other specified bacterial agents as the cause of diseases classified elsewhere; Z95.0 Presence of cardiac pacemaker; Z85.3 Personal history of malignant neoplasm of breast; Z96.653 Presence of artificial knee joint, bilateral; Z95.1 Presence of aortocoronary bypass graft
CPT/HCPCS: 36415; 74230-TC; 80048; 80053; 81003; 81015; 82550; 82728; 83605; 83690; 83735; 84484; 85025; 85610; 87040; 87086; 87186; 92611-GN; 93005; 97161; 99283-25

== ENCOUNTER 2016-10-27 16:03 | Inpatient (IN) | payer OTHER ==
[2016-10-27] MEDS ORDERED: ALBUTEROL SO4 6.7 GM HFA INHALER IH PRN (18:00)
[2016-10-27] MEDS ORDERED: FUROSEMIDE 40 MG TABLET (FP) PO ONE (18:15)
[2016-10-27] MEDS ORDERED: NITROGLYCERIN SUBLINGUAL 1/150 0.4 MG TAB SL PRN (18:16)
--- NOTE | 2016-10-27 18:27 | HOSP ---
Physical Examination Vital Signs: Vital Signs Temperature 98.4 F 10/27/16 16:18 Pulse Rate 72 10/27/16 16:18 Respiratory Rate 18 10/27/16 16:18 Blood Pressure 117/64 10/27/16 16:18 O2 Sat by Pulse Oximetry (%) Hospitalist Encounter Assessment: Called by nursing cutting room supervisor for difficult IV access; patient requires PRBC transfusion. 20g IV catheter placed left EJ. Please re-call if needed.
[2016-10-27 20:15] LABS: MCH 33.8 pg (25.7-33.7); MCHC 32.6 g/dl (32.0-36.0); MEAN CELL VOLUME 103.6 fl (80-96); MEAN PLT VOLUME 6.8 fl (7.5-11.1); PLATELET COUNT 280 K/MM3 (134-434); RDW 15.9 % (11.6-15.6); WHITE BLOOD COUNT 3.8 K/mm3 (4.0-10.0)
[2016-10-27] MEDS ORDERED: MONTELUKAST NA 10 MG TABLET PO SCH (22:00)
[2016-10-27] MEDS ORDERED: IPRATROPIUM BROMIDE NS SCH (22:00)
[2016-10-27] MEDS ORDERED: DOCUSATE SODIUM 100 MG CAPSULE (FP) PO SCH (22:00)
[2016-10-27] MEDS ORDERED: SENNOSIDES 8.6MG TABLET (FP) PO SCH (22:00)
[2016-10-27] MEDS ORDERED: MOMETASONE FUROATE 220 MCG/IH INHALER IH SCH (22:00)
[2016-10-27] MEDS ORDERED: ROSUVASTATIN CA 20 MG TABLET (FP) PO SCH (22:00)
[2016-10-27] MEDS: RANOLAZINE E.R. 500 MG TABLET (FP) PO SCH (22:03)
[2016-10-28] MEDS ORDERED: FUROSEMIDE 40 MG TABLET (FP) PO ONE (03:15)
[2016-10-28] MEDS ORDERED: FLUTICASONE PROP 0.05% 16 GM NASAL SPRAY NS SCH (10:00)
[2016-10-28] MEDS ORDERED: METOPROLOL SUCCINATE 25 MG TAB.SR.24H (FP) PO SCH (10:00)
[2016-10-28] MEDS ORDERED: PANTOPRAZOLE 40 MG TABLET (FP) PO SCH (10:00)
[2016-10-28] MEDS ORDERED: FOLIC ACID 1 MG TABLET (FP) PO SCH (10:00)
[2016-10-28] MEDS ORDERED: FUROSEMIDE 20 MG TABLET (FP) PO SCH (10:00)
[2016-10-28] MEDS ORDERED: ONDANSETRON 4 MG TABLET PO SCH (10:00)
[2016-10-28] MEDS: RANOLAZINE E.R. 500 MG TABLET (FP) PO SCH (10:47)
--- NOTE | 2016-10-28 11:28 | HP ---
Admitting History and Physical - Admission Chief Complaint: 86 y.o F with chronic anemia was sent from [facility] for PRBC transfusion. Seen by hematology who suggested PRBC support for MPN vs MDS. 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: Other (depression) Cardiovascular: Yes: AFIB, CAD, CHF, HTN, Hyperlipdemia, DC, Mitral Insufficiency, Other (Atrial septal defect, intermittent palpitations, status post acute inferior wall myocardial infarction) Pulmonary: Yes: Asthma, COPD, Other (intrinsic bronchial asthma) Gastrointestinal: Yes: GERD, Other (esophageal dysmotility disorder with tertiary contractions, retention and reversed peristalsis, intermittent nausea and vomiting, history of ischemic colitis, s/p Chase fundoplasty, s/p H Pylori infection and gastritis, s/p cholecystectomy, appendectomy, intermittent mid and right lumbar abdominal pain, s/p ventral hernia repair,) Hepatobiliary: Yes: Cholelithiasis, Cholecystitis Heme/Onc: Yes: Anemia, B12 Deficiency Infectious Disease: Yes: MRSA (left knee, acute) Psych: Yes: Depression Musculoskeletal: Yes: Chronic low back pain, Osteoarthritis, Other (s/ TKR x2, 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, left shoulder pain related to osteoarthritis) Rheumatology: Yes: Rheumatoid Arthritis ENT: Yes: Allergic Rhinitis Endocrine: Yes: Hypothyroidism, Osteopenia - Past Surgical History Past Surgical History: Yes: Appendectomy, Cataract Removal, Cholecystectomy, Hernia Repair, Joint Replacement, Permanent Pacemaker, Stent, Tonsillectomy - Smoking History Smoking history: Never smoked Have you smoked in the past 12 months: No Aproximately how many cigarettes per day: 0 - Alcohol/Substance Use Hx Alcohol Use: No History of Substance Use: reports: None - Social History ADL: Support Services History of Recent Travel: No Home Medications - Allergies Allergies/Adverse Reactions: Allergies Allergy/AdvReac Type Severity Reaction Status Date / Time alcohol Allergy Severe Difficulty Verified 08/29/16 16:48 Breathing ciprofloxacin [From Cipro] Allergy Severe Difficulty Verified 08/29/16 16:48 Breathing ciprofloxacin HCl Allergy Severe Difficulty Verified 08/29/16 16:48 [From Cipro] Breathing erythromycin base Allergy Severe Difficulty Verified 08/29/16 16:48 [Erythromycin Base] Breathing metronidazole [From Flagyl] Allergy Severe Difficulty Verified 08/29/16 16:48 Breathing Metronidazole HCl Allergy Severe Difficulty Verified 08/29/16 16:48 [From Flagyl] Breathing Penicillins Allergy Severe Difficulty Verified 08/29/16 16:48 Breathing tetracycline [Tetracycline] Allergy Severe Difficulty Verified 08/29/16 16:48 Breathing adhesive Allergy Verified 08/29/16 16:48 adhesive tape Allergy Verified 08/29/16 16:48 clindamycin Allergy Verified 08/29/16 16:48 codeine [Codeine] Allergy Verified 08/29/16 16:48 isosorbide mononitrate Allergy Verified 08/29/16 16:48 [From Ismo] meperidine HCl [From Demerol] Allergy Verified 08/29/16 16:48 nisoldipine Allergy Verified 08/29/16 16:48 povidone-iodine Allergy Verified 08/29/16 16:48 [From Betadine] prochlorperazine edisylate Allergy Verified 08/29/16 16:48 [From Compazine] prochlorperazine maleate Allergy Verified 08/29/16 16:48 [From Compazine] soap [From Betadine] Allergy Verified 08/29/16 16:48 EITHER Allergy Unknown Uncoded 08/29/16 16:48 - Home Medications Home Medications: Ambulatory Orders Albuterol Sulfate Inhaler - [Ventolin HFA Inhaler -] 2 puff IH ASDIR 08/29/16 Ascorbate Calcium [Vitamin C] 500 mg PO DAILY 08/29/16 Aspirin [ASA -] 81 mg PO DAILY 08/29/16 Cholecalciferol (Vitamin D3) [Vitamin D3] 5,000 unit PO DAILY 08/29/16 Docusate Sodium [Colace -] 200 mg PO HS 08/29/16 Fluticasone Prop 0.05% Nasal [Flonase -] 1 spray NS DAILY 08/29/16 Fluticasone Propionate [Flovent Diskus] 100 mcg IH DAILY 08/29/16 Folic Acid 1 mg PO DAILY 08/29/16 Furosemide [Lasix] 20 mg PO Q48H 08/29/16 Guaifenesin [Mucinex] 600 mg PO BID 08/29/16 Ipratropium [place] 15 ml NS BID 08/29/16 Metoprolol Succinate [Toprol XL -] 25 mg PO DAILY 08/29/16 Montelukast Na [Singulair -] 10 mg PO HS 08/29/16 Nitroglycerin Sublingual [Nitrostat -] 0.4 mg SL ASDIR 08/29/16 Ondansetron HCl [Zofran] 4 mg PO DAILY 08/29/16 Oxycodone HCl/Acetaminophen [Percocet 5-325 mg Tablet] 1 tab PO Q4H PRN Pantoprazole Sodium [Protonix] 40 mg PO DAILY 08/29/16 Ranolazine [Ranexa] 500 mg PO BID 08/29/16 Rosuvastatin Calcium [Crestor] 40 mg PO DAILY 08/29/16 Sennosides [Senna] 8.6 mg PO HS 10/27/16 Family Disease History - Family Disease History Family Disease History: Heart Disease: Mother (breast, ovarian), Brother, [place]: Father (lung,), Mother Review of Systems - Review of Systems Constitutional: reports: No Symptoms Eyes: reports: No Symptoms HENT: reports: No Symptoms Neck: reports: No Symptoms Cardiovascular: reports: Edema, Palpitations Respiratory: reports: Cough, SOB, SOB on Exertion Gastrointestinal: reports: No Symptoms Genitourinary: reports: No Symptoms Physical Examination Vital Signs: Vital Signs Temperature 98 F 10/27/16 22:00 Pulse Rate 72 10/27/16 22:00 Respiratory Rate 18 10/27/16 22:00 Blood Pressure 137/72 10/27/16 22:00 O2 Sat by Pulse Oximetry (%) 99 10/27/16 21:00 Constitutional: Yes: No Distress, Calm, Pallor Eyes: Yes: Conjunctiva Clear HENT: Yes: Atraumatic, Normocephalic Neck: Yes: Supple Cardiovascular: Yes: Pulse Irregular Respiratory: Yes: CTA Bilaterally Gastrointestinal: Yes: Normal Bowel Sounds, Soft Edema: LLE: 2+, RLE: 2+ Psychiatric: Yes: Alert, Oriented Labs: CBC, BMP 10/27/16 20:00 Assessment/Plan 86 y.o F for PRBC tx for chronic anemia due to MPN or MDS. Will d/c to [facility] post tx.
[2016-10-28 11:40] VITALS: BP 119/63; PULSE 71; TEMP 98.1
== END 2016-10-28 11:38 | DRG 812 ==
LOC: JBLOOD 16:03 → J5S 16:03 → JBLOOD 17:59 → J5S 17:59
PROVIDERS: ADMIT Internal Medicine; ATTEND Internal Medicine
PROC: 05HQ33Z Insertion of Infusion Device into Left External Jugular Vein, Percutaneous Approach (ICD-10-PCS; 2016-10-27)
PROC: 30233N1 Transfusion of Nonautologous Red Blood Cells into Peripheral Vein, Percutaneous Approach (ICD-10-PCS; principal; 2016-10-28)
DX: D64.89 Other specified anemias (principal); I11.0 Hypertensive heart disease with heart failure; I50.9 Heart failure, unspecified; J44.9 Chronic obstructive pulmonary disease, unspecified; I25.10 Atherosclerotic heart disease of native coronary artery without angina pectoris; K22.4 Dyskinesia of esophagus; E53.8 Deficiency of other specified B group vitamins; E03.9 Hypothyroidism, unspecified
CPT/HCPCS: 36415; 36430; 85027; 86850; 86900; 86901; 86922; P9038; P9058

== ENCOUNTER 2018-07-02 17:52 | Inpatient (IN) | payer OTHER ==
[2018-07-02 18:01] VITALS: BMI 27.1
--- NOTE | 2018-07-02 18:17 | PDOC ---
History of Present Illness - General Chief Complaint: CVA/TIA Stated Complaint: CVA/TIA Time Seen by Provider: 07/02/18 18:09 - History of Present Illness Initial Comments: Sr Angel Torrez is an 88yo woman with a PMH of a-fib on Eliquis, CAD s/p DE, CHF, HTN, HLD, s/p pacemaker, mitral insufficiency, asthma/COPD, GERD, esophageal dysmotility, dysphagia, reverse peristalsis, chronic anemia and B12 deficiency, and arthritis who presents with acute onset of AMS this afternoon. She presents from [facility]. Per EMS, staff at [facility] report that Sr Ortiz received her afternoon meds at 4:30 this afternoon, and she was in her general state of health at that time. She is generally conversational and alert. She rang the angulo for assistance shortly afterwards, and she was found to be poorly responsive and not speaking. They were concerned about a CVA and called EMS immediately. EMS checked a blood glucose, which was in the mid-high 100's on arrival at the scene. Sr Ortiz has not been following commands while they have been present. It is unknown whether Sr Ortiz has had any new or infectious symptoms recently. Past History - Past Medical History Allergies/Adverse Reactions: Allergies Allergy/AdvReac Type Severity Reaction Status Date / Time alcohol Allergy Severe Difficulty Verified 07/02/18 17:57 Breathing ciprofloxacin [From Cipro] Allergy Severe Difficulty Verified 07/02/18 17:57 Breathing ciprofloxacin HCl Allergy Severe Difficulty Verified 07/02/18 17:57 [From Cipro] Breathing erythromycin base Allergy Severe Difficulty Verified 07/02/18 17:57 [Erythromycin Base] Breathing metronidazole [From Flagyl] Allergy Severe Difficulty Verified 07/02/18 17:57 Breathing Metronidazole HCl Allergy Severe Difficulty Verified 07/02/18 17:57 [From Flagyl] Breathing Penicillins Allergy Severe Difficulty Verified 07/02/18 17:57 Breathing tetracycline [Tetracycline] Allergy Severe Difficulty Verified 07/02/18 17:57 Breathing adhesive Allergy Verified 07/02/18 17:57 adhesive tape Allergy Verified 07/02/18 17:57 clindamycin Allergy Verified 07/02/18 17:57 codeine [Codeine] Allergy Verified 07/02/18 17:57 isosorbide mononitrate Allergy Verified 07/02/18 17:57 [From Ismo] meperidine HCl [From Demerol] Allergy Verified 07/02/18 17:57 nisoldipine Allergy Verified 07/02/18 17:57 povidone-iodine Allergy Verified 07/02/18 17:57 [From Betadine] prochlorperazine edisylate Allergy Verified 07/02/18 17:57 [From Compazine] prochlorperazine maleate Allergy Verified 07/02/18 17:57 [From Compazine] soap [From Betadine] Allergy Verified 07/02/18 17:57 EITHER Allergy Unknown Uncoded 07/02/18 17:57 Home Medications: Ambulatory Orders Albuterol Sulfate Inhaler - [Ventolin HFA Inhaler -] 2 puff IH ASDIR 08/29/16 Ascorbate Calcium [Vitamin C] 500 mg PO DAILY 08/29/16 Aspirin [ASA -] 81 mg PO DAILY 08/29/16 Cholecalciferol (Vitamin D3) [Vitamin D3] 5,000 unit PO DAILY 08/29/16 Docusate Sodium [Colace -] 200 mg PO HS 08/29/16 Fluticasone Prop 0.05% Nasal [Flonase -] 1 spray NS DAILY 08/29/16 Fluticasone Propionate [Flovent Diskus] 100 mcg IH DAILY 08/29/16 Folic Acid 1 mg PO DAILY 08/29/16 Furosemide [Lasix] 20 mg PO Q48H 08/29/16 Guaifenesin [Mucinex] 600 mg PO BID 08/29/16 Ipratropium [place] 15 ml NS BID 08/29/16 Metoprolol Succinate [Toprol XL -] 25 mg PO DAILY 08/29/16 Montelukast Na [Singulair -] 10 mg PO HS 08/29/16 Nitroglycerin Sublingual [Nitrostat -] 0.4 mg SL ASDIR 08/29/16 Ondansetron HCl [Zofran] 4 mg PO DAILY 08/29/16 Oxycodone HCl/Acetaminophen [Percocet 5-325 mg Tablet] 1 tab PO Q4H PRN Pantoprazole Sodium [Protonix] 40 mg PO DAILY 08/29/16 Ranolazine [Ranexa] 500 mg PO BID 08/29/16 Rosuvastatin Calcium [Crestor] 40 mg PO DAILY 08/29/16 Sennosides [Senna] 8.6 mg PO HS 10/27/16 Anemia: Yes Asthma: Yes Cancer: Yes (BILATERAL BREAST) Cardiac Disorders: Yes (ashd, cabg,) CVA: No COPD: Yes CHF: Yes Dementia: No Diabetes: No GI Disorders: Yes (gi bleed, corkscrew esophagus) Disorders: No HTN: Yes Hypercholesterolemia: Yes Liver Disease: No Seizures: No Thyroid Disease: No - Surgical History Abdominal Surgery: No Appendectomy: No Cardiac Surgery: Yes (stents 2) Cholecystectomy: No Lung Surgery: No Neurologic Surgery: No Orthopedic Surgery: Yes (Andrew TKR w/ bilat revisions) - Immunization History Immunization Up to Date: Yes - Suicide/Smoking/Psychosocial Hx Smoking Status: No Smoking History: Never smoked Years of Tobacco Use: 0 Have you smoked in the past 12 months: No Number of Cigarettes Smoked Daily: 0 Information on smoking cessation initiated: No Hx Alcohol Use: No Drug/Substance Use Hx: No Substance Use Type: None Hx Substance Use Treatment: No Review of Systems - Review of Systems Comments:: 07/02/18 18:49 Could not obtain; pt nonverbal *Physical Exam - Vital Signs Last Vital Signs Temp Pulse Resp BP Pulse Ox 97.9 F 73 18 127/72 97 07/02/18 17:58 07/02/18 17:58 07/02/18 17:58 07/02/18 17:58 07/02/18 17:58 - Physical Exam Comments: General: Mild distress HEENT: PERRL, EOMI, MMM, no facial droop Cards: Irregular, no murmur appreciated Pulm: Comfortable on room air, clear to auscultation bilaterally anterior/ laterally Abd: Soft, nontender, nondistended Ext: Atraumatic. 2+ LE edema. Moves all extremities equally Vasc: Extremities WWP. Neuro: Awake. Nonverbal. Does not follow commands. Withdraws to pain in all extremities. CN grossly intact, normal speech. ED Treatment Course - LABORATORY CBC & Chemistry Diagram: 07/02/18 18:35 07/02/18 18:35 - RADIOLOGY Radiology Studies Ordered: Category Date Time Status HEAD CT WITHOUT CONTRAST [CT] Stat CT Scan 07/02/18 18:10 Ordered CHEST X-RAY PORTABLE* [RAD] Stat Radiology 07/02/18 18:10 Ordered Medical Decision Making - Medical Decision Making 07/02/18 18:13 Debbie Torrez is an 88yo woman with a PMH of a-fib on Eliquis, CAD s/p DE, CHF, HTN, HLD, s/p pacemaker, mitral insufficiency, asthma/COPD, GERD, esophageal dysmotility, dysphagia, reverse peristalsis, chronic anemia and B12 deficiency, and arthritis who presents with acute onset of AMS at approximately 4:30 today, per staff at [facility]. She has no focal deficits appreciated on exam but is minimally responsive, does not follow commands, and is currently nonverbal. She does move all extremities. Per [facility], she is conversational at baseline. - Cannot r/o CVA or bleed. Will obtain CT head, especially given anticoagulant use. - Could be sepsis, no known symptoms, fall/trauma. No hypoglycemia, over 100 per EMS. - CBC, chemistry, lactate, UA, urine cultures, blood cultures, trop, EKG, CXR, CT head ordered 07/02/18 19:18 - Labs sent. CBC completed, no abnormalities. Remainder pending - Pt taken to CT - Sign out given to Dr Fernandes for remainder of ED care. Discussed with Dr Hernández. Mercedez Gonsalez PGY1 *DC/Admit/Observation/Transfer Diagnosis at time of Disposition: Altered mental status - Referrals Referrals: Real Zuleta MD [Primary Care Provider] - - Patient Instructions - Post Discharge Activity
--- NOTE | 2018-07-02 19:13 | PDOC ---
*Physical Exam - Vital Signs Last Vital Signs Temp Pulse Resp BP Pulse Ox 97.9 F 73 18 127/72 96 07/02/18 17:58 07/02/18 17:58 07/02/18 17:58 07/02/18 17:58 07/02/18 19:08 ED Treatment Course - LABORATORY CBC & Chemistry Diagram: 07/02/18 18:35 07/02/18 18:35 Medical Decision Making - Medical Decision Making 07/02/18 19:[address] Gonsalez. Patient is an 88 yo female w/ pmh of afib on eliquis s/p pacemaker, CAD s/p AR, CHF, HTN, HLD, mitral insufficiency, asthma, COPD, GERD, esophageal dysmotility, dysphagia, reverse peristalsis, chronic anemia, and arthritis who presents for evaluation of ams. Patient currently pending all laboratory evaluation as well as Head CT. Patient will likely be admitted for further care. 07/02/18 20:[address] negative. Labs grossly wnl as below. Upon exam patient completely oriented. Patient adds to history that she is s/p total hysterectomy and LORETTA oophorectomy after she was noted to have ovarian cancer many years ago. Has had 2-3 days of urinary bleeding and been started on ABX for UTI. Reports that the last thing she remembers from today is urinating some blood and then vomiting before waking up in ED. Patient exam completely normal at this time; patient alert and oriented and reports she is moving all extremities at baseline ( patient is wheelchair bound normally). AOx3, no focal deficits. *DC/Admit/Observation/Transfer Diagnosis at time of Disposition: Altered mental status Qualifiers: Altered mental status type: unspecified Qualified Code(s): R41.82 - Altered mental status, unspecified Syncope Qualifiers: Syncope type: unspecified Qualified Code(s): R55 - Syncope and collapse - Discharge Dispostion Decision to Admit order: Yes - Referrals Referrals: Real Zuleta MD [Primary Care Provider] - - Patient Instructions - Post Discharge Activity
[2018-07-02 19:14] LABS: BASO % 0.7 % (0-2.0); EOS % 1.4 % (0-4.5); HEMATOCRIT 29.2 % (32.4-45.2); HEMOGLOBIN 9.7 GM/dL (10.7-15.3); MCH 35.5 pg (25.7-33.7); MCHC 33.2 g/dl (32.0-36.0); MEAN CELL VOLUME 106.9 fl (80-96); MEAN PLT VOLUME 7.2 fl (7.5-11.1); NEUT % 75.9 % (42.8-82.8); PLATELET COUNT 189 K/MM3 (134-434); RBC 2.73 M/mm3 (3.60-5.2); WHITE BLOOD COUNT 5.6 K/mm3 (4.0-10.0)
[2018-07-02 19:28] LABS: INR 1.42 (0.83-1.09); PROTHROMBIN TIME (PATIENT) 16.8 SEC (9.7-13.0)
[2018-07-02 19:30] LABS: ACTIVATED PTT 33.6 SECONDS (25.2-36.5)
[2018-07-02 19:48] LABS: ALBUMIN 3.2 g/dl (3.4-5.0); ALK PHOS 44 U/L (45-117); ANION GAP 9 MMOL/L (8-16); BILIRUBIN,TOTAL 0.3 mg/dL (0.2-1); BLOOD UREA NITROGEN 21 mg/dL (7-18); CALCIUM 8.2 mg/dL (8.5-10.1); CHLORIDE 105 mmol/L (98-107); CO2 27 mmol/L (21-32); CREATININE 1.1 mg/dL (0.55-1.3); GLUCOSE,RANDOM 109 mg/dL (74-106); POTASSIUM 4.3 mmol/L (3.5-5.1); SGOT/AST 23 U/L (15-37); SGPT/ALT 15 U/L (13-61); SODIUM 140 mmol/L (136-145); TOT PROT 6.2 g/dl (6.4-8.2)
[2018-07-02 20:24] LABS: MACROCYTOSIS 1+
[2018-07-02 21:53] LABS: EPI CELLS 0.4 /HPF (0-5); URINE APPEARANCE CLEAR; URINE BACTERIA 0.8 /hpf (NEGATIVE); URINE BILIRUBIN NEGATIVE (NEGATIVE); URINE CASTS 2 /hpf (0-8); URINE COLOR YELLOW; URINE GLUCOSE (UA) NEGATIVE (NEGATIVE); URINE KETONE NEGATIVE (NEGATIVE); URINE LEUK ESTERASE 1+ (NEGATIVE); URINE NITRITE NEGATIVE (NEGATIVE); URINE PROTEIN NEGATIVE (NEGATIVE); URINE RBC 254 /hpf (0-4); URINE UROBILINOGEN 0.2 mg/dL (0.2-1.0); URINE WBC 9 /hpf (0-5)
--- NOTE | 2018-07-02 22:40 | HP ---
CHIEF COMPLAINT:AMS, Syncope PCP:Katie HISTORY OF PRESENT ILLNESS: Sr Angel Torrez is an 88yo woman with a PMH of a-fib on Eliquis, CAD s/p [place], CHF, HTN, HLD, s/p pacemaker, mitral insufficiency, asthma/COPD, GERD, esophageal dysmotility, dysphagia, reverse peristalsis, chronic anemia and B12 deficiency, and arthritis, pt from [facility], pt seen in ED, pt alert,oriented x3, pt reports having blood in urine for past 3-4 days, bright red blood, pt went to bathroom around 4pm, was getting up from toilet and was not able to feel her fingers, pt was able to pull the cord for help, pt was not able to communicate to nurse. pt brought to ED for evaluation. pt was started on Macrobid for UTI in [place]. pt with multiple allergies. pt reports she was seen by her Cardio this past Thursday, check up was good and was to follow up in 3 months , pt unable to recall Cardio name. ER course was notable for: (1)CT Head no acute findings (2)UA +leuk, 2+blood (3) Recent Travel: PAST MEDICAL HISTORY: a-fib on Eliquis, CAD s/p [place], CHF, HTN, HLD, s/p pacemaker, mitral insufficiency , asthma/COPD, GERD, esophageal dysmotility, dysphagia, reverse peristalsis, chronic anemia and B12 deficiency, and arthritis PAST SURGICAL HISTORY: Cardiac stent x2 Bilateral TKR w/ nara revisions Hysterectomy 27 yrs ago Social History: Smoking:denies Alcohol:denies Drugs: denies Family History: Allergies alcohol Allergy (Severe, Verified 07/02/18 17:57) Difficulty Breathing ciprofloxacin [From Cipro] Allergy (Severe, Verified 07/02/18 17:57) Difficulty Breathing ciprofloxacin HCl [From Cipro] Allergy (Severe, Verified 07/02/18 17:57) Difficulty Breathing erythromycin base [Erythromycin Base] Allergy (Severe, Verified 07/02/18 17:57) Difficulty Breathing metronidazole [From Flagyl] Allergy (Severe, Verified 07/02/18 17:57) Difficulty Breathing Metronidazole HCl [From Flagyl] Allergy (Severe, Verified 07/02/18 17:57) Difficulty Breathing Penicillins Allergy (Severe, Verified 07/02/18 17:57) Difficulty Breathing tetracycline [Tetracycline] Allergy (Severe, Verified 07/02/18 17:57) Difficulty Breathing adhesive Allergy (Verified 07/02/18 17:57) adhesive tape Allergy (Verified 07/02/18 17:57) clindamycin Allergy (Verified 07/02/18 17:57) codeine [Codeine] Allergy (Verified 07/02/18 17:57) isosorbide mononitrate [From Ismo] Allergy (Verified 07/02/18 17:57) meperidine HCl [From Demerol] Allergy (Verified 07/02/18 17:57) nisoldipine Allergy (Verified 07/02/18 17:57) povidone-iodine [From Betadine] Allergy (Verified 07/02/18 17:57) prochlorperazine edisylate [From Compazine] Allergy (Verified 07/02/18 17:57) prochlorperazine maleate [From Compazine] Allergy (Verified 07/02/18 17:57) soap [From Betadine] Allergy (Verified 07/02/18 17:57) EITHER Allergy (Unknown, Uncoded 07/02/18 17:57) HOME MEDICATIONS: Home Medications Medication Instructions Recorded Albuterol Sulfate Inhaler - 2 puff IH ASDIR 08/29/16 [Ventolin HFA Inhaler -] Ascorbate Calcium [Vitamin C] 500 mg PO DAILY 08/29/16 Cholecalciferol (Vitamin D3) 5,000 unit PO DAILY 08/29/16 [Vitamin D3] Docusate Sodium [Colace -] 200 mg PO 08/29/16 Fluticasone Prop 0.05% Nasal 1 spray NS DAILY 08/29/16 [Flonase -] Fluticasone Propionate [Flovent 100 mcg IH DAILY 08/29/16 Diskus] Folic Acid 1 mg PO DAILY 08/29/16 Furosemide [Lasix] 20 mg PO Q48H 08/29/16 Ipratropium [place] 15 ml NS BID 08/29/16 Metoprolol Succinate [Toprol XL -] 25 mg PO DAILY 08/29/16 Montelukast Na [Singulair -] 10 mg PO HS 08/29/16 Nitroglycerin Sublingual 0.4 mg SL ASDIR 08/29/16 [Nitrostat -] Ondansetron HCl [Zofran] 4 mg PO DAILY 08/29/16 Oxycodone HCl/Acetaminophen 1 tab PO Q4H PRN 08/29/16 [Percocet 5-325 mg Tablet] Pantoprazole Sodium [Protonix] 40 mg PO DAILY 08/29/16 Ranolazine [Ranexa] 500 mg PO BID 08/29/16 Rosuvastatin Calcium [Crestor] 40 mg PO DAILY 08/29/16 Sennosides [Senna] 8.6 mg PO HS 10/27/16 Acetaminophen [8Hr Arthritis Pain 650 mg PO QID PRN 07/02/18 Relief] Albuterol 2.5/Ipratropium 0.5 1 amp NEB BID 07/02/18 [Duoneb -] Apixaban [Eliquis] 5 mg PO DAILY 07/02/18 Ferrous Sulfate 325 mg PO DAILY 07/02/18 Furosemide [Lasix] 40 mg PO DAILY 07/02/18 Guaifenesin/Pseudoephedrne HCl 1 each PO BID 07/02/18 [Mucinex D ER 600-60 mg Tablet] Hydrocortisone 2.5% Topical Cr 1 applic RC BID 07/02/18 [Anusol 2.5% Hc Cream -] Multivit-Min/Iron Fum/Folic AC 1 each PO DAILY 07/02/18 [Vyuhp-Kqxfrit-Meqgwbjn Tablet] Nitrofurantoin Monohyd/M-Cryst 100 mg PO BID 07/02/18 [Macrobid -] Ondansetron Injection [Zofran 4 mg IVPB Q8H 07/02/18 Injection] Propylene Glycol/Peg 400 [Systane 5 ml OP DAILY 07/02/18 0.3-0.4% Eye Drops] Sennosides [Senna] 8.6 mg PO DAILY 07/02/18 REVIEW OF SYSTEMS CONSTITUTIONAL: Absent: fever, chills, diaphoresis, generalized weakness, malaise, loss of appetite, weight change HEENT: Absent: rhinorrhea, nasal congestion, throat pain, throat swelling, difficulty swallowing, mouth swelling, ear pain, eye pain, visual changes CARDIOVASCULAR: Absent: chest pain, syncope, palpitations, irregular heart rate, lightheadedness , peripheral edema RESPIRATORY: Absent: cough, shortness of breath, dyspnea with exertion, orthopnea, wheezing, stridor, hemoptysis GASTROINTESTINAL: Absent: abdominal pain, abdominal distension, nausea, vomiting, diarrhea, constipation, melena, hematochezia GENITOURINARY: Absent: dysuria, frequency, urgency, hesitancy, hematuria, flank pain, genital pain MUSCULOSKELETAL: Absent: myalgia, arthralgia, joint swelling, back pain, neck pain SKIN: Absent: rash, itching, pallor HEMATOLOGIC/IMMUNOLOGIC: Absent: easy bleeding, easy bruising, lymphadenopathy, frequent infections ENDOCRINE: Absent: unexplained weight gain, unexplained weight loss, heat intolerance, cold intolerance NEUROLOGIC: numbness in Absent: headache, focal weakness or paresthesias, dizziness, unsteady gait, seizure, mental status changes, bladder or bowel incontinence PSYCHIATRIC: Absent: anxiety, depression, suicidal or homicidal ideation, hallucinations. PHYSICAL EXAMINATION Vital Signs - 24 hr 07/02/18 07/02/18 17:58 19:08 Temperature 97.9 F Pulse Rate 73 Respiratory 18 Rate Blood Pressure 127/72 O2 Sat by Pulse 97 96 Oximetry (%) GENERAL: Awake, alert, and fully oriented, in no acute distress. HEAD: Normal with no signs of trauma. EYES: Pupils equal, round and reactive to light, extraocular movements intact, sclera anicteric, conjunctiva clear. No lid lag. EARS, NOSE, THROAT: Ears normal, nares patent, oropharynx clear without exudates. Moist mucous membranes. NECK: Normal range of motion, supple without lymphadenopathy, JVD, or masses. LUNGS: Breath sounds equal, clear to auscultation bilaterally. No wheezes, and no crackles. No accessory muscle use. HEART: Regular rate and rhythm, normal S1 and S2 without murmur, rub or gallop. ABDOMEN: Soft, nontender, not distended, normoactive bowel sounds, no guarding, no rebound, no masses. No hepatomegaly or splenomegaly. MUSCULOSKELETAL: Normal range of motion at all joints. No bony deformities or tenderness. No CVA tenderness. UPPER EXTREMITIES: 2+ pulses, warm, well-perfused. No cyanosis. No clubbing. No peripheral edema. LOWER EXTREMITIES: + edema, bilaterally, 2+ pulses, warm, well-perfused. No calf tenderness. NEUROLOGICAL: Cranial nerves II-XII intact. Normal speech. Normal gait. PSYCHIATRIC: Cooperative. Good eye contact. Appropriate mood and affect. SKIN: Warm, dry, normal turgor, no rashes or lesions noted, normal capillary refill. Laboratory Results - last 24 hr 07/02/18 07/02/18 07/02/18 18:35 18:35 18:35 WBC 5.6 RBC 2.73 L Hgb 9.7 L Hct 29.2 L D MCV 106.9 H MCH 35.5 H MCHC 33.2 RDW 14.0 D Plt Count 189 D MPV 7.2 L Absolute Neuts (auto) 4.2 Neutrophils % 75.9 D Lymphocytes % 14.0 D Monocytes % 8.0 Eosinophils % 1.4 Basophils % 0.7 Nucleated RBC % 0 Macrocytosis 1+ PT with INR 16.80 H INR 1.42 H PTT (Actin FS) 33.6 Sodium 140 Potassium 4.3 Chloride 105 Carbon Dioxide 27 Anion Gap 9 BUN 21 H Creatinine 1.1 Creat Clearance w eGFR 46.98 Random Glucose 109 H Lactic Acid Calcium 8.2 L Total Bilirubin 0.3 AST 23 ALT 15 Alkaline Phosphatase 44 L Creatine Kinase 69 Troponin I 0.03 Total Protein 6.2 L Albumin 3.2 L Urine Color Urine Appearance Urine pH Ur Specific [place] Urine Protein Urine Glucose (UA) Urine Ketones Urine Blood Urine Nitrite Urine Bilirubin Urine Urobilinogen Ur Leukocyte Esterase Urine WBC (Auto) Urine RBC (Auto) Urine Casts (Auto) U Epithel Cells (Auto) Urine Bacteria (Auto) Blood Type Antibody Screen 07/02/18 07/02/18 07/02/18 18:35 18:35 20:39 WBC RBC Hgb Hct MCV MCH MCHC RDW Plt Count MPV Absolute Neuts (auto) Neutrophils % Lymphocytes % Monocytes % Eosinophils % Basophils % Nucleated RBC % Macrocytosis PT with INR INR PTT (Actin FS) Sodium Potassium Chloride Carbon Dioxide Anion Gap BUN Creatinine Creat Clearance w eGFR Random Glucose Lactic Acid 1.2 Calcium Total Bilirubin AST ALT Alkaline Phosphatase Creatine Kinase Troponin I Total Protein Albumin Urine Color Yellow Urine Appearance Clear Urine pH 5.0 Ur Specific [place] 1.011 Urine Protein Negative Urine Glucose (UA) Negative Urine Ketones Negative Urine Blood 2+ H Urine Nitrite Negative Urine Bilirubin Negative Urine Urobilinogen 0.2 Ur Leukocyte Esterase 1+ H Urine WBC (Auto) 9 Urine RBC (Auto) 254 Urine Casts (Auto) 2 U Epithel Cells (Auto) 0.4 Urine Bacteria (Auto) 0.8 Blood Type A POSITIVE Antibody Screen Negative ASSESSMENT/PLAN: Angel Torrez is a 88 yr old F, a-fib on Eliquis, CAD s/p [place], CHF, HTN, HLD, s/ p pacemaker, mitral insufficiency, asthma/COPD, GERD, esophageal dysmotility, dysphagia, reverse peristalsis, chronic anemia and B12 deficiency, and arthritis admitted under observation Admitting Diagnosis AMS, Syncope UTI w/hematuria Chronic Problems Afib CAD s/p [place] CHF HTN HLD Asthma/COPD GERD Anemia, chronic A/P: #AMS-resolved #Syncope likely vasovagal -Tele monitoring -CT head no acute findings -carotid doppler ordered -Cardio consult- will have Day time verify cardio -blood, urine cx pending #UTI w/hematuria -eliquis on hold -pt with multiple allergies -urine cx pending -ID consult for appropriate abt #Afib,chronic #HTN #HLD #CAD s/p [place] #CHF -on lasix, -on BB, -eliquis on hold #Asthma #COPD -on duonebs, flovent, singulair -oxygen NC #GERD -on ppi #Anemia,chronic #Vit b12 def -on ferrous sulfate, folic acid -monitor Hg Dispo: requires inpatient treatment Visit type - Emergency Visit Emergency Visit: Yes ED Registration Date: 07/02/18 Care time: The patient presented to the Emergency Department on the above date and was hospitalized for further evaluation of their emergent condition. - New Patient This patient is new to me today: Yes Date on this admission: 07/02/18 - Critical Care Critical Care patient: No
[2018-07-03] MEDS: ALBUTEROL SO4 2.5/IPRATROPIUM 0.5 INH SOL 3 ML VIAL.NEB. NEB SCH ×2 (10:15→20:54)
[2018-07-03] MEDS: metoPROLOL SUCCINATE 25 MG TAB.SR.24H (FP) PO SCH (10:48)
[2018-07-03] MEDS: RANOLAZINE E.R. 500 MG TABLET (FP) PO SCH ×2 (10:48→21:43)
[2018-07-03] MEDS: FERROUS SO4 325 MG TABLET (FP) PO SCH (10:49)
[2018-07-03] MEDS: ASCORBIC ACID 500 MG TABLET (FP) PO SCH (10:49)
[2018-07-03] MEDS: FOLIC ACID 1 MG TABLET (FP) PO SCH (10:49)
[2018-07-03] MEDS: PANTOPRAZOLE 40 MG TABLET (FP) PO SCH (10:49)
[2018-07-03] MEDS: MULTIVITAMINS (DAILY MVI) TABLET (FP) PO SCH (10:49)
[2018-07-03] MEDS: FLUTICASONE PROP 0.05% 16 GM NASAL SPRAY NS SCH (10:53)
[2018-07-03 13:59] LABS: HEMATOCRIT 29.8 % (32.4-45.2); HEMOGLOBIN 9.6 GM/dL (10.7-15.3); MCH 34.3 pg (25.7-33.7); MCHC 32.3 g/dl (32.0-36.0); MEAN PLT VOLUME 7.6 fl (7.5-11.1); PLATELET COUNT 202 K/MM3 (134-434); RBC 2.81 M/mm3 (3.60-5.2); RDW 13.8 % (11.6-15.6); WHITE BLOOD COUNT 4.4 K/mm3 (4.0-10.0)
--- NOTE | 2018-07-03 14:10 | CON.ID ---
Consult - History of Present Illness History of Present Illness: 88 y.o. female with PMH of CAD s/p NC / CABG/stents, CHF, s/p PPM, AFIB, HTN, GERD, COPD, HTN and HLD sent in from [facility] due to sudden AMS/decreased responsiveness. Pt reported to be in normal state of health, conversive and fully responsive prior to this. No reported fever/chills, headache/focal deficits, cough, chest pain, abd pain/n/v/d. In the ER pt was afebrile, without acute distress. Labs/imaging noted. No specific abnormalities found other than on U/A which showed +LE and blood. Pt currently alert and fully responsive does state that she developed urinary frequency and hematuria 2 wks ago for UTI and received about a 5 day course of po antibiotics (name unknown). Her hematuria has persisted but denies recent dysuria. She remains afebrile and states she feels better. 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: Other (depression) Cardio/Vascular: Yes: AFIB, CAD, CHF, HTN, Hyperlipdemia, NC, Mitral Insufficiency, Other (Atrial septal defect, intermittent palpitations, status post acute inferior wall myocardial infarction) Pulmonary: Yes: Asthma, COPD, Other (intrinsic bronchial asthma) Gastrointestinal: Yes: GERD, Other (esophageal dysmotility disorder with tertiary contractions, retention and reversed peristalsis, intermittent nausea and vomiting, history of ischemic colitis, s/p Chase fundoplasty, s/p H Pylori infection and gastritis, s/p cholecystectomy, appendectomy, intermittent mid and right lumbar abdominal pain, s/p ventral hernia repair,) Hepatobiliary: Yes: Cholelithiasis, Cholecystitis Infectious Disease: Yes: MRSA (left knee, acute) Psych: Yes: Depression Musculoskeletal: Yes: Chronic low back pain, Osteoarthritis, Other (s/ TKR x2, 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, left shoulder pain related to osteoarthritis) Rheumatology: Yes: Rheumatoid Arthritis ENT: Yes: Allergic Rhinitis Endocrine: Yes: Hypothyroidism, Osteopenia - Past Surgical History Past Surgical History: Yes: Appendectomy, Cataract Removal, Cholecystectomy, Hernia Repair, Joint Replacement, Permanent Pacemaker, Stent, Tonsillectomy - Alcohol/Substance Use Hx Alcohol Use: No History of Substance Use: reports: None - Smoking History Smoking history: Never smoked Have you smoked in the past 12 months: No Aproximately how many cigarettes per day: 0 - Social History ADL: Support Services History of Recent Travel: No Home Medications - Allergies Allergies/Adverse Reactions: Allergies Allergy/AdvReac Type Severity Reaction Status Date / Time alcohol Allergy Severe Difficulty Verified 07/02/18 17:57 Breathing ciprofloxacin [From Cipro] Allergy Severe Difficulty Verified 07/02/18 17:57 Breathing ciprofloxacin HCl Allergy Severe Difficulty Verified 07/02/18 17:57 [From Cipro] Breathing erythromycin base Allergy Severe Difficulty Verified 07/02/18 17:57 [Erythromycin Base] Breathing metronidazole [From Flagyl] Allergy Severe Difficulty Verified 07/02/18 17:57 Breathing Metronidazole HCl Allergy Severe Difficulty Verified 07/02/18 17:57 [From Flagyl] Breathing Penicillins Allergy Severe Difficulty Verified 07/02/18 17:57 Breathing tetracycline [Tetracycline] Allergy Severe Difficulty Verified 07/02/18 17:57 Breathing adhesive Allergy Verified 07/02/18 17:57 adhesive tape Allergy Verified 07/02/18 17:57 clindamycin Allergy Verified 07/02/18 17:57 codeine [Codeine] Allergy Verified 07/02/18 17:57 isosorbide mononitrate Allergy Verified 07/02/18 17:57 [From Ismo] meperidine HCl [From Demerol] Allergy Verified 07/02/18 17:57 nisoldipine Allergy Verified 07/02/18 17:57 povidone-iodine Allergy Verified 07/02/18 17:57 [From Betadine] prochlorperazine edisylate Allergy Verified 07/02/18 17:57 [From Compazine] prochlorperazine maleate Allergy Verified 07/02/18 17:57 [From Compazine] soap [From Betadine] Allergy Verified 07/02/18 17:57 EITHER Allergy Unknown Uncoded 07/02/18 17:57 - Home Medications Home Medications: Ambulatory Orders Albuterol Sulfate Inhaler - [Ventolin HFA Inhaler -] 2 puff IH ASDIR 08/29/16 Ascorbate Calcium [Vitamin C] 500 mg PO DAILY 08/29/16 Cholecalciferol (Vitamin D3) [Vitamin D3] 5,000 unit PO DAILY 08/29/16 Docusate Sodium [Colace -] 200 mg PO HS 08/29/16 Fluticasone Prop 0.05% Nasal [Flonase -] 1 spray NS DAILY 08/29/16 Fluticasone Propionate [Flovent Diskus] 100 mcg IH DAILY 08/29/16 Folic Acid 1 mg PO DAILY 08/29/16 Furosemide [Lasix] 20 mg PO Q48H 08/29/16 Ipratropium [place] 15 ml NS BID 08/29/16 Metoprolol Succinate [Toprol XL -] 25 mg PO DAILY 08/29/16 Montelukast Na [Singulair -] 10 mg PO HS 08/29/16 Nitroglycerin Sublingual [Nitrostat -] 0.4 mg SL ASDIR 08/29/16 Ondansetron HCl [Zofran] 4 mg PO DAILY 08/29/16 Oxycodone HCl/Acetaminophen [Percocet 5-325 mg Tablet] 1 tab PO Q4H PRN Pantoprazole Sodium [Protonix] 40 mg PO DAILY 08/29/16 Ranolazine [Ranexa] 500 mg PO BID 08/29/16 Rosuvastatin Calcium [Crestor] 40 mg PO DAILY 08/29/16 Sennosides [Senna] 8.6 mg PO HS 10/27/16 Acetaminophen [8Hr Arthritis Pain Relief] 650 mg PO QID PRN 07/02/18 Albuterol 2.5/Ipratropium 0.5 [Duoneb -] 1 amp NEB BID 07/02/18 Apixaban [Eliquis] 5 mg PO DAILY 07/02/18 Ferrous Sulfate 325 mg PO DAILY 07/02/18 Furosemide [Lasix] 40 mg PO DAILY 07/02/18 Guaifenesin/Pseudoephedrne HCl [Mucinex D ER 600-60 mg Tablet] 1 each PO BID Hydrocortisone 2.5% Topical Cr [Anusol 2.5% Hc Cream -] 1 applic RC BID Multivit-Min/Iron Fum/Folic AC [Cfpxb-Mihdglu-Hztryvvb Tablet] 1 each PO DAILY 07/02/18 Nitrofurantoin Monohyd/M-Cryst [Macrobid -] 100 mg PO BID 07/02/18 Ondansetron Injection [Zofran Injection] 4 mg IVPB Q8H 07/02/18 Propylene Glycol/Peg 400 [Systane 0.3-0.4% Eye Drops] 5 ml OP DAILY 07/02/18 Sennosides [Senna] 8.6 mg PO DAILY 07/02/18 Family Disease History - Family Disease History Family Disease History: Heart Disease: Mother (breast, ovarian), Brother, [place]: Father (lung,), Mother Review of Systems - Review of Systems Constitutional: reports: No Symptoms Eyes: reports: No Symptoms HENT: reports: No Symptoms Neck: reports: No Symptoms Cardiovascular: reports: No Symptoms Respiratory: reports: No Symptoms Gastrointestinal: reports: No Symptoms Genitourinary: reports: Hematuria Musculoskeletal: reports: No Symptoms Integumentary: reports: No Symptoms Neurological: reports: No Symptoms Endocrine: reports: No Symptoms Hematology/Lymphatic: reports: No Symptoms Psychiatric: reports: No Symptoms Physical Exam Vital Signs: Vital Signs Temperature 98.0 F 07/03/18 10:00 Pulse Rate 65 07/03/18 10:00 Respiratory Rate 18 07/03/18 10:00 Blood Pressure 110/66 07/03/18 10:00 O2 Sat by Pulse Oximetry (%) 100 07/03/18 07:00 Constitutional: Yes: No Distress, Calm Eyes: Yes: Conjunctiva Clear, EOM Intact HENT: Yes: Atraumatic, Normocephalic Neck: Yes: Supple, Trachea Midline Cardiovascular: Yes: Other (paced) Respiratory: Yes: CTA Bilaterally Gastrointestinal: Yes: Normal Bowel Sounds, Soft, Tenderness (mild, nonspecific in RLQ with deep palp, no guarding/no rigidity) Renal/: Yes: Other (in diaper) Musculoskeletal: Yes: WNL Extremities: Yes: WNL Edema: No Peripheral Pulses WNL: Yes Integumentary: Yes: WNL Neurological: Yes: Alert, Oriented Psychiatric: Yes: Alert Labs: Laboratory Tests 07/02/18 07/02/18 07/02/18 18:35 18:35 18:35 WBC 5.6 RBC 2.73 L Hgb 9.7 L Hct 29.2 L D MCV 106.9 H MCH 35.5 H MCHC 33.2 RDW 14.0 D Plt Count 189 D MPV 7.2 L Absolute Neuts (auto) 4.2 Neutrophils % 75.9 D Lymphocytes % 14.0 D Monocytes % 8.0 Eosinophils % 1.4 Basophils % 0.7 Nucleated RBC % 0 Macrocytosis 1+ PT with INR 16.80 H INR 1.42 H PTT (Actin FS) 33.6 Sodium 140 Potassium 4.3 Chloride 105 Carbon Dioxide 27 Anion Gap 9 BUN 21 H Creatinine 1.1 Creat Clearance w eGFR 46.98 Random Glucose 109 H Lactic Acid Calcium 8.2 L Total Bilirubin 0.3 AST 23 ALT 15 Alkaline Phosphatase 44 L Creatine Kinase 69 Troponin I 0.03 Total Protein 6.2 L Albumin 3.2 L Urine Color Urine Appearance Urine pH Ur Specific [place] Urine Protein Urine Glucose (UA) Urine Ketones Urine Blood Urine Nitrite Urine Bilirubin Urine Urobilinogen Ur Leukocyte Esterase Urine WBC (Auto) Urine RBC (Auto) Urine Casts (Auto) U Epithel Cells (Auto) Urine Bacteria (Auto) Blood Type Antibody Screen 07/02/18 07/02/18 07/02/18 18:35 18:35 20:39 WBC RBC Hgb Hct MCV MCH MCHC RDW Plt Count MPV Absolute Neuts (auto) Neutrophils % Lymphocytes % Monocytes % Eosinophils % Basophils % Nucleated RBC % Macrocytosis PT with INR INR PTT (Actin FS) Sodium Potassium Chloride Carbon Dioxide Anion Gap BUN Creatinine Creat Clearance w eGFR Random Glucose Lactic Acid 1.2 Calcium Total Bilirubin AST ALT Alkaline Phosphatase Creatine Kinase Troponin I Total Protein Albumin Urine Color Yellow Urine Appearance Clear Urine pH 5.0 Ur Specific [place] 1.011 Urine Protein Negative Urine Glucose (UA) Negative Urine Ketones Negative Urine Blood 2+ H Urine Nitrite Negative Urine Bilirubin Negative Urine Urobilinogen 0.2 Ur Leukocyte Esterase 1+ H Urine WBC (Auto) 9 Urine RBC (Auto) 254 Urine Casts (Auto) 2 U Epithel Cells (Auto) 0.4 Urine Bacteria (Auto) 0.8 Blood Type A POSITIVE Antibody Screen Negative 07/03/18 12:00 WBC 4.4 RBC 2.81 L Hgb 9.6 L Hct 29.8 L MCV 106.0 H MCH 34.3 H MCHC 32.3 RDW 13.8 Plt Count 202 MPV 7.6 Absolute Neuts (auto) Neutrophils % Lymphocytes % Monocytes % Eosinophils % Basophils % Nucleated RBC % Macrocytosis PT with INR INR PTT (Actin FS) Sodium Potassium Chloride Carbon Dioxide Anion Gap BUN Creatinine Creat Clearance w eGFR Random Glucose Lactic Acid Calcium Total Bilirubin AST ALT Alkaline Phosphatase Creatine Kinase Troponin I Total Protein Albumin Urine Color Urine Appearance Urine pH Ur Specific [place] Urine Protein Urine Glucose (UA) Urine Ketones Urine Blood Urine Nitrite Urine Bilirubin Urine Urobilinogen Ur Leukocyte Esterase Urine WBC (Auto) Urine RBC (Auto) Urine Casts (Auto) U Epithel Cells (Auto) Urine Bacteria (Auto) Blood Type Antibody Screen Imaging - Results Chest X-ray: Report Reviewed Cat Scan: Report Reviewed Problem List - Problems (1) Altered mental status Code(s): R41.82 - ALTERED MENTAL STATUS, UNSPECIFIED Qualifiers: Altered mental status type: unspecified Qualified Code(s): R41.82 - Altered mental status, unspecified (2) Syncope Code(s): R55 - SYNCOPE AND COLLAPSE Qualifiers: Syncope type: unspecified Qualified Code(s): R55 - Syncope and collapse (3) Iron deficiency anemia Code(s): D50.9 - IRON DEFICIENCY ANEMIA, UNSPECIFIED Assessment/Plan 88 y.o. female with PMH of CAD s/p NC / CABG/stents, CHF, s/p PPM, AFIB, HTN, GERD, COPD, HTN and HLD sent in from [facility] due to sudden AMS/decreased responsiveness. AMS Recent UTI Persistent Hematuria CAD s/p NC CHF s/p PPM AFIB COPD HTN HLD -- Pt with numerous antibiotic allergies including PCN -- For now start Aztreonam empirically -- follow up Urine and Blood cultures -- Pt is currently alert, responsive, afebrile continue monitor Will follow Thank you
--- NOTE | 2018-07-03 14:30 | PN ---
Progress Note, Physician History of Present Illness: Sr Angel Torrez is an 88yo woman with a PMH of a-fib on Eliquis, CAD s/p [place], CHF, HTN, HLD, s/p pacemaker, mitral insufficiency, asthma/COPD, GERD, esophageal dysmotility, dysphagia, reverse peristalsis, chronic anemia and B12 deficiency, and arthritis, pt from [facility], pt seen in ED, pt alert,oriented x3, pt reports having blood in urine for past 3-4 days, bright red blood, pt went to bathroom around 4pm, was getting up from toilet and was not able to feel her fingers, pt was able to pull the cord for help, pt was not able to communicate to nurse. pt brought to ED for evaluation. pt was started on Macrobid for [place]TI in [place],patient stated that she has an episode of bloody vomit yesterday that is why she came to the hospital, it is unclear, since the patient never stated in the day of her admission she had any bleeding. - Current Medication List Current Medications: Active Medications Albuterol/Ipratropium (Duoneb -) 1 amp NEB RBID [facility] Last Admin: 07/03/18 10:15 Dose: 1 amp Ascorbic Acid (Vitamin C -) 500 mg PO DAILY [facility] Last Admin: 07/03/18 10:49 Dose: 500 mg Docusate Sodium (Colace -) [address] [facility] Ferrous Sulfate (Feosol -) 325 mg PO DAILY [facility] Last Admin: 07/03/18 10:49 Dose: 325 mg Fluticasone Propionate (Flonase -) 1 spray NS DAILY [facility] Last Admin: 07/03/18 10:53 Dose: 4 sprays Folic Acid (Folic Acid -) 1 mg PO DAILY [facility] Last Admin: 07/03/18 10:49 Dose: 1 mg Furosemide (Lasix -) 20 mg PO Q2D@1000 [facility] Aztreonam 0.5 gm/ Dextrose 50 mls @ 100 mls/hr IVPB Q12H [facility]; Protocol Metoprolol Succinate (Toprol Xl -) 25 mg PO DAILY [facility] Last Admin: 07/03/18 10:48 Dose: 25 mg Mometasone Furoate (Asmanex 220mcg -) [address] [facility] Montelukast Sodium (Singulair -) [address] [facility] Multivitamins/Minerals/Vitamin C (Tab-A-Vit -) 1 tab PO DAILY [facility] Last Admin: 07/03/18 10:49 Dose: 1 tab Pantoprazole Sodium (Protonix -) 40 mg PO DAILY [facility] Last Admin: 07/03/18 10:49 Dose: 40 mg Ranolazine (Ranexa -) 500 mg PO BID [facility] Last Admin: 07/03/18 10:48 Dose: 500 mg Rosuvastatin Calcium (Crestor -) [address] [facility] Senna (Senna -) 1 tab PO HS [facility] - Objective Vital Signs: Vital Signs Temperature 98.0 F 07/03/18 10:00 Pulse Rate 65 07/03/18 10:00 Respiratory Rate 18 07/03/18 10:00 Blood Pressure 110/66 07/03/18 10:00 O2 Sat by Pulse Oximetry (%) 100 07/03/18 07:00 Constitutional: Yes: Well Nourished, No Distress, Calm Eyes: Yes: WNL, Conjunctiva Clear, EOM Intact HENT: Yes: WNL, Atraumatic, Normocephalic Neck: Yes: WNL, Supple, Trachea Midline Cardiovascular: Yes: WNL, Regular Rate and Rhythm Respiratory: Yes: WNL, Regular, CTA Bilaterally Gastrointestinal: Yes: WNL, Normal Bowel Sounds, Soft Musculoskeletal: Yes: WNL Extremities: Yes: WNL Edema: No Integumentary: Yes: WNL Neurological: Yes: WNL, Alert, Oriented ...Motor Strength: WNL Psychiatric: Yes: WNL, Alert, Oriented Labs: CBC, BMP 07/03/18 12:00 INR, PTT INR 1.42 (0.83-1.09) H 07/02/18 18:35 Assessment/Plan #AMS-resolved - patient is AAOX3 #Syncope likely vasovagal -Tele monitoring -CT head no acute findings -carotid doppler ordered -Cardio consult- will have Day time verify cardio -blood, urine cx pending #UTI w/hematuria -eliquis on hold -pt with multiple allergies -urine cx pending -f/u with ID recommendation #Afib,chronic - will hold off AC due to the bleeding #HTN - stable #HLD - c/w statin #CAD s/p [place] #CHF - not in acute decomepnsated state -c/w BB, -apixiban on hold due to bleeding #COPD -on duonebs, flovent, singulair -oxygen NC #GERD -on ppi #Anemia,chronic - 2/2 blood loss #Vit b12 def -on ferrous sulfate, folic acid -monitor H/H
[2018-07-03 14:37] LABS: ALBUMIN 3.2 g/dl (3.4-5.0); ALK PHOS 45 U/L (45-117); ANION GAP 7 MMOL/L (8-16); BILIRUBIN,TOTAL 0.4 mg/dL (0.2-1); BLOOD UREA NITROGEN 17 mg/dL (7-18); CALCIUM 8.3 mg/dL (8.5-10.1); CHLORIDE 104 mmol/L (98-107); CO2 28 mmol/L (21-32); GLUCOSE,RANDOM 87 mg/dL (74-106); POTASSIUM 4.1 mmol/L (3.5-5.1); SGOT/AST 21 U/L (15-37); SGPT/ALT 14 U/L (13-61); SODIUM 139 mmol/L (136-145); TOT PROT 5.9 g/dl (6.4-8.2)
[2018-07-03] MEDS: AZTREONAM 0.5 GM in DEXTROSE 5%-WATER - 50 ML IVPB SCH ×2 (16:59→21:44)
[2018-07-03] MEDS ORDERED: PT OWN MED DRAWER 7, Y5N ONE (20:36)
[2018-07-03] MEDS: ROSUVASTATIN CA 20 MG TABLET (FP) PO SCH (21:43)
[2018-07-03] MEDS: MOMETASONE FUROATE 220 MCG/IH INHALER IH SCH (21:44)
[2018-07-03] MEDS: MONTELUKAST NA 10 MG TABLET PO SCH (21:44)
[2018-07-03] MEDS: SENNOSIDES 8.6MG TABLET (FP) PO SCH (21:44)
[2018-07-03] MEDS: DOCUSATE SODIUM 100 MG CAPSULE (FP) PO SCH (21:44)
[2018-07-03] MEDS ORDERED: ACETAMINOPHEN 325 MG TABLET (FP) PO ONE (21:50)
--- NOTE | 2018-07-04 06:53 | PDOC ---
Attending Attestation - Resident Resident Name: ZeferinodorianMercedez - ED Attending Attestation I have performed the following: I have examined & evaluated the patient, The case was reviewed & discussed with the resident, I agree w/resident's findings & plan, Exceptions are as noted - HPI HPI: 07/04/18 06:52 Reviewed Residents HPI - Physicial Exam PE: 07/04/18 06:52 Reviewed Residents PE - Medical Decision Making 07/04/18 06:52 88 y.o. female with PMH of CAD s/p [place] / CABG/stents, CHF, s/p PPM, AFIB, HTN, GERD, COPD, HTN and HLD sent in from [facility] due to sudden AMS/decreased responsiveness. Patient seen immediately upon arrival to emergency department lethargic minimally responsive breathing without difficulty with trying to pain in all extremities no indication for code Hobbs activation given global nature of patient's altered mental status and no focal deficits. Noted Sepsis workup initiated including head CT Reevaluation patient now back to baseline mental status with no intervention History and exam and at this time consistent with syncope and collapse Given past medical history benign deficiency anemia we'll observe overnight on telemetry for further evaluation of syncope.
[2018-07-04 07:47] LABS: BASO % 0.6 % (0-2.0); EOS % 3.1 % (0-4.5); HEMATOCRIT 28.7 % (32.4-45.2); HEMOGLOBIN 9.4 GM/dL (10.7-15.3); LYMPH % 29.6 % (8-40); MCH 35.1 pg (25.7-33.7); MEAN CELL VOLUME 106.3 fl (80-96); MEAN PLT VOLUME 7.3 fl (7.5-11.1); MONO % 9.2 % (3.8-10.2); NEUT % 57.5 % (42.8-82.8); PLATELET COUNT 200 K/MM3 (134-434); RBC 2.69 M/mm3 (3.60-5.2); RDW 13.8 % (11.6-15.6); WHITE BLOOD COUNT 3.7 K/mm3 (4.0-10.0)
[2018-07-04 08:34] LABS: ALBUMIN 2.9 g/dl (3.4-5.0); ALK PHOS 41 U/L (45-117); ANION GAP 3 MMOL/L (8-16); BILIRUBIN,TOTAL 0.3 mg/dL (0.2-1); BLOOD UREA NITROGEN 17 mg/dL (7-18); CALCIUM 8.7 mg/dL (8.5-10.1); CHLORIDE 108 mmol/L (98-107); CO2 29 mmol/L (21-32); GLUCOSE,RANDOM 89 mg/dL (74-106); POTASSIUM 4.2 mmol/L (3.5-5.1); SGOT/AST 19 U/L (15-37); SGPT/ALT 12 U/L (13-61); SODIUM 140 mmol/L (136-145); TOT PROT 5.7 g/dl (6.4-8.2)
[2018-07-04] MEDS: ALBUTEROL SO4 2.5/IPRATROPIUM 0.5 INH SOL 3 ML VIAL.NEB. NEB SCH ×2 (08:36→20:23)
[2018-07-04] MEDS: AZTREONAM 0.5 GM in DEXTROSE 5%-WATER - 50 ML IVPB SCH (09:52)
[2018-07-04] MEDS: MULTIVITAMINS (DAILY MVI) TABLET (FP) PO SCH (09:54)
[2018-07-04] MEDS: RANOLAZINE E.R. 500 MG TABLET (FP) PO SCH ×2 (09:54→21:59)
[2018-07-04] MEDS: PANTOPRAZOLE 40 MG TABLET (FP) PO SCH (09:54)
[2018-07-04] MEDS: FOLIC ACID 1 MG TABLET (FP) PO SCH (09:54)
[2018-07-04] MEDS: metoPROLOL SUCCINATE 25 MG TAB.SR.24H (FP) PO SCH (09:54)
[2018-07-04] MEDS: ASCORBIC ACID 500 MG TABLET (FP) PO SCH (09:54)
[2018-07-04] MEDS: FERROUS SO4 325 MG TABLET (FP) PO SCH (09:54)
[2018-07-04] MEDS: FUROSEMIDE 20 MG TABLET (FP) PO SCH (09:54)
[2018-07-04] MEDS: FLUTICASONE PROP 0.05% 16 GM NASAL SPRAY NS SCH (09:55)
--- NOTE | 2018-07-04 11:23 | PN ---
Progress Note, Physician History of Present Illness: patient states she is doing well, she didnt vomit any blood, she stated that she has frequent bloody urine H/h stable - Current Medication List Current Medications: Active Medications Albuterol/Ipratropium (Duoneb -) 1 amp NEB RBID [facility] Last Admin: 07/04/18 08:36 Dose: 1 amp Ascorbic Acid (Vitamin C -) 500 mg PO DAILY [facility] Last Admin: 07/04/18 09:54 Dose: 500 mg Docusate Sodium (Colace -) 200 mg PO [facility] Last Admin: 07/03/18 21:44 Dose: 200 mg Ferrous Sulfate (Feosol -) 325 mg PO DAILY [facility] Last Admin: 07/04/18 09:54 Dose: 325 mg Fluticasone Propionate (Flonase -) 1 spray NS DAILY [facility] Last Admin: 07/04/18 09:55 Dose: 1 sprays Folic Acid (Folic Acid -) 1 mg PO DAILY [facility] Last Admin: 07/04/18 09:54 Dose: 1 mg Furosemide (Lasix -) 20 mg PO Q2D@1000 [facility] Last Admin: 07/04/18 09:54 Dose: 20 mg Aztreonam 0.5 gm/ Dextrose 50 mls @ 100 mls/hr IVPB BID [facility]; Protocol Last Admin: 07/04/18 09:52 Dose: 100 mls/hr Metoprolol Succinate (Toprol Xl -) 25 mg PO DAILY [facility] Last Admin: 07/04/18 09:54 Dose: 25 mg Mometasone Furoate (Asmanex 220mcg -) 1 puff IH [facility] Last Admin: 07/03/18 21:44 Dose: 1 puff Montelukast Sodium (Singulair -) 10 mg PO [facility] Last Admin: 07/03/18 21:44 Dose: 10 mg Multivitamins/Minerals/Vitamin C (Tab-A-Vit -) 1 tab PO DAILY [facility] Last Admin: 07/04/18 09:54 Dose: 1 tab Pantoprazole Sodium (Protonix -) 40 mg PO DAILY [facility] Last Admin: 07/04/18 09:54 Dose: 40 mg Ranolazine (Ranexa -) 500 mg PO BID [facility] Last Admin: 07/04/18 09:54 Dose: 500 mg Rosuvastatin Calcium (Crestor -) 40 mg PO [facility] Last Admin: 07/03/18 21:43 Dose: 40 mg Senna (Senna -) 1 tab PO HS [facility] Last Admin: 07/03/18 21:44 Dose: 1 tab - Objective Vital Signs: Vital Signs Temperature 98.1 F 07/04/18 09:00 Pulse Rate 63 07/04/18 09:00 Respiratory Rate 18 07/04/18 10:33 Blood Pressure 126/54 L 07/04/18 09:00 O2 Sat by Pulse Oximetry (%) 100 07/04/18 10:33 Labs: CBC, BMP 07/04/18 05:30 07/04/18 05:30 INR, PTT INR 1.42 (0.83-1.09) H 07/02/18 18:35 Assessment/Plan #AMS-resolved - patient is AAOX3 #Syncope likely vasovagal -Tele monitoring -CT head no acute findings -carotid doppler ordered -Cardio consult- will have Day time verify cardio -blood, urine cx pending #UTI w/hematuria -eliquis on hold -pt with multiple allergies -urine cx pending -f/u with ID recommendation #Afib,chronic - will hold off AC due to the bleeding #HTN - stable #HLD - c/w statin #CAD s/p [place] #CHF - not in acute decomepnsated state -c/w BB, -apixiban on hold due to bleeding #COPD -on duonebs, flovent, singulair -oxygen [place] #GERD -on ppi #Anemia,chronic - 2/2 blood loss #Vit b12 def -on ferrous sulfate, folic acid -monitor H/H Hematemesis - one episode before she came denied any blood vomit or black stools - F/u with GI recommendations.
--- NOTE | 2018-07-04 13:50 | PN ---
Progress Note, Physician History of Present Illness: Pt remains alert, afebrile. No hemoptysis today, denies SOB but has dry cough with inhalation. Denies dysuria. - Current Medication List Current Medications: Active Medications Albuterol/Ipratropium (Duoneb -) 1 amp NEB RBID [facility] Last Admin: 07/04/18 08:36 Dose: 1 amp Ascorbic Acid (Vitamin C -) 500 mg PO DAILY [facility] Last Admin: 07/04/18 09:54 Dose: 500 mg Docusate Sodium (Colace -) 200 mg PO [facility] Last Admin: 07/03/18 21:44 Dose: 200 mg Ferrous Sulfate (Feosol -) 325 mg PO DAILY [facility] Last Admin: 07/04/18 09:54 Dose: 325 mg Fluticasone Propionate (Flonase -) 1 spray NS DAILY [facility] Last Admin: 07/04/18 09:55 Dose: 1 sprays Folic Acid (Folic Acid -) 1 mg PO DAILY [facility] Last Admin: 07/04/18 09:54 Dose: 1 mg Furosemide (Lasix -) 20 mg PO Q2D@1000 [facility] Last Admin: 07/04/18 09:54 Dose: 20 mg Aztreonam 0.5 gm/ Dextrose 50 mls @ 100 mls/hr IVPB BID [facility]; Protocol Last Admin: 07/04/18 09:52 Dose: 100 mls/hr Metoprolol Succinate (Toprol Xl -) 25 mg PO DAILY [facility] Last Admin: 07/04/18 09:54 Dose: 25 mg Mometasone Furoate (Asmanex 220mcg -) 1 puff IH [facility] Last Admin: 07/03/18 21:44 Dose: 1 puff Montelukast Sodium (Singulair -) 10 mg PO [facility] Last Admin: 07/03/18 21:44 Dose: 10 mg Multivitamins/Minerals/Vitamin C (Tab-A-Vit -) 1 tab PO DAILY [facility] Last Admin: 07/04/18 09:54 Dose: 1 tab Pantoprazole Sodium (Protonix -) 40 mg PO DAILY [facility] Last Admin: 07/04/18 09:54 Dose: 40 mg Ranolazine (Ranexa -) 500 mg PO BID [facility] Last Admin: 07/04/18 09:54 Dose: 500 mg Rosuvastatin Calcium (Crestor -) 40 mg PO [facility] Last Admin: 07/03/18 21:43 Dose: 40 mg Senna (Senna -) 1 tab PO HS [facility] Last Admin: 07/03/18 21:44 Dose: 1 tab - Objective Vital Signs: Vital Signs Temperature 98.1 F 07/04/18 09:00 Pulse Rate 63 07/04/18 09:00 Respiratory Rate 18 07/04/18 10:33 Blood Pressure 126/54 L 07/04/18 09:00 O2 Sat by Pulse Oximetry (%) 100 07/04/18 10:33 Constitutional: Yes: No Distress, Calm Cardiovascular: Yes: Other (paced) Respiratory: Yes: CTA Bilaterally Gastrointestinal: Yes: Normal Bowel Sounds, Soft Musculoskeletal: Yes: WNL Extremities: Yes: WNL Integumentary: Yes: WNL Neurological: Yes: Alert Labs: CBC, BMP 07/04/18 05:30 07/04/18 05:30 INR, PTT INR 1.42 (0.83-1.09) H 07/02/18 18:35 Microbiology 07/02/18 20:39 Urine - Urine - Catheterized Urine Culture - Final NO GROWTH OBTAINED 07/02/18 18:35 Blood - Peripheral Venous Blood Culture - Preliminary NO GROWTH OBTAINED AFTER 24 HOURS, INCUBATION TO CONTINUE FOR 4 DAYS. 07/02/18 18:35 Blood - Peripheral Venous Blood Culture - Preliminary NO GROWTH OBTAINED AFTER 24 HOURS, INCUBATION TO CONTINUE FOR 4 DAYS. - ....Imaging Chest X-ray: Report Reviewed Problem List - Problems (1) Altered mental status Code(s): R41.82 - ALTERED MENTAL STATUS, UNSPECIFIED Qualifiers: Altered mental status type: unspecified Qualified Code(s): R41.82 - Altered mental status, unspecified (2) Syncope Code(s): R55 - SYNCOPE AND COLLAPSE Qualifiers: Syncope type: unspecified Qualified Code(s): R55 - Syncope and collapse (3) Iron deficiency anemia Code(s): D50.9 - IRON DEFICIENCY ANEMIA, UNSPECIFIED Assessment/Plan 88 y.o. female with PMH of CAD s/p [place] / CABG/stents, CHF, s/p PPM, AFIB, HTN, GERD, COPD, HTN and HLD sent in from [facility] due to sudden AMS/decreased responsiveness, persistent hematuria and hemoptysis AMS - resolved Recent UTI s/p recent course of Macrobid Persistent Hematuria Hemoptysis - none today CAD s/p [place] CHF s/p PPM AFIB COPD HTN HLD -- will d/c antibiotics -- Urine/Blood cultures negative , wbc normal, afebrile -- dry cough with deep inhalation, CXR without infiltrates -- anticoagulant on hold, Hgb stable -- Pt is currently alert, responsive Continue monitor
--- NOTE | 2018-07-04 14:26 | CON.GI ---
Consult Consult Specialty:: GI--coverage for Dr Alexandra - History of Present Illness History of Present Illness: 88 y.o. female with history of [place] diverticulum, chronic anemia CAD s/p [place] / CABG/stents, CHF, s/p PPM, AFIB, HTN, GERD, COPD, HTN and HLD sent in from [facility] due to sudden AMS/decreased responsiveness, persistent hematuria and hemoptysis She denies nausea, vomitng, dysphgai. She is constipated - Past Medical History [employer]: Yes: Other (depression) Cardio/Vascular: Yes: AFIB, CAD, CHF, HTN, Hyperlipdemia, CO, Mitral Insufficiency, Other (Atrial septal defect, intermittent palpitations, status post acute inferior wall myocardial infarction) Pulmonary: Yes: Asthma, COPD, Other (intrinsic bronchial asthma) Gastrointestinal: Yes: GERD, Other (esophageal dysmotility disorder with tertiary contractions, retention and reversed peristalsis, intermittent nausea and vomiting, history of ischemic colitis, s/p Chase fundoplasty, s/p H Pylori infection and gastritis, s/p cholecystectomy, appendectomy, intermittent mid and right lumbar abdominal pain, s/p ventral hernia repair,) Hepatobiliary: Yes: Cholelithiasis, Cholecystitis Infectious Disease: Yes: MRSA (left knee, acute) Psych: Yes: Depression Musculoskeletal: Yes: Chronic low back pain, Osteoarthritis, Other (s/ TKR x2, 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, left shoulder pain related to osteoarthritis) Rheumatology: Yes: Rheumatoid Arthritis ENT: Yes: Allergic Rhinitis Endocrine: Yes: Hypothyroidism, Osteopenia - Past Surgical History Past Surgical History: Yes: Appendectomy, Cataract Removal, Cholecystectomy, Hernia Repair, Joint Replacement, Permanent Pacemaker, Stent, Tonsillectomy - Alcohol/Substance Use Hx Alcohol Use: No History of Substance Use: reports: None - Smoking History Smoking history: Never smoked Have you smoked in the past 12 months: No Aproximately how many cigarettes per day: 0 - Social History ADL: Support Services History of Recent Travel: No Home Medications - Allergies Allergies/Adverse Reactions: Allergies Allergy/AdvReac Type Severity Reaction Status Date / Time alcohol Allergy Severe Difficulty Verified 07/02/18 17:57 Breathing ciprofloxacin [From Cipro] Allergy Severe Difficulty Verified 07/02/18 17:57 Breathing ciprofloxacin HCl Allergy Severe Difficulty Verified 07/02/18 17:57 [From Cipro] Breathing erythromycin base Allergy Severe Difficulty Verified 07/02/18 17:57 [Erythromycin Base] Breathing metronidazole [From Flagyl] Allergy Severe Difficulty Verified 07/02/18 17:57 Breathing Metronidazole HCl Allergy Severe Difficulty Verified 07/02/18 17:57 [From Flagyl] Breathing Penicillins Allergy Severe Difficulty Verified 07/02/18 17:57 Breathing tetracycline [Tetracycline] Allergy Severe Difficulty Verified 07/02/18 17:57 Breathing adhesive Allergy Verified 07/02/18 17:57 adhesive tape Allergy Verified 07/02/18 17:57 clindamycin Allergy Verified 07/02/18 17:57 codeine [Codeine] Allergy Verified 07/02/18 17:57 isosorbide mononitrate Allergy Verified 07/02/18 17:57 [From Ismo] meperidine HCl [From Demerol] Allergy Verified 07/02/18 17:57 nisoldipine Allergy Verified 07/02/18 17:57 povidone-iodine Allergy Verified 07/02/18 17:57 [From Betadine] prochlorperazine edisylate Allergy Verified 07/02/18 17:57 [From Compazine] prochlorperazine maleate Allergy Verified 07/02/18 17:57 [From Compazine] soap [From Betadine] Allergy Verified 07/02/18 17:57 EITHER Allergy Unknown Uncoded 07/02/18 17:57 - Home Medications Home Medications: Ambulatory Orders Albuterol Sulfate Inhaler - [Ventolin HFA Inhaler -] 2 puff IH [facility] 08/29/16 Ascorbate Calcium [Vitamin C] 500 mg PO DAILY 08/29/16 Cholecalciferol (Vitamin D3) [Vitamin D3] 5,000 unit PO DAILY 08/29/16 Docusate Sodium [Colace -] 200 mg PO HS 08/29/16 Fluticasone Prop 0.05% Nasal [Flonase -] 1 spray NS DAILY 08/29/16 Fluticasone Propionate [Flovent Diskus] 100 mcg IH DAILY 08/29/16 Folic Acid 1 mg PO DAILY 08/29/16 Furosemide [Lasix] 20 mg PO Q48H 08/29/16 Ipratropium [facility] 15 ml NS BID 08/29/16 Metoprolol Succinate [Toprol XL -] 25 mg PO DAILY 08/29/16 Montelukast Na [Singulair -] 10 mg PO HS 08/29/16 Nitroglycerin Sublingual [Nitrostat -] 0.4 mg SL [facility] 08/29/16 Ondansetron HCl [Zofran] 4 mg PO DAILY 08/29/16 Oxycodone HCl/Acetaminophen [Percocet 5-325 mg Tablet] 1 tab PO Q4H PRN Pantoprazole Sodium [Protonix] 40 mg PO DAILY 08/29/16 Ranolazine [Ranexa] 500 mg PO BID 08/29/16 Rosuvastatin Calcium [Crestor] 40 mg PO DAILY 08/29/16 Sennosides [Senna] 8.6 mg PO HS 10/27/16 Acetaminophen [8Hr Arthritis Pain Relief] 650 mg PO QID PRN 07/02/18 Albuterol 2.5/Ipratropium 0.5 [Duoneb -] 1 amp NEB BID 07/02/18 Apixaban [Eliquis] 5 mg PO DAILY 07/02/18 Ferrous Sulfate 325 mg PO DAILY 07/02/18 Furosemide [Lasix] 40 mg PO DAILY 07/02/18 Guaifenesin/Pseudoephedrne HCl [Mucinex D ER 600-60 mg Tablet] 1 each PO BID Hydrocortisone 2.5% Topical Cr [Anusol 2.5% Hc Cream -] 1 applic RC BID Multivit-Min/Iron Fum/Folic AC [Bgtwx-Mrbndzf-Zouudqwf Tablet] 1 each PO DAILY 07/02/18 Nitrofurantoin Monohyd/M-Cryst [Macrobid -] 100 mg PO BID 07/02/18 Ondansetron Injection [Zofran Injection] 4 mg IVPB Q8H 07/02/18 Propylene Glycol/Peg 400 [Systane 0.3-0.4% Eye Drops] 5 ml OP DAILY 07/02/18 Sennosides [Senna] 8.6 mg PO DAILY 07/02/18 Family Disease History - Family Disease History Family Disease History: Heart Disease: Mother (breast, ovarian), Brother, [place]: Father (lung,), Mother Physical Exam-GI Vital Signs: Vital Signs Temperature 98.1 F 07/04/18 09:00 Pulse Rate 63 07/04/18 09:00 Respiratory Rate 18 07/04/18 10:33 Blood Pressure 126/54 L 07/04/18 09:00 O2 Sat by Pulse Oximetry (%) 100 07/04/18 10:33 Constitutional: Yes: Well Nourished Eyes: Yes: Conjunctiva Clear, Occular Prosthesis Neck: Yes: Supple Cardiovascular: Yes: Regular Rate and Rhythm Respiratory: Yes: CTA Bilaterally ...Palpate: Yes: Soft. No: Firm/Rigid, Guarding, Hepatomegaly, Mass, Pulsatile Mass, Splenomegaly, Tenderness Labs: CBC, BMP 07/04/18 05:30 07/04/18 05:30 INR, PTT INR 1.42 (0.83-1.09) H 07/02/18 18:35 Current Medications Generic Name Dose Route Start Last Admin Trade Name Freq PRN Reason Stop Dose Admin Albuterol/Ipratropium 1 amp 07/03/18 08:00 07/04/18 08:36 Duoneb - NEB 1 amp RBID [facility] Administration Ascorbic Acid 500 mg 07/03/18 10:00 07/04/18 09:54 Vitamin C - PO 500 mg DAILY [facility] Administration Docusate Sodium 200 mg 07/03/18 22:00 07/03/18 21:44 Colace - PO 200 mg HS [facility] Administration Ferrous Sulfate 325 mg 07/03/18 10:00 07/04/18 09:54 Feosol - PO 325 mg DAILY [facility] Administration Fluticasone Propionate 1 spray 07/03/18 10:00 07/04/18 09:55 Flonase - NS 1 sprays DAILY [facility] Administration Folic Acid 1 mg 07/03/18 10:00 07/04/18 09:54 Folic Acid - PO 1 mg DAILY [facility] Administration Furosemide 20 mg 07/04/18 10:00 07/04/18 09:54 Lasix - PO 20 mg Q2D@1000 [facility] Administration Metoprolol Succinate 25 mg 07/03/18 10:00 07/04/18 09:54 Toprol Xl - PO 25 mg DAILY [facility] Administration Mometasone Furoate 1 puff 07/03/18 22:00 07/03/18 21:44 Asmanex 220mcg - IH 1 puff HS [facility] Administration Montelukast Sodium 10 mg 07/03/18 22:00 07/03/18 21:44 Singulair - PO 10 mg HS [facility] Administration Multivitamins/Minerals/Vitamin C 1 tab 07/03/18 10:00 07/04/18 09:54 Tab-A-Vit - PO 1 tab DAILY [facility] Administration Pantoprazole Sodium 40 mg 07/03/18 10:00 07/04/18 09:54 Protonix - PO 40 mg DAILY [facility] Administration Ranolazine 500 mg 07/03/18 10:00 07/04/18 09:54 Ranexa - PO 500 mg BID [facility] Administration Rosuvastatin Calcium 40 mg 07/03/18 22:00 07/03/18 21:43 Crestor - PO 40 mg HS [facility] Administration Senna 1 tab 07/03/18 22:00 07/03/18 21:44 Senna - PO 1 tab HS [facility] Administration Home Medications Medication Instructions Recorded Albuterol Sulfate Inhaler - 2 puff ASDIR 08/29/16 [Ventolin HFA Inhaler -] Ascorbate Calcium [Vitamin C] 500 mg PO DAILY 08/29/16 Cholecalciferol (Vitamin D3) 5,000 unit PO DAILY 08/29/16 [Vitamin D3] Docusate Sodium [Colace -] 200 mg PO HS 08/29/16 Fluticasone Prop 0.05% Nasal 1 spray NS DAILY 08/29/16 [Flonase -] Fluticasone Propionate [Flovent 100 mcg IH DAILY 08/29/16 Diskus] Folic Acid 1 mg PO DAILY 08/29/16 Furosemide [Lasix] 20 mg PO Q48H 08/29/16 Ipratropium Dowell 15 ml NS BID 08/29/16 Metoprolol Succinate [Toprol XL -] 25 mg PO DAILY 08/29/16 Montelukast Na [Singulair -] 10 mg PO HS 08/29/16 Nitroglycerin Sublingual 0.4 mg SL ASDIR 08/29/16 [Nitrostat -] Ondansetron HCl [Zofran] 4 mg PO DAILY 08/29/16 Oxycodone HCl/Acetaminophen 1 tab PO Q4H PRN 08/29/16 [Percocet 5-325 mg Tablet] Pantoprazole Sodium [Protonix] 40 mg PO DAILY 08/29/16 Ranolazine [Ranexa] 500 mg PO BID 08/29/16 Rosuvastatin Calcium [Crestor] 40 mg PO DAILY 08/29/16 Sennosides [Senna] 8.6 mg PO HS 10/27/16 Acetaminophen [8Hr Arthritis Pain 650 mg PO QID PRN 07/02/18 Relief] Albuterol 2.5/Ipratropium 0.5 1 amp NEB BID 07/02/18 [Duoneb -] Apixaban [Eliquis] 5 mg PO DAILY 07/02/18 Ferrous Sulfate 325 mg PO DAILY 07/02/18 Furosemide [Lasix] 40 mg PO DAILY 07/02/18 Guaifenesin/Pseudoephedrne HCl 1 each PO BID 07/02/18 [Mucinex D ER 600-60 mg Tablet] Hydrocortisone 2.5% Topical Cr 1 applic RC BID 07/02/18 [Anusol 2.5% Hc Cream -] Multivit-Min/Iron Fum/Folic AC 1 each PO DAILY 07/02/18 [Nxwji-Qiwliui-Woxhsost Tablet] Nitrofurantoin Monohyd/M-Cryst 100 mg PO BID 07/02/18 [Macrobid -] Ondansetron Injection [Zofran 4 mg IVPB Q8H 07/02/18 Injection] Propylene Glycol/Peg 400 [Systane 5 ml OP DAILY 07/02/18 0.3-0.4% Eye Drops] Sennosides [Senna] 8.6 mg PO DAILY 07/02/18 Problem List - Problems (1) Macrocytic anemia Assessment/Plan: associated with hematuria and hemoptysis R> stool guaiac od x3 Dr Alexandra will resume coverage tomorrow Code(s): D53.9 - NUTRITIONAL ANEMIA, UNSPECIFIED
[2018-07-04] MEDS: MOMETASONE FUROATE 220 MCG/IH INHALER IH SCH (21:57)
[2018-07-04] MEDS: DOCUSATE SODIUM 100 MG CAPSULE (FP) PO SCH (21:58)
[2018-07-04] MEDS: ROSUVASTATIN CA 20 MG TABLET (FP) PO SCH (21:59)
[2018-07-04] MEDS: SENNOSIDES 8.6MG TABLET (FP) PO SCH (21:59)
[2018-07-04] MEDS: MONTELUKAST NA 10 MG TABLET PO SCH (21:59)
[2018-07-05 06:49] LABS: BASO % 0.6 % (0-2.0); EOS % 3.2 % (0-4.5); HEMATOCRIT 29.2 % (32.4-45.2); HEMOGLOBIN 9.8 GM/dL (10.7-15.3); LYMPH % 24.6 % (8-40); MCH 35.4 pg (25.7-33.7); MCHC 33.4 g/dl (32.0-36.0); MEAN CELL VOLUME 105.9 fl (80-96); MEAN PLT VOLUME 7.4 fl (7.5-11.1); MONO % 9.3 % (3.8-10.2); NEUT % 62.3 % (42.8-82.8); PLATELET COUNT 201 K/MM3 (134-434); RBC 2.76 M/mm3 (3.60-5.2); RDW 14.2 % (11.6-15.6); WHITE BLOOD COUNT 4.7 K/mm3 (4.0-10.0)
[2018-07-05 07:17] LABS: ALBUMIN 2.8 g/dl (3.4-5.0); ALK PHOS 41 U/L (45-117); ANION GAP 6 MMOL/L (8-16); BILIRUBIN,TOTAL 0.3 mg/dL (0.2-1); BLOOD UREA NITROGEN 16 mg/dL (7-18); CALCIUM 8.4 mg/dL (8.5-10.1); CHLORIDE 108 mmol/L (98-107); CO2 30 mmol/L (21-32); GLUCOSE,RANDOM 83 mg/dL (74-106); SGOT/AST 24 U/L (15-37); SGPT/ALT 13 U/L (13-61); SODIUM 144 mmol/L (136-145); TOT PROT 5.6 g/dl (6.4-8.2)
[2018-07-05] MEDS: ALBUTEROL SO4 2.5/IPRATROPIUM 0.5 INH SOL 3 ML VIAL.NEB. NEB SCH ×2 (07:37→20:20)
--- NOTE | 2018-07-05 07:54 | PN ---
Progress Note, Physician Chief Complaint: 88 y.o F was admitted from [facility] after an episode of syncope. Hospitalist coverage appreciated. History of Present Illness: Zenkers diverticulum. GERD. Hemorrhoids. 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 CAD s/p [place] / CABG/stents, CHF, s/p PPM, AFIB on Eliquis, HTN, HLD COPD, B/L TKR HAYLEE - Current Medication List Current Medications: Active Medications Albuterol/Ipratropium (Duoneb -) 1 amp NEB RBID [facility] Last Admin: 07/05/18 07:37 Dose: 1 amp Ascorbic Acid (Vitamin C -) 500 mg PO DAILY [facility] Last Admin: 07/04/18 09:54 Dose: 500 mg Docusate Sodium (Colace -) 200 mg PO [facility] Last Admin: 07/04/18 21:58 Dose: 200 mg Ferrous Sulfate (Feosol -) 325 mg PO DAILY [facility] Last Admin: 07/04/18 09:54 Dose: 325 mg Fluticasone Propionate (Flonase -) 1 spray NS DAILY [facility] Last Admin: 07/04/18 09:55 Dose: 1 sprays Folic Acid (Folic Acid -) 1 mg PO DAILY [facility] Last Admin: 07/04/18 09:54 Dose: 1 mg Furosemide (Lasix -) 20 mg PO Q2D@1000 [facility] Last Admin: 07/04/18 09:54 Dose: 20 mg Metoprolol Succinate (Toprol Xl -) 25 mg PO DAILY [facility] Last Admin: 07/04/18 09:54 Dose: 25 mg Mometasone Furoate (Asmanex 220mcg -) 1 puff IH [facility] Last Admin: 07/04/18 21:57 Dose: 1 puff Montelukast Sodium (Singulair -) 10 mg PO [facility] Last Admin: 07/04/18 21:59 Dose: 10 mg Multivitamins/Minerals/Vitamin C (Tab-A-Vit -) 1 tab PO DAILY [facility] Last Admin: 07/04/18 09:54 Dose: 1 tab Pantoprazole Sodium (Protonix -) 40 mg PO DAILY [facility] Last Admin: 07/04/18 09:54 Dose: 40 mg Ranolazine (Ranexa -) 500 mg PO BID [facility] Last Admin: 07/04/18 21:59 Dose: 500 mg Rosuvastatin Calcium (Crestor -) 40 mg PO [facility] Last Admin: 07/04/18 21:59 Dose: 40 mg Senna (Senna -) 1 tab PO [facility] Last Admin: 07/04/18 21:59 Dose: 1 tab - Objective Vital Signs: Vital Signs Temperature 98.2 F 07/05/18 06:00 Pulse Rate 79 07/05/18 06:00 Respiratory Rate 20 07/05/18 06:00 Blood Pressure 136/66 07/05/18 06:00 O2 Sat by Pulse Oximetry (%) 100 07/04/18 20:48 Constitutional: Yes: No Distress, Anxious, Pallor, Thin HENT: Yes: Atraumatic, Normocephalic. No: Drooling Neck: Yes: Supple, Trachea Midline. No: Decreased ROM, Lymphadenopathy Cardiovascular: Yes: Regular Rate and Rhythm, S1, S2, Other (PPM) Respiratory: Yes: Regular, CTA Bilaterally Gastrointestinal: Yes: Normal Bowel Sounds, Soft. No: Ascites, Palpable Mass, Tenderness ...Rectal Exam: Yes: Deferred Genitourinary: No: Anuria, Bladder Distention, CVA Tenderness - Right Breast(s): Yes: WNL Musculoskeletal: Yes: Other (B/L TKR) Extremities: No: Calf Tenderness, Cold, Cyanosis, Delayed Capillary Refill Edema: No Peripheral Pulses WNL: No Integumentary: Yes: WNL Neurological: Yes: Alert. No: Aphasia, Dysarthria ...Motor Strength: WNL Psychiatric: Yes: Alert, Oriented. No: Agitated, Suicidal Ideation Labs: CBC, BMP 07/05/18 06:30 07/05/18 06:30 INR, PTT INR 1.42 (0.83-1.09) H 07/02/18 18:35 Problem List - Problems (1) Macrocytic anemia Assessment/Plan: H/H remain stable, GI consult is pending Seen by Dr Solares over the weekend. Anemia w/u-pending to r/o iron deficiency, B12 deficiency Code(s): D53.9 - NUTRITIONAL ANEMIA, UNSPECIFIED (2) Syncope Assessment/Plan: Probably vasovagal and autonomic disfunction No arrhythmias on telemetry, no pauses. Code(s): R55 - SYNCOPE AND COLLAPSE Qualifiers: Syncope type: unspecified Qualified Code(s): R55 - Syncope and collapse (3) Cardiac arrhythmia Assessment/Plan: A.Fib in a patient with a pacemaker. Will restart Eliquis 2.5 mg BID when cleared BY GI. Code(s): I49.9 - CARDIAC ARRHYTHMIA, UNSPECIFIED Qualifiers: Arrhythmia type: atrial fibrillation
[2018-07-05] MEDS: PANTOPRAZOLE 40 MG TABLET (FP) PO SCH (09:44)
[2018-07-05] MEDS: FERROUS SO4 325 MG TABLET (FP) PO SCH (09:44)
[2018-07-05] MEDS: ASCORBIC ACID 500 MG TABLET (FP) PO SCH (09:44)
[2018-07-05] MEDS: FOLIC ACID 1 MG TABLET (FP) PO SCH (09:44)
[2018-07-05] MEDS: MULTIVITAMINS (DAILY MVI) TABLET (FP) PO SCH (09:44)
[2018-07-05] MEDS: RANOLAZINE E.R. 500 MG TABLET (FP) PO SCH ×2 (09:44→22:11)
[2018-07-05] MEDS: metoPROLOL SUCCINATE 25 MG TAB.SR.24H (FP) PO SCH (09:44)
[2018-07-05] MEDS: FLUTICASONE PROP 0.05% 16 GM NASAL SPRAY NS SCH (09:46)
--- NOTE | 2018-07-05 10:27 | EKG ---
Test Reason : Blood Pressure : / mmHG Vent. Rate : 063 BPM Atrial Rate : 066 BPM P-R Int : 000 ms QRS Dur : 178 ms QT Int : 520 ms P-R-T Axes : 000 -73 112 degrees QTc Int : 532 ms Ventricular-paced rhythm ABNORMAL ECG WHEN COMPARED WITH ECG OF 29-AUG-2016 18:06, PREMATURE VENTRICULAR COMPLEXES ARE NO LONGER PRESENT VENT. RATE HAS DECREASED BY 22 BPM Confirmed by DAVIS ACHARYA, AMEENA ([id number]) on 07/05/2018 10:27:13 AM Referred By: Confirmed By:AMEENA CANNON MD
--- NOTE | 2018-07-05 14:48 | PN ---
Progress Note, Physician - Current Medication List Current Medications: Active Medications Albuterol/Ipratropium (Duoneb -) 1 amp NEB RBID [facility] Last Admin: 07/05/18 07:37 Dose: 1 amp Ascorbic Acid (Vitamin C -) 500 mg PO DAILY [facility] Last Admin: 07/05/18 09:44 Dose: 500 mg Docusate Sodium (Colace -) 200 mg PO [facility] Last Admin: 07/04/18 21:58 Dose: 200 mg Ferrous Sulfate (Feosol -) 325 mg PO DAILY [facility] Last Admin: 07/05/18 09:44 Dose: 325 mg Fluticasone Propionate (Flonase -) 1 spray NS DAILY [facility] Last Admin: 07/05/18 09:46 Dose: 1 sprays Folic Acid (Folic Acid -) 1 mg PO DAILY [facility] Last Admin: 07/05/18 09:44 Dose: 1 mg Furosemide (Lasix -) 20 mg PO Q2D@1000 [facility] Last Admin: 07/04/18 09:54 Dose: 20 mg Metoprolol Succinate (Toprol Xl -) 25 mg PO DAILY [facility] Last Admin: 07/05/18 09:44 Dose: 25 mg Mometasone Furoate (Asmanex 220mcg -) 1 puff IH [facility] Last Admin: 07/04/18 21:57 Dose: 1 puff Montelukast Sodium (Singulair -) 10 mg PO [facility] Last Admin: 07/04/18 21:59 Dose: 10 mg Multivitamins/Minerals/Vitamin C (Tab-A-Vit -) 1 tab PO DAILY [facility] Last Admin: 07/05/18 09:44 Dose: 1 tab Pantoprazole Sodium (Protonix -) 40 mg PO DAILY [facility] Last Admin: 07/05/18 09:44 Dose: 40 mg Ranolazine (Ranexa -) 500 mg PO BID [facility] Last Admin: 07/05/18 09:44 Dose: 500 mg Rosuvastatin Calcium (Crestor -) 40 mg PO [facility] Last Admin: 07/04/18 21:59 Dose: 40 mg Senna (Senna -) 1 tab PO HS [facility] Last Admin: 07/04/18 21:59 Dose: 1 tab - Objective Vital Signs: Vital Signs Temperature 98.4 F 07/05/18 14:00 Pulse Rate 68 07/05/18 14:00 Respiratory Rate 20 07/05/18 14:00 Blood Pressure 118/61 07/05/18 14:00 O2 Sat by Pulse Oximetry (%) 100 07/05/18 08:18 Labs: CBC, BMP 07/05/18 06:30 07/05/18 06:30 INR, PTT INR 1.42 (0.83-1.09) H 07/02/18 18:35
[2018-07-05] MEDS: DOCUSATE SODIUM 100 MG CAPSULE (FP) PO SCH (22:11)
[2018-07-05] MEDS: ROSUVASTATIN CA 20 MG TABLET (FP) PO SCH (22:11)
[2018-07-05] MEDS: MOMETASONE FUROATE 220 MCG/IH INHALER IH SCH (22:11)
[2018-07-05] MEDS: MONTELUKAST NA 10 MG TABLET PO SCH (22:11)
[2018-07-05] MEDS: SENNOSIDES 8.6MG TABLET (FP) PO SCH (22:12)
[2018-07-05] MEDS ORDERED: oxyCODONE HCL 5 MG TABLET PO ONE (23:00)
[2018-07-05] MEDS ORDERED: ACETAMINOPHEN 325 MG TABLET (FP) PO ONE (23:00)
[2018-07-06 04:11] LABS: SERUM IRON SATURATION 35 % (15-55); TOTAL IRON BINDING CAPACITY 169 ug/dL (250-450); UIBC 110 ug/dL (118-369)
[2018-07-06] MEDS: ALBUTEROL SO4 2.5/IPRATROPIUM 0.5 INH SOL 3 ML VIAL.NEB. NEB SCH (08:40)
[2018-07-06] MEDS: ASCORBIC ACID 500 MG TABLET (FP) PO SCH (09:45)
[2018-07-06] MEDS: FERROUS SO4 325 MG TABLET (FP) PO SCH (09:45)
[2018-07-06] MEDS: RANOLAZINE E.R. 500 MG TABLET (FP) PO SCH (09:45)
[2018-07-06] MEDS: FOLIC ACID 1 MG TABLET (FP) PO SCH (09:45)
[2018-07-06] MEDS: MULTIVITAMINS (DAILY MVI) TABLET (FP) PO SCH (09:45)
[2018-07-06] MEDS: PANTOPRAZOLE 40 MG TABLET (FP) PO SCH (09:45)
[2018-07-06] MEDS: metoPROLOL SUCCINATE 25 MG TAB.SR.24H (FP) PO SCH (09:45)
[2018-07-06] MEDS: FUROSEMIDE 20 MG TABLET (FP) PO SCH (09:46)
[2018-07-06] MEDS: FLUTICASONE PROP 0.05% 16 GM NASAL SPRAY NS SCH (09:49)
--- NOTE | 2018-07-06 12:26 | PN ---
Progress Note, Physician Chief Complaint: Feels well, no complaints. Blood, urine culture-no growth. History of Present Illness: Zenkers diverticulum. GERD. Hemorrhoids. 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 CAD s/p [place] / CABG/stents, CHF, s/p PPM, AFIB on Eliquis, HTN, HLD COPD, B/L TKR HAYLEE - Current Medication List Current Medications: Active Medications Albuterol/Ipratropium (Duoneb -) 1 amp NEB RBID [facility] Last Admin: 07/06/18 08:40 Dose: 1 amp Ascorbic Acid (Vitamin C -) 500 mg PO DAILY [facility] Last Admin: 07/06/18 09:45 Dose: 500 mg Docusate Sodium (Colace -) 200 mg PO [facility] Last Admin: 07/05/18 22:11 Dose: 200 mg Ferrous Sulfate (Feosol -) 325 mg PO DAILY [facility] Last Admin: 07/06/18 09:45 Dose: 325 mg Fluticasone Propionate (Flonase -) 1 spray NS DAILY [facility] Last Admin: 07/06/18 09:49 Dose: 1 sprays Folic Acid (Folic Acid -) 1 mg PO DAILY [facility] Last Admin: 07/06/18 09:45 Dose: 1 mg Furosemide (Lasix -) 20 mg PO Q2D@1000 [facility] Last Admin: 07/06/18 09:46 Dose: 20 mg Metoprolol Succinate (Toprol Xl -) 25 mg PO DAILY [facility] Last Admin: 07/06/18 09:45 Dose: 25 mg Mometasone Furoate (Asmanex 220mcg -) 1 puff IH [facility] Last Admin: 07/05/18 22:11 Dose: 1 puff Montelukast Sodium (Singulair -) 10 mg PO [facility] Last Admin: 07/05/18 22:11 Dose: 10 mg Multivitamins/Minerals/Vitamin C (Tab-A-Vit -) 1 tab PO DAILY [facility] Last Admin: 07/06/18 09:45 Dose: 1 tab Pantoprazole Sodium (Protonix -) 40 mg PO DAILY [facility] Last Admin: 07/06/18 09:45 Dose: 40 mg Ranolazine (Ranexa -) 500 mg PO BID [facility] Last Admin: 07/06/18 09:45 Dose: 500 mg Rosuvastatin Calcium (Crestor -) 40 mg PO HS [facility] Last Admin: 07/05/18 22:11 Dose: 40 mg Senna (Senna -) 1 tab PO [facility] Last Admin: 07/05/18 22:12 Dose: 1 tab - Objective Vital Signs: Vital Signs Temperature 97.6 F 07/06/18 10:00 Pulse Rate 63 07/06/18 10:00 Respiratory Rate 18 07/06/18 10:00 Blood Pressure 128/47 L 07/06/18 10:00 O2 Sat by Pulse Oximetry (%) 99 07/06/18 09:00 Constitutional: Yes: No Distress, Calm Eyes: Yes: Conjunctiva Clear, EOM Intact HENT: Yes: Atraumatic, Normocephalic Neck: Yes: Supple, Trachea Midline Cardiovascular: Yes: Regular Rate and Rhythm, JVD, Murmur, S1, S2, Other (PPM) Respiratory: Yes: Regular, CTA Bilaterally Gastrointestinal: Yes: Normal Bowel Sounds, Soft. No: Abdomen, Obese ...Rectal Exam: Yes: Deferred Genitourinary: No: Anuria, Bladder Distention, CVA Tenderness - Left, CVA Tenderness - Right Breast(s): Yes: WNL Musculoskeletal: Yes: WNL Extremities: No: Amputation, Calf Tenderness, Cold, Cyanosis Edema: No Peripheral Pulses WNL: No Neurological: Yes: Alert, Oriented. No: Aphasia, Dysarthria, Paresthesia ...Motor Strength: WNL Psychiatric: Yes: WNL Labs: CBC, BMP 07/05/18 06:30 07/05/18 06:30 INR, PTT INR 1.42 (0.83-1.09) H 07/02/18 18:35 Problem List - Problems (1) Macrocytic anemia Assessment/Plan: H/H remain stable, GI consult is pending Seen by Dr Solares over the weekend. Anemia w/u-pending to r/o iron deficiency, B12 deficiency Code(s): D53.9 - NUTRITIONAL ANEMIA, UNSPECIFIED (2) Syncope Assessment/Plan: Probably vasovagal and autonomic disfunction No arrhythmias on telemetry, no pauses. Code(s): R55 - SYNCOPE AND COLLAPSE Qualifiers: Syncope type: unspecified Qualified Code(s): R55 - Syncope and collapse (3) Cardiac arrhythmia Assessment/Plan: A.Fib in a patient with a pacemaker. Will restart Eliquis 2.5 mg BID Code(s): I49.9 - CARDIAC ARRHYTHMIA, UNSPECIFIED Qualifiers: Arrhythmia type: atrial fibrillation
--- NOTE | 2018-07-06 12:27 | DS ---
Physical Examination Vital Signs: Vital Signs Temperature 97.6 F 07/06/18 10:00 Pulse Rate 63 07/06/18 10:00 Respiratory Rate 18 07/06/18 10:00 Blood Pressure 128/47 L 07/06/18 10:00 O2 Sat by Pulse Oximetry (%) 99 07/06/18 09:00 Constitutional: Yes: No Distress, Calm, Pallor Eyes: Yes: Conjunctiva Clear, EOM Intact HENT: Yes: Atraumatic, Normocephalic. No: Drooling Neck: Yes: Supple, Trachea Midline Cardiovascular: Yes: Regular Rate and Rhythm, Other (PPM with A.Fib.) Respiratory: Yes: Regular, CTA Bilaterally Gastrointestinal: Yes: Normal Bowel Sounds, Soft ...Rectal Exam: Yes: Deferred Renal/: No: Anuria Musculoskeletal: No: Joint Stiffness, Joint Swelling, Muscle Pain Edema: No Peripheral Pulses WNL: Yes Integumentary: Yes: WNL Neurological: Yes: WNL ...Motor Strength: WNL Psychiatric: Yes: WNL Labs: CBC, BMP 07/05/18 06:30 07/05/18 06:30 Discharge Summary Reason For Visit: SYNCOPE,ALTERED MENTAL STATUS Current Active Problems Altered mental status (Acute) Macrocytic anemia (Acute) Syncope (Acute) - Instructions Disposition: CARE HOME FACILITY - Home Medications Comprehensive Discharge Medication List: Ambulatory Orders Albuterol Sulfate Inhaler - [Ventolin HFA Inhaler -] 2 puff IH ASDIR 08/29/16 Ascorbate Calcium [Vitamin C] 500 mg PO DAILY 08/29/16 Cholecalciferol (Vitamin D3) [Vitamin D3] 5,000 unit PO DAILY 08/29/16 Docusate Sodium [Colace -] 200 mg PO HS 08/29/16 Fluticasone Prop 0.05% Nasal [Flonase -] 1 spray NS DAILY 08/29/16 Fluticasone Propionate [Flovent Diskus] 100 mcg IH DAILY 08/29/16 Folic Acid 1 mg PO DAILY 08/29/16 Furosemide [Lasix] 20 mg PO Q48H 08/29/16 Ipratropium [place] 15 ml NS BID 08/29/16 Metoprolol Succinate [Toprol XL -] 25 mg PO DAILY 08/29/16 Montelukast Na [Singulair -] 10 mg PO HS 08/29/16 Nitroglycerin Sublingual [Nitrostat -] 0.4 mg SL ASDIR 08/29/16 Ondansetron HCl [Zofran] 4 mg PO DAILY 08/29/16 Oxycodone HCl/Acetaminophen [Percocet 5-325 mg Tablet] 1 tab PO Q4H PRN Pantoprazole Sodium [Protonix] 40 mg PO DAILY 08/29/16 Ranolazine [Ranexa] 500 mg PO BID 08/29/16 Rosuvastatin Calcium [Crestor] 40 mg PO DAILY 08/29/16 Sennosides [Senna] 8.6 mg PO HS 10/27/16 Acetaminophen [8Hr Arthritis Pain Relief] 650 mg PO QID PRN 07/02/18 Albuterol 2.5/Ipratropium 0.5 [Duoneb -] 1 amp NEB BID 07/02/18 Apixaban [Eliquis] 5 mg PO DAILY 07/02/18 Ferrous Sulfate 325 mg PO DAILY 07/02/18 Furosemide [Lasix] 40 mg PO DAILY 07/02/18 Guaifenesin/Pseudoephedrne HCl [Mucinex D ER 600-60 mg Tablet] 1 each PO BID Hydrocortisone 2.5% Topical Cr [Anusol 2.5% Hc Cream -] 1 applic RC BID Multivit-Min/Iron Fum/Folic AC [Uozee-Wwkefbe-Fvfqkvoi Tablet] 1 each PO DAILY 07/02/18 Nitrofurantoin Monohyd/M-Cryst [Macrobid -] 100 mg PO BID 07/02/18 Ondansetron Injection [Zofran Injection] 4 mg IVPB Q8H 07/02/18 Propylene Glycol/Peg 400 [Systane 0.3-0.4% Eye Drops] 5 ml OP DAILY 07/02/18 Sennosides [Senna] 8.6 mg PO DAILY 07/02/18
--- NOTE | 2018-07-06 14:08 | PN ---
Progress Note, Physician - Current Medication List Current Medications: Active Medications Albuterol/Ipratropium (Duoneb -) 1 amp NEB RBID [facility] Last Admin: 07/06/18 08:40 Dose: 1 amp Apixaban (Eliquis -) 2.5 mg PO BID [facility] Ascorbic Acid (Vitamin C -) 500 mg PO DAILY [facility] Last Admin: 07/06/18 09:45 Dose: 500 mg Docusate Sodium (Colace -) 200 mg PO [facility] Last Admin: 07/05/18 22:11 Dose: 200 mg Ferrous Sulfate (Feosol -) 325 mg PO DAILY [facility] Last Admin: 07/06/18 09:45 Dose: 325 mg Fluticasone Propionate (Flonase -) 1 spray NS DAILY [facility] Last Admin: 07/06/18 09:49 Dose: 1 sprays Folic Acid (Folic Acid -) 1 mg PO DAILY [facility] Last Admin: 07/06/18 09:45 Dose: 1 mg Furosemide (Lasix -) 20 mg PO Q2D@1000 [facility] Last Admin: 07/06/18 09:46 Dose: 20 mg Metoprolol Succinate (Toprol Xl -) 25 mg PO DAILY [facility] Last Admin: 07/06/18 09:45 Dose: 25 mg Mometasone Furoate (Asmanex 220mcg -) 1 puff IH [facility] Last Admin: 07/05/18 22:11 Dose: 1 puff Montelukast Sodium (Singulair -) 10 mg PO [facility] Last Admin: 07/05/18 22:11 Dose: 10 mg Multivitamins/Minerals/Vitamin C (Tab-A-Vit -) 1 tab PO DAILY [facility] Last Admin: 07/06/18 09:45 Dose: 1 tab Pantoprazole Sodium (Protonix -) 40 mg PO DAILY [facility] Last Admin: 07/06/18 09:45 Dose: 40 mg Ranolazine (Ranexa -) 500 mg PO BID [facility] Last Admin: 07/06/18 09:45 Dose: 500 mg Rosuvastatin Calcium (Crestor -) 40 mg PO [facility] Last Admin: 07/05/18 22:11 Dose: 40 mg Senna (Senna -) 1 tab PO [facility] Last Admin: 07/05/18 22:12 Dose: 1 tab - Objective Vital Signs: Vital Signs Temperature 97.6 F 07/06/18 10:00 Pulse Rate 63 07/06/18 10:00 Respiratory Rate 18 07/06/18 10:00 Blood Pressure 128/47 L 07/06/18 10:00 O2 Sat by Pulse Oximetry (%) 99 07/06/18 09:00 Labs: CBC, BMP 07/05/18 06:30 07/05/18 06:30 INR, PTT INR 1.42 (0.83-1.09) H 07/02/18 18:35
[2018-07-06 14:54] VITALS: BP 112/61; PULSE 73; TEMP 98.7
[2018-07-06] MEDS ORDERED: APIXABAN 2.5 MG TABLET PO SCH (22:00)
== END 2018-07-06 15:44 | DRG 812 ==
LOC: JER 17:52 → JERBED 20:48 → J4W 23:51 → OBSVTOIN 07-05 10:53
PROVIDERS: ADMIT Internal Medicine; ATTEND Internal Medicine
DX: D50.0 Iron deficiency anemia secondary to blood loss (chronic) (principal); N39.0 Urinary tract infection, site not specified; K92.0 Hematemesis; D53.9 Nutritional anemia, unspecified; R55 Syncope and collapse; I48.91 Unspecified atrial fibrillation; Z79.01 Long term (current) use of anticoagulants; I25.10 Atherosclerotic heart disease of native coronary artery without angina pectoris; I25.2 Old myocardial infarction; I11.0 Hypertensive heart disease with heart failure; I50.9 Heart failure, unspecified; E78.5 Hyperlipidemia, unspecified; J44.9 Chronic obstructive pulmonary disease, unspecified; K21.9 Gastro-esophageal reflux disease without esophagitis; E53.8 Deficiency of other specified B group vitamins; Z88.0 Allergy status to penicillin; R31.9 Hematuria, unspecified; I48.2 Chronic atrial fibrillation; Z95.1 Presence of aortocoronary bypass graft
CPT/HCPCS: 36415; 70450-TC; 71045-TC-FY; 80053; 81003; 82550; 82607; 82728; 82746; 83540; 83550; 83605; 83735; 84484; 85025; 85027; 85610; 85730; 86850; 86900; 86901; 87040; 87086; 93005; 93010; 93880-TC; 94640; 99285-25; G0378

== ENCOUNTER 2019-06-24 15:25 | Inpatient (IN) | payer OTHER ==
--- NOTE | 2019-06-24 15:39 | PDOC ---
History of Present Illness - General Chief Complaint: Vaginal Bleeding Stated Complaint: VAGINAL BLEED Time Seen by Provider: 06/24/19 15:38 History Source: Patient - History of Present Illness Initial Comments: 06/24/19 15:52 Sister Shan is an 89F w/hx afib on eliquis s/p pacemaker, CAD, HTN, HLD, CHF, mitral insufficiency, asthma, COPD, GERD, chronic anemia, arthritis p/w three weeks of vaginal bleeding worse over the last week. She denies any abdominal pain, weakness, confusion, chest pain, or sob. She endorses mild dysuria over the last week. She reports similar prior episode one year ago which required blood transfusion, and she denies any weakness or lightheadedness at that time. Surgical hx notable for total hysterectomy, bilateral masectomy for cancer. Past History - Past Medical History Allergies/Adverse Reactions: Allergies Allergy/AdvReac Type Severity Reaction Status Date / Time alcohol Allergy Severe Difficulty Verified 06/24/19 15:29 Breathing ciprofloxacin [From Cipro] Allergy Severe Difficulty Verified 06/24/19 15:29 Breathing ciprofloxacin HCl Allergy Severe Difficulty Verified 06/24/19 15:29 [From Cipro] Breathing erythromycin base Allergy Severe Difficulty Verified 06/24/19 15:29 [Erythromycin Base] Breathing metronidazole [From Flagyl] Allergy Severe Difficulty Verified 06/24/19 15:29 Breathing Metronidazole HCl Allergy Severe Difficulty Verified 06/24/19 15:29 [From Flagyl] Breathing Penicillins Allergy Severe Difficulty Verified 06/24/19 15:29 Breathing tetracycline [Tetracycline] Allergy Severe Difficulty Verified 06/24/19 15:29 Breathing adhesive Allergy Verified 06/24/19 15:29 adhesive tape Allergy Verified 06/24/19 15:29 clindamycin Allergy Verified 06/24/19 15:29 codeine [Codeine] Allergy Verified 06/24/19 15:29 isosorbide mononitrate Allergy Verified 06/24/19 15:29 [From Ismo] meperidine HCl [From Demerol] Allergy Verified 06/24/19 15:29 nisoldipine Allergy Verified 06/24/19 15:29 povidone-iodine Allergy Verified 06/24/19 15:29 [From Betadine] prochlorperazine edisylate Allergy Verified 06/24/19 15:29 [From Compazine] prochlorperazine maleate Allergy Verified 06/24/19 15:29 [From Compazine] soap [From Betadine] Allergy Verified 06/24/19 15:29 EITHER Allergy Unknown Uncoded 06/24/19 15:29 Home Medications: Ambulatory Orders Albuterol Sulfate Inhaler - [Ventolin HFA Inhaler -] 2 puff IH ASDIR PRN Ascorbate Calcium [Vitamin C] 500 mg PO DAILY 08/29/16 Cholecalciferol (Vitamin D3) [Vitamin D3] 5,000 unit PO DAILY 08/29/16 Docusate Sodium [Colace -] 200 mg PO HS 08/29/16 Fluticasone Prop 0.05% Nasal [Flonase -] 1 spray NS DAILY 08/29/16 Fluticasone Propionate [Flovent Diskus] 100 mcg IH DAILY 08/29/16 Folic Acid 1 mg PO DAILY 08/29/16 Furosemide [Lasix] 20 mg PO Q48H 08/29/16 Ipratropium [place] 15 ml NS BID 08/29/16 Metoprolol Succinate [Toprol XL -] 25 mg PO DAILY 08/29/16 Nitroglycerin Sublingual [Nitrostat -] 0.4 mg SL ASDIR PRN 08/29/16 Oxycodone HCl/Acetaminophen [Percocet 5-325 mg Tablet] 1 tab PO Q4H PRN 08/29/16 Pantoprazole Sodium [Protonix] 40 mg PO DAILY 08/29/16 Ranolazine [Ranexa] 500 mg PO BID 08/29/16 Rosuvastatin Calcium [Crestor] 40 mg PO DAILY 08/29/16 Sennosides [Senna] 8.6 mg PO HS 10/27/16 Acetaminophen [8Hr Arthritis Pain Relief] 650 mg PO QID PRN 07/02/18 Albuterol 2.5/Ipratropium 0.5 [Duoneb -] 1 amp NEB BID 07/02/18 Ferrous Sulfate 325 mg PO DAILY 07/02/18 Furosemide [Lasix] 40 mg PO DAILY 07/02/18 Guaifenesin/Pseudoephedrne HCl [Mucinex D ER 600-60 mg Tablet] 1 each PO BID 07/02/18 Multivit-Min/Iron Fum/Folic AC [Valrm-Sznlnol-Dqyjdiua Tablet] 1 each PO DAILY 07/02/18 Ondansetron Injection [Zofran Injection] 4 mg IM Q8H PRN 07/02/18 Propylene Glycol/Peg 400 [Systane 0.3-0.4% Eye Drops] 5 ml OP BID 07/02/18 Sennosides [Senna] 8.6 mg PO DAILY 07/02/18 Apixaban [Eliquis -] 2.5 mg PO BID tablet 07/06/18 Albuterol Sulfate Inhaler - [Ventolin HFA Inhaler -] 2 puff IN Q6H PRN 06/25/19 Ferrous Sulfate 325 mg PO DAILY 06/25/19 Ipratropium/Albuterol Sulfate [Iprat-Albut 0.5-3(2.5) mg/3 ml] 3 ml IH QID PRN 06/25/19 Lactulose 20 gm PO BID 06/25/19 Montelukast Sodium [Singulair] 10 mg PO HS 06/25/19 Propylene Glycol/Peg 400 [Systane Gel Eye Drops] 10 ml OP QID 06/25/19 Anemia: Yes Asthma: Yes Cancer: Yes (BILATERAL BREAST) Cardiac Disorders: Yes (ashd, cabg,) CVA: No COPD: Yes CHF: Yes Dementia: No Diabetes: No GI Disorders: Yes (gi bleed, corkscrew esophagus) Disorders: No HTN: Yes Hypercholesterolemia: Yes Liver Disease: No Seizures: No Thyroid Disease: No - Surgical History Abdominal Surgery: No Appendectomy: No Cardiac Surgery: Yes (stents 2) Cholecystectomy: No Lung Surgery: No Neurologic Surgery: No Orthopedic Surgery: Yes (Andrew TKR w/ bilat revisions) - Immunization History Immunization Up to Date: Yes - Psycho Social/Smoking Cessation Hx Smoking Status: No Smoking History: Never smoked Years of Tobacco Use: 0 Have you smoked in the past 12 months: No Number of Cigarettes Smoked Daily: 0 Hx Alcohol Use: No Drug/Substance Use Hx: No Substance Use Type: None Hx Substance Use Treatment: No Review of Systems - Review of Systems Able to Perform ROS?: Yes Comments:: 06/24/19 18:29 GENERAL/CONSTITUTIONAL: No fever or chills. No weakness. HEAD, EYES, EARS, NOSE AND THROAT: No change in vision. No ear pain or discharge. No sore throat. CARDIOVASCULAR: No chest pain or shortness of breath RESPIRATORY: No cough, wheezing, or hemoptysis. GASTROINTESTINAL: No nausea, vomiting, diarrhea or constipation. GENITOURINARY: Vaginal bleeding. Dysuria. No frequency, or change in urination. MUSCULOSKELETAL: No joint or muscle swelling or pain. No neck or back pain. SKIN: No rash NEUROLOGIC: No headache, vertigo, loss of consciousness, or change in strength/sensation. ENDOCRINE: No increased thirst. No abnormal weight change HEMATOLOGIC/LYMPHATIC: No anemia, easy bleeding, or history of blood clots. ALLERGIC/IMMUNOLOGIC: No hives or skin allergy. *Physical Exam - Vital Signs Last Vital Signs Temp Pulse Resp BP Pulse Ox 98.2 F 71 18 127/61 100 06/24/19 15:29 06/24/19 15:29 06/24/19 15:29 06/24/19 15:29 06/24/19 15:29 - Physical Exam 06/24/19 18:30 GENERAL: Awake, alert, and fully oriented, in no acute distress HEAD: No signs of trauma, normocephalic, atraumatic EYES: PERRLA, EOMI, sclera anicteric, conjunctiva clear ENT: Auricles normal inspection, hearing grossly normal, nares patent, oropharynx clear without exudates. Moist mucosa NECK: Normal ROM, supple, no lymphadenopathy, JVD, or masses LUNGS: No distress, speaks full sentences, clear to auscultation bilaterally HEART: Regular rate and rhythm, normal S1 and S2, no murmurs, rubs or gallops, peripheral pulses normal and equal bilaterally. ABDOMEN: RUQ, LLQ tenderness. Otherwise Soft, nontender, normoactive bowel sounds. No guarding, no rebound. No masses EXTREMITIES : Normal inspection, Normal range of motion, no edema. No clubbing or cyanosis NEUROLOGICAL: Cranial nerves II through XII grossly intact. Normal speech, normal gait, no focal sensorimotor deficits SKIN: Warm, Dry, normal turgor, no rashes or lesions noted Pelvic: Large blood clot covering vaginal opening. Steam of active, trickling vaginal bleeding. No external lesions or ulcerations. Exam limited by pain, tenderness. (Pt reports never having prior pelvic exam) ED Treatment Course - LABORATORY CBC & Chemistry Diagram: 06/25/19 06:30 06/25/19 06:30 Medical Decision Making - Medical Decision Making 03/20/20 18:34 89F w/hx afib on eliquis, CAD, s/p pacemaker, HTN, HLD, CHF, COPD, asthma, prior transfusion dependent anemia p/w three weeks vaginal bleeding worse over the last week. Ddx includes cancer given prior cancer history. UTI/hematuria also possible given prior episodes of hematuria, although would not explain vaginal bleeding visualized on exam. Plan: CBC CMP EKG CXR Cardiac profile PT/INR, APTT Type and screen Likely blood transfusion UA Urine culture CT abdomen/pelvis Dispo: Admit --- CBC - MCV 104.9, Hg - 6.4, plan for transfusion x2 units CMP - wnl Troponin - negative --- Written consent for blood transfusion obtained after discussion of risks/benefits of blood transfusion. Blood bank alerted. Patient to CT --- CT - no acute process visualized Patient signed out to admitting team, admitted under Dr. Howe. Discharge - Discharge Information Problems reviewed: Yes Clinical Impression/Diagnosis: Transfusion-dependent anemia, Vaginal bleeding Condition: Guarded - Admission Yes - Follow up/Referral - Patient Discharge Instructions - Post Discharge Activity
[2019-06-24 17:59] LABS: BASO % 0.7 % (0-2.0); LYMPH % 27.3 % (8-40); MCH 33.7 pg (25.7-33.7); MCHC 32.1 g/dl (32.0-36.0); MEAN CELL VOLUME 104.9 fl (80-96); MEAN PLT VOLUME 6.6 fl (7.5-11.1); MONO % 9.6 % (3.8-10.2); NEUT % 59.4 % (42.8-82.8); PLATELET COUNT 278 K/MM3 (134-434); RDW 16.2 % (11.6-15.6); WHITE BLOOD COUNT 5.2 K/mm3 (4.0-10.0)
[2019-06-24 18:05] LABS: HEMATOCRIT 19.9 % (32.4-45.2); HEMOGLOBIN 6.4 GM/dL (10.7-15.3)
[2019-06-24 18:10] LABS: INR 1.31 (0.83-1.09); PROTHROMBIN TIME (PATIENT) 15.5 SEC (9.7-13.0)
[2019-06-24 18:19] LABS: ACTIVATED PTT 28.8 SECONDS (25.2-36.5)
[2019-06-24 18:35] LABS: ALBUMIN 2.4 g/dl (3.4-5.0); BILIRUBIN,TOTAL 0.2 mg/dL (0.2-1); BLOOD UREA NITROGEN 17.8 mg/dL (7-18); CALCIUM 8.2 mg/dL (8.5-10.1); POTASSIUM 3.6 mmol/L (3.5-5.1); TOT PROT 5.4 g/dl (6.4-8.2)
--- NOTE | 2019-06-24 23:51 | HP ---
Admitting History and Physical - Primary Care Physician PCP: Real Zuleta - Admission Chief Complaint: Vaginal Bleeding, Dizziness, Weakness History of Present Illness: This is a 89 y/o female with a PMHx of Afib (on eliquis) s/p pacemaker, CAD, HTN, HLD, CHF, Mitral Insufficiency, Asthma, COPD, GERD, Chronic Anemia, Arthritis. Who presents to the ED with three weeks of vaginal bleeding with clots that increased over the last week. Patient reports using 1pad/hr. patient reports lower pelvic pressure and dysuria x 1 week. Patient reports having a similar prior episode one year ago which required blood transfusion, and she denies any weakness or lightheadedness at that time. Patient denies fever, chills, SOB, CP, palpitations, N/V, diarrhea, constipation. 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) Cardiovascular: Yes: AFIB, CAD, CHF, HTN, Hyperlipdemia, [place], Mitral Insufficiency, Other (Atrial septal defect, intermittent palpitations, status post acute inferior wall myocardial infarction) Pulmonary: Yes: Asthma, COPD, Other (intrinsic bronchial asthma) Gastrointestinal: Yes: GERD, Other (esophageal dysmotility disorder with tertiary contractions, retention and reversed peristalsis, intermittent nausea and vomiting, history of ischemic colitis, s/p Chase fundoplasty, s/p H Pylori infection and gastritis, s/p cholecystectomy, appendectomy, intermittent mid and right lumbar abdominal pain, s/p ventral hernia repair,) Hepatobiliary: Yes: Cholelithiasis, Cholecystitis Heme/Onc: Yes: Anemia, B12 Deficiency Infectious Disease: Yes: MRSA (left knee, acute) Psych: Yes: Depression Musculoskeletal: Yes: Chronic low back pain, Osteoarthritis, Other (s/ TKR x2, 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, left shoulder pain related to osteoarthritis) Rheumatology: Yes: Rheumatoid Arthritis ENT: Yes: Allergic Rhinitis Endocrine: Yes: Hypothyroidism, Osteopenia - Past Surgical History Past Surgical History: Yes: Appendectomy, Cataract Removal, Cholecystectomy, Hernia Repair, Joint Replacement, Permanent Pacemaker, Stent, Tonsillectomy - Smoking History Smoking history: Never smoked Have you smoked in the past 12 months: No Aproximately how many cigarettes per day: 0 - Alcohol/Substance Use Hx Alcohol Use: No History of Substance Use: reports: None - Social History Usual Living Arrangement: Yes: Care Home ADL: Support Services History of Recent Travel: No Home Medications - Allergies Allergies/Adverse Reactions: Allergies Allergy/AdvReac Type Severity Reaction Status Date / Time alcohol Allergy Severe Difficulty Verified 06/24/19 15:29 Breathing ciprofloxacin [From Cipro] Allergy Severe Difficulty Verified 06/24/19 15:29 Breathing ciprofloxacin HCl Allergy Severe Difficulty Verified 06/24/19 15:29 [From Cipro] Breathing erythromycin base Allergy Severe Difficulty Verified 06/24/19 15:29 [Erythromycin Base] Breathing metronidazole [From Flagyl] Allergy Severe Difficulty Verified 06/24/19 15:29 Breathing Metronidazole HCl Allergy Severe Difficulty Verified 06/24/19 15:29 [From Flagyl] Breathing Penicillins Allergy Severe Difficulty Verified 06/24/19 15:29 Breathing tetracycline [Tetracycline] Allergy Severe Difficulty Verified 06/24/19 15:29 Breathing adhesive Allergy Verified 06/24/19 15:29 adhesive tape Allergy Verified 06/24/19 15:29 clindamycin Allergy Verified 06/24/19 15:29 codeine [Codeine] Allergy Verified 06/24/19 15:29 isosorbide mononitrate Allergy Verified 06/24/19 15:29 [From Ismo] meperidine HCl [From Demerol] Allergy Verified 06/24/19 15:29 nisoldipine Allergy Verified 06/24/19 15:29 povidone-iodine Allergy Verified 06/24/19 15:29 [From Betadine] prochlorperazine edisylate Allergy Verified 06/24/19 15:29 [From Compazine] prochlorperazine maleate Allergy Verified 06/24/19 15:29 [From Compazine] soap [From Betadine] Allergy Verified 06/24/19 15:29 EITHER Allergy Unknown Uncoded 06/24/19 15:29 - Home Medications Home Medications: Ambulatory Orders Albuterol Sulfate Inhaler - [Ventolin HFA Inhaler -] 2 puff IH ASDIR PRN 08/29/16 Ascorbate Calcium [Vitamin C] 500 mg PO DAILY 08/29/16 Cholecalciferol (Vitamin D3) [Vitamin D3] 5,000 unit PO DAILY 08/29/16 Docusate Sodium [Colace -] 200 mg PO HS 08/29/16 Fluticasone Prop 0.05% Nasal [Flonase -] 1 spray NS DAILY 08/29/16 Fluticasone Propionate [Flovent Diskus] 100 mcg IH DAILY 08/29/16 Folic Acid 1 mg PO DAILY 08/29/16 Furosemide [Lasix] 20 mg PO Q48H 08/29/16 Ipratropium [place] 15 ml NS BID 08/29/16 Metoprolol Succinate [Toprol XL -] 25 mg PO DAILY 08/29/16 Nitroglycerin Sublingual [Nitrostat -] 0.4 mg SL ASDIR PRN 08/29/16 Oxycodone HCl/Acetaminophen [Percocet 5-325 mg Tablet] 1 tab PO Q4H PRN 08/29/16 Pantoprazole Sodium [Protonix] 40 mg PO DAILY 08/29/16 Ranolazine [Ranexa] 500 mg PO BID 08/29/16 Rosuvastatin Calcium [Crestor] 40 mg PO DAILY 08/29/16 Sennosides [Senna] 8.6 mg PO HS 10/27/16 Acetaminophen [8Hr Arthritis Pain Relief] 650 mg PO QID PRN 07/02/18 Albuterol 2.5/Ipratropium 0.5 [Duoneb -] 1 amp NEB BID 07/02/18 Ferrous Sulfate 325 mg PO DAILY 07/02/18 Furosemide [Lasix] 40 mg PO DAILY 07/02/18 Guaifenesin/Pseudoephedrne HCl [Mucinex D ER 600-60 mg Tablet] 1 each PO BID 07/02/18 Multivit-Min/Iron Fum/Folic AC [Hhsaa-Nlfasic-Rkuawcch Tablet] 1 each PO DAILY 07/02/18 Ondansetron Injection [Zofran Injection] 4 mg IM Q8H PRN 07/02/18 Propylene Glycol/Peg 400 [Systane 0.3-0.4% Eye Drops] 5 ml OP BID 07/02/18 Sennosides [Senna] 8.6 mg PO DAILY 07/02/18 Apixaban [Eliquis -] 2.5 mg PO BID tablet 07/06/18 Albuterol Sulfate Inhaler - [Ventolin HFA Inhaler -] 2 puff IN Q6H PRN 06/25/19 Ferrous Sulfate 325 mg PO DAILY 06/25/19 Ipratropium/Albuterol Sulfate [Iprat-Albut 0.5-3(2.5) mg/3 ml] 3 ml IH QID PRN 06/25/19 Lactulose 20 gm PO BID 06/25/19 Montelukast Sodium [Singulair] 10 mg PO HS 06/25/19 Propylene Glycol/Peg 400 [Systane Gel Eye Drops] 10 ml OP QID 06/25/19 Family Medical History Family Hx Cancer: Mother (Uterine, Cervical) Other Family History: Maternal Aunts- Breast Ca, Uterine Ca Review of Systems - Review of Systems Constitutional: reports: Weakness Eyes: reports: No Symptoms HENT: reports: No Symptoms Neck: reports: No Symptoms Cardiovascular: reports: No Symptoms Respiratory: reports: No Symptoms Gastrointestinal: reports: Abdominal Pain, Rectal Bleeding Genitourinary: reports: Vaginal Bleeding Breasts: reports: No Symptoms Reported Musculoskeletal: reports: No Symptoms Integumentary: reports: No Symptoms Neurological: reports: Dizziness Endocrine: reports: No Symptoms Hematology/Lymphatic: reports: No Symptoms Psychiatric: reports: No Symptoms Pain Intensity: 4 Physical Examination Vital Signs: Vital Signs Temperature 97.6 F 06/24/19 20:35 Pulse Rate 72 06/24/19 20:35 Respiratory Rate 19 06/24/19 22:45 Blood Pressure 116/42 L 06/24/19 20:35 O2 Sat by Pulse Oximetry (%) 99 06/24/19 22:45 Constitutional: Yes: No Distress, Calm, Pallor, Thin Eyes: Yes: Conjunctiva Clear (pale), EOM Intact, PERRL HENT: Yes: Atraumatic, Normocephalic, Other (dry mucous membranes) Neck: Yes: WNL, Supple, Trachea Midline Cardiovascular: Yes: Regular Rate and Rhythm, S1, S2 Respiratory: Yes: Regular, CTA Bilaterally Gastrointestinal: Yes: Soft, Hypoactive Bowel Sounds, Tenderness (lower pelvic) ...Rectal Exam: Yes: Guaiac Positive, Sphincter Tone Normal Renal/: Yes: Vaginal Bleeding (with clots) Breast(s): Yes: WNL Musculoskeletal: Yes: WNL Extremities: Yes: WNL Edema: Yes Edema: LLE: 1+, RLE: 1+ Peripheral Pulses WNL: Yes Neurological: Yes: WNL, Alert, Oriented, Cran Nerves II-XII Intact ...Motor Strength: WNL Psychiatric: Yes: WNL, Alert, Oriented Labs: CBC, BMP 06/24/19 16:00 06/24/19 16:00 Laboratory Results - last 24 hr 06/24/19 06/24/19 06/24/19 16:00 16:00 16:00 WBC 5.2 RBC 1.90 L Hgb 6.4 L* Hct 19.9 L D MCV 104.9 H MCH 33.7 MCHC 32.1 RDW 16.2 H Plt Count 278 D MPV 6.6 L D Absolute Neuts (auto) 3.1 Neutrophils % 59.4 Lymphocytes % 27.3 Monocytes % 9.6 Eosinophils % 3.0 Basophils % 0.7 Nucleated RBC % 0 PT with INR 15.50 H INR 1.31 H PTT (Actin FS) 28.8 Sodium 143 Potassium 3.6 Chloride 106 Carbon Dioxide 29 Anion Gap 8 BUN 17.8 Creatinine 1.0 Est GFR (CKD-EPI)AfAm 58.25 Est GFR (CKD-EPI)NonAf 50.26 Random Glucose 91 Calcium 8.2 L Total Bilirubin 0.2 AST 21 ALT 13 Alkaline Phosphatase 49 Creatine Kinase 52 Troponin I 0.03 Total Protein 5.4 L Albumin 2.4 L Stool Occult Blood Blood Type Antibody Screen Crossmatch 06/24/19 06/25/19 16:00 02:57 WBC RBC Hgb Hct MCV MCH MCHC RDW Plt Count MPV Absolute Neuts (auto) Neutrophils % Lymphocytes % Monocytes % Eosinophils % Basophils % Nucleated RBC % PT with INR INR PTT (Actin FS) Sodium Potassium Chloride Carbon Dioxide Anion Gap BUN Creatinine Est GFR (CKD-EPI)AfAm Est GFR (CKD-EPI)NonAf Random Glucose Calcium Total Bilirubin AST ALT Alkaline Phosphatase Creatine Kinase Troponin I Total Protein Albumin Stool Occult Blood Positive Blood Type A POSITIVE Antibody Screen Negative Crossmatch See Detail Intake & Output 06/22/19 06/23/19 06/24/19 06/25/19 23:59 23:59 23:59 23:59 Intake Total 200 Balance 200 Weight 54.431 kg Imaging - Results Chest X-ray: Report Reviewed, Image Reviewed Cat Scan: Report Reviewed, Image Reviewed Problem List - Problems (1) Symptomatic anemia Code(s): D64.9 - ANEMIA, UNSPECIFIED (2) Vaginal bleeding Code(s): N93.9 - ABNORMAL UTERINE AND VAGINAL BLEEDING, UNSPECIFIED (3) Afib Code(s): I48.91 - UNSPECIFIED ATRIAL FIBRILLATION (4) HTN (hypertension) Code(s): I10 - ESSENTIAL (PRIMARY) HYPERTENSION (5) HLD (hyperlipidemia) Code(s): E78.5 - HYPERLIPIDEMIA, UNSPECIFIED (6) COPD (chronic obstructive pulmonary disease) Code(s): J44.9 - CHRONIC OBSTRUCTIVE PULMONARY DISEASE, UNSPECIFIED (7) Asthma Code(s): J45.909 - UNSPECIFIED ASTHMA, UNCOMPLICATED (8) GERD (gastroesophageal reflux disease) Code(s): K21.9 - GASTRO-ESOPHAGEAL REFLUX DISEASE WITHOUT ESOPHAGITIS Assessment/Plan This is a 89 y/o female with a PMHx of Afib (on eliquis) s/p pacemaker, CAD, HTN, HLD, CHF, Mitral Insufficiency, Asthma, COPD, GERD, Chronic Anemia, Arthritis. Admitted to [facility] for Symptomatic Anemia with Vaginal Bleeding for further evaluation of their emergent condition. 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 - New Patient This patient is new to me today: Yes Date on this admission: 06/24/19 - Critical Care Critical Care patient: No
[2019-06-25] MEDS ORDERED: ALBUTEROL SO4 2.5/IPRATROPIUM 0.5 INH SOL 3 ML VIAL.NEB. NEB PRN (05:27)
[2019-06-25] MEDS ORDERED: ACETAMINOPHEN 1000 MG/100 ML VIAL (NON FORMULARY) IVPB PRN (05:28)
[2019-06-25 06:52] LABS: BASO % 0.6 % (0-2.0); EOS % 2.5 % (0-4.5); HEMATOCRIT 23.9 % (32.4-45.2); HEMOGLOBIN 8.1 GM/dL (10.7-15.3); LYMPH % 19.2 % (8-40); MCH 32.4 pg (25.7-33.7); MEAN CELL VOLUME 95.2 fl (80-96); MEAN PLT VOLUME 6.8 fl (7.5-11.1); MONO % 10.2 % (3.8-10.2); NEUT % 67.5 % (42.8-82.8); PLATELET COUNT 208 K/MM3 (134-434); RBC 2.51 M/mm3 (3.60-5.2); RDW 19.3 % (11.6-15.6)
[2019-06-25 07:16] LABS: BLOOD UREA NITROGEN 16.5 mg/dL (7-18); CALCIUM 7.8 mg/dL (8.5-10.1); POTASSIUM 3.5 mmol/L (3.5-5.1)
[2019-06-25] MEDS ORDERED: PANTOPRAZOLE SODIUM 40 MG VIAL IVPUSH SCH (10:00)
--- NOTE | 2019-06-25 13:37 | CON.GI ---
Consult - History of Present Illness History of Present Illness: Mrs. Torrez is an 89 year old woman with a past medical history of Atrial fibrillation (on eliquis), pacemaker, CAD, HTN, HLD, CHF, Asthma, COPD, GERD, Chronic Anemia, Arthritis, breast cancer who presents to the hospital for vaginal bleed. This consult is for FOBT positive stool. Patient does not offer much history. There is no report of melena / brbr. She has not had a recent endoscopic evaluation. 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) Cardio/Vascular: Yes: AFIB, CAD, CHF, HTN, Hyperlipdemia, CA, Mitral Insufficiency, Other (Atrial septal defect, intermittent palpitations, status post acute inferior wall myocardial infarction) Pulmonary: Yes: Asthma, COPD, Other (intrinsic bronchial asthma) Gastrointestinal: Yes: GERD, Other (esophageal dysmotility disorder with tertiary contractions, retention and reversed peristalsis, intermittent nausea and vomiting, history of ischemic colitis, s/p Chase fundoplasty, s/p H Pylori infection and gastritis, s/p cholecystectomy, appendectomy, intermittent mid and right lumbar abdominal pain, s/p ventral hernia repair,) Hepatobiliary: Yes: Cholelithiasis, Cholecystitis Infectious Disease: Yes: MRSA (left knee, acute) Psych: Yes: Depression Musculoskeletal: Yes: Chronic low back pain, Osteoarthritis, Other (s/ TKR x2, 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 bilater al c7/c6 radiculopathy, left shoulder pain related to osteoarthritis) Rheumatology: Yes: Rheumatoid Arthritis ENT: Yes: Allergic Rhinitis Endocrine: Yes: Hypothyroidism, Osteopenia - Past Surgical History Past Surgical History: Yes: Appendectomy, Cataract Removal, Cholecystectomy, Hernia Repair, Joint Replacement, Permanent Pacemaker, Stent, Tonsillectomy - Alcohol/Substance Use Hx Alcohol Use: No History of Substance Use: reports: None - Smoking History Smoking history: Never smoked Have you smoked in the past 12 months: No Aproximately how many cigarettes per day: 0 - Social History ADL: Support Services History of Recent Travel: No Home Medications - Allergies Allergies/Adverse Reactions: Allergies Allergy/AdvReac Type Severity Reaction Status Date / Time alcohol Allergy Severe Difficulty Verified 06/24/19 15:29 Breathing ciprofloxacin [From Cipro] Allergy Severe Difficulty Verified 06/24/19 15:29 Breathing ciprofloxacin HCl Allergy Severe Difficulty Verified 06/24/19 15:29 [From Cipro] Breathing erythromycin base Allergy Severe Difficulty Verified 06/24/19 15:29 [Erythromycin Base] Breathing metronidazole [From Flagyl] Allergy Severe Difficulty Verified 06/24/19 15:29 Breathing Metronidazole HCl Allergy Severe Difficulty Verified 06/24/19 15:29 [From Flagyl] Breathing Penicillins Allergy Severe Difficulty Verified 06/24/19 15:29 Breathing tetracycline [Tetracycline] Allergy Severe Difficulty Verified 06/24/19 15:29 Breathing adhesive Allergy Verified 06/24/19 15:29 adhesive tape Allergy Verified 06/24/19 15:29 clindamycin Allergy Verified 06/24/19 15:29 codeine [Codeine] Allergy Verified 06/24/19 15:29 isosorbide mononitrate Allergy Verified 06/24/19 15:29 [From Ismo] meperidine HCl [From Demerol] Allergy Verified 06/24/19 15:29 nisoldipine Allergy Verified 06/24/19 15:29 povidone-iodine Allergy Verified 06/24/19 15:29 [From Betadine] prochlorperazine edisylate Allergy Verified 06/24/19 15:29 [From Compazine] prochlorperazine maleate Allergy Verified 06/24/19 15:29 [From Compazine] soap [From Betadine] Allergy Verified 06/24/19 15:29 EITHER Allergy Unknown Uncoded 06/24/19 15:29 - Home Medications Home Medications: Ambulatory Orders Albuterol Sulfate Inhaler - [Ventolin HFA Inhaler -] 2 puff IH ASDIR PRN 08/29/16 Ascorbate Calcium [Vitamin C] 500 mg PO DAILY 08/29/16 Cholecalciferol (Vitamin D3) [Vitamin D3] 5,000 unit PO DAILY 08/29/16 Docusate Sodium [Colace -] 200 mg PO HS 08/29/16 Fluticasone Prop 0.05% Nasal [Flonase -] 1 spray NS DAILY 08/29/16 Fluticasone Propionate [Flovent Diskus] 100 mcg IH DAILY 08/29/16 Folic Acid 1 mg PO DAILY 08/29/16 Furosemide [Lasix] 20 mg PO Q48H 08/29/16 Ipratropium [place] 15 ml NS BID 08/29/16 Metoprolol Succinate [Toprol XL -] 25 mg PO DAILY 08/29/16 Nitroglycerin Sublingual [Nitrostat -] 0.4 mg SL ASDIR PRN 08/29/16 Oxycodone HCl/Acetaminophen [Percocet 5-325 mg Tablet] 1 tab PO Q4H PRN 08/29/16 Pantoprazole Sodium [Protonix] 40 mg PO DAILY 08/29/16 Ranolazine [Ranexa] 500 mg PO BID 08/29/16 Rosuvastatin Calcium [Crestor] 40 mg PO DAILY 08/29/16 Sennosides [Senna] 8.6 mg PO HS 10/27/16 Acetaminophen [8Hr Arthritis Pain Relief] 650 mg PO QID PRN 07/02/18 Albuterol 2.5/Ipratropium 0.5 [Duoneb -] 1 amp NEB BID 07/02/18 Ferrous Sulfate 325 mg PO DAILY 07/02/18 Furosemide [Lasix] 40 mg PO DAILY 07/02/18 Guaifenesin/Pseudoephedrne HCl [Mucinex D ER 600-60 mg Tablet] 1 each PO BID 07/02/18 Multivit-Min/Iron Fum/Folic AC [Gdqfv-Bmsjwqt-Uojhqcxb Tablet] 1 each PO DAILY 07/02/18 Ondansetron Injection [Zofran Injection] 4 mg IM Q8H PRN 07/02/18 Propylene Glycol/Peg 400 [Systane 0.3-0.4% Eye Drops] 5 ml OP BID 07/02/18 Sennosides [Senna] 8.6 mg PO DAILY 07/02/18 Apixaban [Eliquis -] 2.5 mg PO BID tablet 07/06/18 Albuterol Sulfate Inhaler - [Ventolin HFA Inhaler -] 2 puff IN Q6H PRN 06/25/19 Ferrous Sulfate 325 mg PO DAILY 06/25/19 Ipratropium/Albuterol Sulfate [Iprat-Albut 0.5-3(2.5) mg/3 ml] 3 ml IH QID PRN 06/25/19 Lactulose 20 gm PO BID 06/25/19 Montelukast Sodium [Singulair] 10 mg PO HS 06/25/19 Propylene Glycol/Peg 400 [Systane Gel Eye Drops] 10 ml OP QID 06/25/19 Family Medical History Family History: Unable to Obtain Review of Systems Unable to obtain ROS, reason: as per hpi Physical Exam-GI Vital Signs: Vital Signs Temperature 98.3 F 06/25/19 05:15 Pulse Rate 70 06/25/19 05:15 Respiratory Rate 18 06/25/19 06:00 Blood Pressure 111/53 L 06/25/19 05:15 O2 Sat by Pulse Oximetry (%) 99 06/25/19 06:00 Constitutional: Yes: Well Nourished, No Distress, Calm Cardiovascular: Yes: WNL, Regular Rate and Rhythm Respiratory: Yes: WNL, Regular, CTA Bilaterally Gastrointestinal Inspection: Yes: WNL ...Auscultate: Yes: Normoactive Bowel Sounds, Other (not tender ; nml bowel sounds) Edema: No Labs: CBC, BMP 06/25/19 06:30 06/25/19 06:30 INR, PTT INR 1.31 (0.83-1.09) H 06/24/19 16:00 Problem List - Problems (1) Vaginal bleeding Assessment/Plan: Impression: Anemia most likely secondary to team leader etiology. There is NO sign of an overt GI bleed at this time. Rec: - serial h/h - diet as tolerated - team leader f/u - further GI evaluation can be done outpt. - please re-consult with questions or concerns Code(s): N93.9 - ABNORMAL UTERINE AND VAGINAL BLEEDING, UNSPECIFIED (2) Symptomatic anemia Code(s): D64.9 - ANEMIA, UNSPECIFIED
--- NOTE | 2019-06-25 15:50 | PN ---
Physical Exam: SUBJECTIVE: Patient seen and examined at the bedside. in no acute distress, still having vaginal bleed with frequent changes of menstral pad. tolerated 2 units of prbc OBJECTIVE: Patient is a 89 year old female with a PMHx of Afib (on eliquis) s/p pacemaker, CAD, HTN, HLD, CHF, Mitral Insufficiency, Asthma, COPD, GERD, Chronic Anemia, Arthritis. Who presents to the ED with three weeks of vaginal bleeding with clots that increased over the last week. Patient reports using 1pad/hr. patient reports lower pelvic pressure and dysuria x 1 week. Patient reports having a similar prior episode one year ago which required blood transfusion, and she denies any weakness or lightheadedness at that time. Patient denies fever, chills, SOB, CP, palpitations, N/V, diarrhea, constipation. Vital Signs Period Temp Pulse Resp BP Sys/Spence Pulse Ox Last 24 Hr 97.6 F-98.3 F 65-88 18-24 108-123/41-70 96-100 Constitutional: Yes: No Distress, Calm Eyes: Yes: Conjunctiva Clear (pale), EOM Intact, PERRL HENT: Yes: Atraumatic, Normocephalic, Other (dry mucous membranes) Neck: Yes: WNL, Supple, Trachea Midline Cardiovascular: Yes: Regular Rate and Rhythm, S1, S2 Respiratory: Yes: Regular, CTA Bilaterally Gastrointestinal: Yes: Soft, Hypoactive Bowel Sounds, Tenderness (lower pelvic) Renal/: Yes: Vaginal Bleeding (with clots) Edema: LLE: 1+, RLE: 1+ Laboratory Results - last 24 hr 06/24/19 06/24/19 06/24/19 16:00 16:00 16:00 WBC 5.2 RBC 1.90 L Hgb 6.4 L* Hct 19.9 L D MCV 104.9 H MCH 33.7 MCHC 32.1 RDW 16.2 H Plt Count 278 D MPV 6.6 L D Absolute Neuts (auto) 3.1 Neutrophils % 59.4 Lymphocytes % 27.3 Monocytes % 9.6 Eosinophils % 3.0 Basophils % 0.7 Nucleated RBC % 0 PT with INR 15.50 H INR 1.31 H PTT (Actin FS) 28.8 Sodium 143 Potassium 3.6 Chloride 106 Carbon Dioxide 29 Anion Gap 8 BUN 17.8 Creatinine 1.0 Est GFR (CKD-EPI)AfAm 58.25 Est GFR (CKD-EPI)NonAf 50.26 Random Glucose 91 Calcium 8.2 L Total Bilirubin 0.2 AST 21 ALT 13 Alkaline Phosphatase 49 Creatine Kinase 52 Troponin I 0.03 Total Protein 5.4 L Albumin 2.4 L Stool Occult Blood Blood Type Antibody Screen Crossmatch 06/24/19 06/25/19 06/25/19 16:00 02:57 06:30 WBC 5.0 RBC 2.51 L Hgb 8.1 L Hct 23.9 L D MCV 95.2 D MCH 32.4 MCHC 34.0 RDW 19.3 H Plt Count 208 D MPV 6.8 L Absolute Neuts (auto) 3.4 Neutrophils % 67.5 Lymphocytes % 19.2 D Monocytes % 10.2 Eosinophils % 2.5 Basophils % 0.6 Nucleated RBC % 0 PT with INR INR PTT (Actin FS) Sodium Potassium Chloride Carbon Dioxide Anion Gap BUN Creatinine Est GFR (CKD-EPI)AfAm Est GFR (CKD-EPI)NonAf Random Glucose Calcium Total Bilirubin AST ALT Alkaline Phosphatase Creatine Kinase Troponin I Total Protein Albumin Stool Occult Blood Positive Blood Type A POSITIVE Antibody Screen Negative Crossmatch See Detail 06/25/19 06:30 WBC RBC Hgb Hct MCV MCH MCHC RDW Plt Count MPV Absolute Neuts (auto) Neutrophils % Lymphocytes % Monocytes % Eosinophils % Basophils % Nucleated RBC % PT with INR INR PTT (Actin FS) Sodium 143 Potassium 3.5 Chloride 107 Carbon Dioxide 29 Anion Gap 6 L BUN 16.5 Creatinine 1.0 Est GFR (CKD-EPI)AfAm 58.25 Est GFR (CKD-EPI)NonAf 50.26 Random Glucose 97 Calcium 7.8 L Total Bilirubin AST ALT Alkaline Phosphatase Creatine Kinase Troponin I Total Protein Albumin Stool Occult Blood Blood Type Antibody Screen Crossmatch Active Medications Generic Name Dose Route Start Last Admin Trade Name Freq PRN Reason Stop Dose Admin Acetaminophen 650 mg 06/25/19 05:28 Ofirmev Injection - IVPB 06/26/19 05:28 Q6H PRN PAIN LEVEL 6-10 Albuterol/Ipratropium 1 amp 06/25/19 05:27 Duoneb - NEB RQID PRN SHORTNESS OF BREATH Pantoprazole Sodium 40 mg 06/25/19 22:00 Protonix Iv IVPUSH BID BISMARK ASSESSMENT/PLAN: Problem List - Problems (1) GI bleed Assessment/Plan: seen by GI specialist and recommends outpatient follow up as bleeding is likely due to vaginal bleed on protonix bid will advance diet Code(s): K92.2 - GASTROINTESTINAL HEMORRHAGE, UNSPECIFIED (2) Afib Assessment/Plan: off eliquis for vaginal bleed rate controlled. Code(s): I48.91 - UNSPECIFIED ATRIAL FIBRILLATION (3) Asthma Assessment/Plan: not in acute exacerbation Code(s): J45.909 - UNSPECIFIED ASTHMA, UNCOMPLICATED (4) Symptomatic anemia Assessment/Plan: s/p 2 units of prbc Code(s): D64.9 - ANEMIA, UNSPECIFIED (5) Vaginal bleeding Assessment/Plan: s/p 2 units of blood, bleeding has been intermittent for the last month per patient but worsened over last few days repeat cbc today as she likely will need to be transfused Code(s): N93.9 - ABNORMAL UTERINE AND VAGINAL BLEEDING, UNSPECIFIED Visit type - Emergency Visit Emergency Visit: Yes ED Registration Date: 06/24/19 Care time: The patient presented to the Emergency Department on the above date and was hospitalized for further evaluation of their emergent condition. - New Patient This patient is new to me today: No - Critical Care Critical Care patient: No - Discharge Referral Referred to [facility] Med P.C[facility] No
[2019-06-25] MEDS: PANTOPRAZOLE SODIUM 40 MG VIAL IVPUSH SCH (21:52)
[2019-06-26 10:28] LABS: BASO % 0.8 % (0-2.0); EOS % 0.7 % (0-4.5); HEMATOCRIT 16.5 % (32.4-45.2); LYMPH % 21.5 % (8-40); MCH 32.8 pg (25.7-33.7); MCHC 34.3 g/dl (32.0-36.0); MEAN CELL VOLUME 95.6 fl (80-96); MEAN PLT VOLUME 7.2 fl (7.5-11.1); MONO % 7.2 % (3.8-10.2); NEUT % 69.8 % (42.8-82.8); PLATELET COUNT 206 K/MM3 (134-434); RBC 1.72 M/mm3 (3.60-5.2); RDW 20.3 % (11.6-15.6); WHITE BLOOD COUNT 6.9 K/mm3 (4.0-10.0)
[2019-06-26] MEDS: PANTOPRAZOLE SODIUM 40 MG VIAL IVPUSH SCH ×2 (10:36→22:07)
[2019-06-26 10:38] LABS: HEMOGLOBIN 5.7 GM/dL (10.7-15.3)
[2019-06-26] MEDS: traMADol HCL 50 MG TABLET PO PRN ×2 (11:42→22:06)
--- NOTE | 2019-06-26 16:57 | PN ---
Physical Exam: SUBJECTIVE: Patient seen and examined, vaginal bleeding lessened today, but hmg/hct low. patient denies any symptoms. OBJECTIVE: Patient is a 89 year old female with a PMHx of Afib (on eliquis) s/p pacemaker, CAD, HTN, HLD, CHF, Mitral Insufficiency, Asthma, COPD, GERD, Chronic Anemia, Arthritis. Who presents to the ED with three weeks of vaginal bleeding with clots that increased over the last week. Patient reports using 1pad/hr. patient reports lower pelvic pressure and dysuria x 1 week. Patient reports having a similar prior episode one year ago which required blood transfusion, and she denies any weakness or lightheadedness at that time. Patient denies fever, chills, SOB, CP, palpitations, N/V, diarrhea, constipation. hmg/hct critically low, will give another 2 units of prbc. appear to have a prolapsed bladder, urology consulted. Vital Signs Period Temp Pulse Resp BP Sys/Spence Pulse Ox Last 24 Hr 97.6 F-98.6 F 62-70 18-20 116-128/47-54 96-97 Constitutional: Yes: No Distress, Calm Eyes: Yes: Conjunctiva Clear (pale), EOM Intact, PERRL HENT: Yes: Atraumatic, Normocephalic, Other (dry mucous membranes) Neck: Yes: WNL, Supple, Trachea Midline Cardiovascular: Yes: Regular Rate and Rhythm, S1, S2 Respiratory: Yes: Regular, CTA Bilaterally Gastrointestinal: Yes: Soft, Hypoactive Bowel Sounds, Tenderness (lower pelvic) Renal/: Yes: Vaginal Bleeding (with clots) Edema: LLE: 1+, RLE: 1+ Laboratory Results - last 24 hr 06/24/19 06/24/19 06/26/19 16:00 16:00 10:00 WBC 6.9 RBC 1.72 L Hgb 5.7 L* Hct 16.5 L D MCV 95.6 MCH 32.8 MCHC 34.3 RDW 20.3 H Plt Count 206 MPV 7.2 L Absolute Neuts (auto) 4.8 Neutrophils % 69.8 Lymphocytes % 21.5 Monocytes % 7.2 Eosinophils % 0.7 Basophils % 0.8 Nucleated RBC % 0 Sodium 143 Potassium 3.6 Chloride 106 Carbon Dioxide 29 Anion Gap 8 BUN 17.8 Creatinine 1.0 Est GFR (CKD-EPI)AfAm 58.25 Est GFR (CKD-EPI)NonAf 50.26 Random Glucose 91 Calcium 8.2 L Total Bilirubin 0.2 AST 21 ALT 13 Alkaline Phosphatase 49 Creatine Kinase 52 Troponin I 0.03 Total Protein 5.4 L Albumin 2.4 L Blood Type A POSITIVE Antibody Screen Negative Crossmatch See Detail Active Medications Generic Name Dose Route Start Last Admin Trade Name Freq PRN Reason Stop Dose Admin Acetaminophen 650 mg 06/26/19 11:14 Tylenol - PO Q6H PRN PAIN LEVEL 4 - 6 Albuterol/Ipratropium 1 amp 06/25/19 05:27 Duoneb - NEB RQID PRN SHORTNESS OF BREATH Pantoprazole Sodium 40 mg 06/25/19 22:00 06/26/19 10:36 Protonix Iv IVPUSH 40 mg BID BISMARK Administration Tramadol HCl 25 mg 06/26/19 11:15 06/26/19 11:42 Ultram - PO 25 mg Q6H PRN Administration PAIN LEVEL 7 - 10 ASSESSMENT/PLAN: Problem List - Problems (1) GI bleed Assessment/Plan: seen by GI specialist and recommends outpatient follow up as bleeding is likely due to vaginal bleed on protonix bid will advance diet Code(s): K92.2 - GASTROINTESTINAL HEMORRHAGE, UNSPECIFIED (2) Afib Assessment/Plan: off eliquis for vaginal bleed rate controlled. Code(s): I48.91 - UNSPECIFIED ATRIAL FIBRILLATION (3) Asthma Assessment/Plan: not in acute exacerbation Code(s): J45.909 - UNSPECIFIED ASTHMA, UNCOMPLICATED (4) Symptomatic anemia Assessment/Plan: hmg/hct dropped to 5.7/16, being transfused 2 units of prbc now. Code(s): D64.9 - ANEMIA, UNSPECIFIED (5) Vaginal bleeding Assessment/Plan: s/p 2 units of blood, bleeding has been intermittent for the last month per patient but worsened over last few days repeat cbc today as she likely will need to be transfused Code(s): N93.9 - ABNORMAL UTERINE AND VAGINAL BLEEDING, UNSPECIFIED (6) Prolapse of bladder Code(s): [id number] - Visit type - Emergency Visit Emergency Visit: Yes ED Registration Date: 06/24/19 Care time: The patient presented to the Emergency Department on the above date and was hospitalized for further evaluation of their emergent condition. - New Patient This patient is new to me today: No - Critical Care Critical Care patient: No - Discharge Referral Referred to [facility] Med P.C.: No
[2019-06-27 07:46] LABS: BASO % 0.7 % (0-2.0); EOS % 3.9 % (0-4.5); HEMOGLOBIN 8.4 GM/dL (10.7-15.3); MCH 31.5 pg (25.7-33.7); MCHC 35.2 g/dl (32.0-36.0); MEAN CELL VOLUME 89.5 fl (80-96); MEAN PLT VOLUME 6.9 fl (7.5-11.1); MONO % 9.6 % (3.8-10.2); NEUT % 57.8 % (42.8-82.8); PLATELET COUNT 180 K/MM3 (134-434); RBC 2.68 M/mm3 (3.60-5.2); RDW 16.7 % (11.6-15.6)
[2019-06-27 07:58] LABS: ALBUMIN 2.2 g/dl (3.4-5.0); BILIRUBIN,TOTAL 0.5 mg/dL (0.2-1); BLOOD UREA NITROGEN 16.1 mg/dL (7-18); CALCIUM 7.5 mg/dL (8.5-10.1); CREATININE 1.2 mg/dL (0.55-1.3); MAGNESIUM 2.2 mg/dL (1.8-2.4); POTASSIUM 3.9 mmol/L (3.5-5.1); TOT PROT 4.6 g/dl (6.4-8.2)
--- NOTE | 2019-06-27 09:10 | EKG ---
Test Reason : Blood Pressure : / mmHG Vent. Rate : 067 BPM Atrial Rate : 300 BPM P-R Int : 000 ms QRS Dur : 146 ms QT Int : 470 ms P-R-T Axes : 000 -63 108 degrees QTc Int : 496 ms [place] fibrillation with Ventricular-paced rhythm ABNORMAL ECG WHEN COMPARED WITH ECG OF 02-JUL-2018 21:04, VENT. RATE HAS INCREASED BY 4 BPM Confirmed by Maryjane Contreras ([id number]) on 06/27/2019 9:10:25 AM Referred By: Confirmed By:Maryjane Contreras
--- NOTE | 2019-06-27 10:26 | PN ---
Physical Exam: SUBJECTIVE: Patient seen and examined, reports that she feels the vaginal bleeding has decreased. denies any malaise. OBJECTIVE: Patient is a 89 year old female (from [facility]) with a PMHx of Afib (on eliquis) s/p pacemaker, CAD, HTN, HLD, CHF, mitral Insufficiency, Asthma, COPD, GERD, Chronic Anemia, Arthritis, total hysterectomy. Who presents to the ED with three weeks of vaginal bleeding with clots that increased over the last week. Patient reports using 1pad/hr. patient reports lower pelvic pressure and dysuria x 1 week. Patient reports having a similar prior episode one year ago which required blood transfusion, and she denies any weakness or lightheadedness at that time. Patient denies fever, chills, SOB, CP, palpitations, N/V, diarrhea, constipation. Patient noted to hae a prolapsed bladder, urology consulted. Vital Signs Period Temp Pulse Resp BP Sys/Spence Pulse Ox Last 24 Hr 98 F-98.6 F 59-79 18-20 109-138/47-69 97-97 Constitutional: Yes: No Distress, Calm Eyes: Yes: Conjunctiva Clear (pale), EOM Intact, PERRL HENT: Yes: Atraumatic, Normocephalic, Other (dry mucous membranes) Neck: Yes: WNL, Supple, Trachea Midline Cardiovascular: Yes: Regular Rate and Rhythm, S1, S2 Respiratory: Yes: Regular, CTA Bilaterally Gastrointestinal: Yes: Soft, Hypoactive Bowel Sounds, Tenderness (lower pelvic) Renal/: Yes: Vaginal Bleeding (with clots) Edema: LLE: 1+, RLE: 1+ Laboratory Results - last 24 hr 06/24/19 06/24/19 06/26/19 16:00 16:00 10:00 WBC 6.9 RBC 1.72 L Hgb 5.7 L* Hct 16.5 L D MCV 95.6 MCH 32.8 MCHC 34.3 RDW 20.3 H Plt Count 206 MPV 7.2 L Absolute Neuts (auto) 4.8 Neutrophils % 69.8 Lymphocytes % 21.5 Monocytes % 7.2 Eosinophils % 0.7 Basophils % 0.8 Nucleated RBC % 0 Sodium 143 Potassium 3.6 Chloride 106 Carbon Dioxide 29 Anion Gap 8 BUN 17.8 Creatinine 1.0 Est GFR (CKD-EPI)AfAm 58.25 Est GFR (CKD-EPI)NonAf 50.26 Random Glucose 91 Calcium 8.2 L Magnesium Total Bilirubin 0.2 AST 21 ALT 13 Alkaline Phosphatase 49 Creatine Kinase 52 Troponin I 0.03 Total Protein 5.4 L Albumin 2.4 L Blood Type A POSITIVE Antibody Screen Negative Crossmatch See Detail 06/27/19 06/27/19 06:31 06:31 WBC 5.0 RBC 2.68 L Hgb 8.4 L Hct 24.0 L D MCV 89.5 D MCH 31.5 MCHC 35.2 RDW 16.7 H Plt Count 180 MPV 6.9 L Absolute Neuts (auto) 2.9 Neutrophils % 57.8 Lymphocytes % 28.0 D Monocytes % 9.6 Eosinophils % 3.9 D Basophils % 0.7 Nucleated RBC % 0 Sodium 144 Potassium 3.9 Chloride 110 H Carbon Dioxide 28 Anion Gap 5 L BUN 16.1 Creatinine 1.2 Est GFR (CKD-EPI)AfAm 46.73 Est GFR (CKD-EPI)NonAf 40.32 Random Glucose 90 Calcium 7.5 L Magnesium 2.2 Total Bilirubin 0.5 AST 26 ALT 11 L Alkaline Phosphatase 42 L Creatine Kinase Troponin I Total Protein 4.6 L Albumin 2.2 L Blood Type Antibody Screen Crossmatch Active Medications Generic Name Dose Route Start Last Admin Trade Name Freq PRN Reason Stop Dose Admin Acetaminophen 650 mg 06/26/19 11:14 Tylenol - PO Q6H PRN PAIN LEVEL 4 - 6 Albuterol/Ipratropium 1 amp 06/25/19 05:27 Duoneb - NEB RQID PRN SHORTNESS OF BREATH Pantoprazole Sodium 40 mg 06/25/19 22:00 06/26/19 22:07 Protonix Iv IVPUSH 40 mg BID BISMARK Administration Tramadol HCl 25 mg 06/26/19 11:15 06/26/19 22:06 Ultram - PO 25 mg Q6H PRN Administration PAIN LEVEL 7 - 10 ASSESSMENT/PLAN: Problem List - Problems (1) GI bleed Assessment/Plan: seen by GI specialist and recommends outpatient follow up as bleeding is likely due to vaginal bleed on protonix bid will advance diet Code(s): K92.2 - GASTROINTESTINAL HEMORRHAGE, UNSPECIFIED (2) Afib Assessment/Plan: off eliquis for vaginal bleed rate controlled on metoprolol Code(s): I48.91 - UNSPECIFIED ATRIAL FIBRILLATION (3) Asthma Assessment/Plan: not in acute exacerbation continue home medications Code(s): J45.909 - UNSPECIFIED ASTHMA, UNCOMPLICATED (4) Symptomatic anemia Assessment/Plan: hmg/hct dropped to 5.7/16, and given two units of prbc with acceptable and stable response. patient for repeat cbc in a.m. or sooner if becomes symptomatic or has acute bleeding episode. Code(s): D64.9 - ANEMIA, UNSPECIFIED (5) Vaginal bleeding Assessment/Plan: s/p 2 units of blood, bleeding has been intermittent for the last month per patient but worsened over last few days prior to admission VENTILATION MECHANIC consulted Code(s): N93.9 - ABNORMAL UTERINE AND VAGINAL BLEEDING, UNSPECIFIED (6) Prolapse of bladder Assessment/Plan: urology consulted Code(s): [id number] - (7) DVT prophylaxis Assessment/Plan: eliquis on hold Code(s): Z29.9 - ENCOUNTER FOR PROPHYLACTIC MEASURES, UNSPECIFIED Visit type - Emergency Visit Emergency Visit: Yes ED Registration Date: 06/24/19 Care time: The patient presented to the Emergency Department on the above date and was hospitalized for further evaluation of their emergent condition. - New Patient This patient is new to me today: No - Critical Care Critical Care patient: No - Discharge Referral Referred to [facility] Med P.C.: No
[2019-06-27] MEDS: PANTOPRAZOLE SODIUM 40 MG VIAL IVPUSH SCH (11:15)
[2019-06-27 14:27] VITALS: BMI 26.8
[2019-06-27] MEDS ORDERED: PATIENT'S OWN MEDICATION (NON-FORMULARY) (Fluticasone Propionate [Flovent Diskus] 100 MCG) IH SCH (16:07)
--- NOTE | 2019-06-27 16:26 | CONSULT ---
Consult Consult Specialty:: UROLOGY Reason for Consultation:: Hematuria and bladder prolapse - History of Present Illness Chief Complaint: 89 Y/O Female patient w/hx afib on eliquis s/p pacemaker, CAD, HTN, HLD, CHF, mitral insufficiency, asthma, COPD, GERD, chronic anemia, arthritis, total hysterectomy, bilateral masectomy for cancer. p/w three weeks of vaginal bleeding worse over the last week. She denies any abdominal pain, weakness, confusion, chest pain, or sob. She endorses mild dysuria over the last week. . O/E soft lax abd. urethral caruncle with cystocele. BUN 16.1 S.Creat 1.2 WBC 5.0 HB 8.4 - Past Medical History PROPERTY PRESERVATION SPECIALIST: Yes: Other (depression) Cardio/Vascular: Yes: AFIB, CAD, CHF, HTN, Hyperlipdemia, SC, Mitral Insufficiency, Other (Atrial septal defect, intermittent palpitations, status post acute inferior wall myocardial infarction) Pulmonary: Yes: Asthma, COPD, Other (intrinsic bronchial asthma) Gastrointestinal: Yes: GERD, Other (esophageal dysmotility disorder with tertiary contractions, retention and reversed peristalsis, intermittent nausea and vomiting, history of ischemic colitis, s/p Chase fundoplasty, s/p H Pylori infection and gastritis, s/p cholecystectomy, appendectomy, intermittent mid and right lumbar abdominal pain, s/p ventral hernia repair,) Hepatobiliary: Yes: Cholelithiasis, Cholecystitis Infectious Disease: Yes: MRSA (left knee, acute) Psych: Yes: Depression Musculoskeletal: Yes: Chronic low back pain, Osteoarthritis, Other (s/ TKR x2, 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 b ilateral c7/c6 radiculopathy, left shoulder pain related to osteoarthritis) Rheumatology: Yes: Rheumatoid Arthritis ENT: Yes: Allergic Rhinitis Endocrine: Yes: Hypothyroidism, Osteopenia - Past Surgical History Past Surgical History: Yes: Appendectomy, Cataract Removal, Cholecystectomy, Hernia Repair, Joint Replacement, Permanent Pacemaker, Stent, Tonsillectomy - Alcohol/Substance Use Hx Alcohol Use: No History of Substance Use: reports: None - Smoking History Smoking history: Never smoked Have you smoked in the past 12 months: No Aproximately how many cigarettes per day: 0 - Social History ADL: Support Services History of Recent Travel: No Home Medications - Allergies Allergies/Adverse Reactions: Allergies Allergy/AdvReac Type Severity Reaction Status Date / Time alcohol Allergy Severe Difficulty Verified 06/24/19 15:29 Breathing ciprofloxacin [From Cipro] Allergy Severe Difficulty Verified 06/24/19 15:29 Breathing ciprofloxacin HCl Allergy Severe Difficulty Verified 06/24/19 15:29 [From Cipro] Breathing erythromycin base Allergy Severe Difficulty Verified 06/24/19 15:29 [Erythromycin Base] Breathing metronidazole [From Flagyl] Allergy Severe Difficulty Verified 06/24/19 15:29 Breathing Metronidazole HCl Allergy Severe Difficulty Verified 06/24/19 15:29 [From Flagyl] Breathing Penicillins Allergy Severe Difficulty Verified 06/24/19 15:29 Breathing tetracycline [Tetracycline] Allergy Severe Difficulty Verified 06/24/19 15:29 Breathing adhesive Allergy Verified 06/24/19 15:29 adhesive tape Allergy Verified 06/24/19 15:29 clindamycin Allergy Verified 06/24/19 15:29 codeine [Codeine] Allergy Verified 06/24/19 15:29 isosorbide mononitrate Allergy Verified 06/24/19 15:29 [From Ismo] meperidine HCl [From Demerol] Allergy Verified 06/24/19 15:29 nisoldipine Allergy Verified 06/24/19 15:29 povidone-iodine Allergy Verified 06/24/19 15:29 [From Betadine] prochlorperazine edisylate Allergy Verified 06/24/19 15:29 [From Compazine] prochlorperazine maleate Allergy Verified 06/24/19 15:29 [From Compazine] soap [From Betadine] Allergy Verified 06/24/19 15:29 EITHER Allergy Unknown Uncoded 06/24/19 15:29 - Home Medications Home Medications: Ambulatory Orders Albuterol Sulfate Inhaler - [Ventolin HFA Inhaler -] 2 puff IH ASDIR PRN 08/29/16 Ascorbate Calcium [Vitamin C] 500 mg PO DAILY 08/29/16 Cholecalciferol (Vitamin D3) [Vitamin D3] 5,000 unit PO DAILY 08/29/16 Docusate Sodium [Colace -] 200 mg PO HS 08/29/16 Fluticasone Prop 0.05% Nasal [Flonase -] 1 spray NS DAILY 08/29/16 Fluticasone Propionate [Flovent Diskus] 100 mcg IH DAILY 08/29/16 Folic Acid 1 mg PO DAILY 08/29/16 Furosemide [Lasix] 20 mg PO Q48H 08/29/16 Ipratropium Euless 15 ml NS BID 08/29/16 Metoprolol Succinate [Toprol XL -] 25 mg PO DAILY 08/29/16 Nitroglycerin Sublingual [Nitrostat -] 0.4 mg SL ASDIR PRN 08/29/16 Oxycodone HCl/Acetaminophen [Percocet 5-325 mg Tablet] 1 tab PO Q4H PRN 08/29/16 Pantoprazole Sodium [Protonix] 40 mg PO DAILY 08/29/16 Ranolazine [Ranexa] 500 mg PO BID 08/29/16 Rosuvastatin Calcium [Crestor] 40 mg PO DAILY 08/29/16 Sennosides [Senna] 8.6 mg PO HS 10/27/16 Acetaminophen [8Hr Arthritis Pain Relief] 650 mg PO QID PRN 07/02/18 Albuterol 2.5/Ipratropium 0.5 [Duoneb -] 1 amp NEB BID 07/02/18 Ferrous Sulfate 325 mg PO DAILY 07/02/18 Furosemide [Lasix] 40 mg PO DAILY 07/02/18 Guaifenesin/Pseudoephedrne HCl [Mucinex D ER 600-60 mg Tablet] 1 each PO BID 07/02/18 Multivit-Min/Iron Fum/Folic AC [Gznso-Tqyqjmx-Fonykkzr Tablet] 1 each PO DAILY 07/02/18 Ondansetron Injection [Zofran Injection] 4 mg IM Q8H PRN 07/02/18 Propylene Glycol/Peg 400 [Systane 0.3-0.4% Eye Drops] 5 ml OP BID 07/02/18 Sennosides [Senna] 8.6 mg PO DAILY 07/02/18 Apixaban [Eliquis -] 2.5 mg PO BID tablet 07/06/18 Albuterol Sulfate Inhaler - [Ventolin HFA Inhaler -] 2 puff IN Q6H PRN 06/25/19 Ferrous Sulfate 325 mg PO DAILY 06/25/19 Ipratropium/Albuterol Sulfate [Iprat-Albut 0.5-3(2.5) mg/3 ml] 3 ml IH QID PRN 06/25/19 Lactulose 20 gm PO BID 06/25/19 Montelukast Sodium [Singulair] 10 mg PO HS 06/25/19 Propylene Glycol/Peg 400 [Systane Gel Eye Drops] 10 ml OP QID 06/25/19 Physical Exam Vital Signs: Vital Signs Temperature 98 F 06/27/19 06:00 Pulse Rate 59 L 06/27/19 06:00 Respiratory Rate 18 06/27/19 06:00 Blood Pressure 125/69 06/27/19 06:00 O2 Sat by Pulse Oximetry (%) 97 06/27/19 06:00 Labs: CBC, BMP 06/27/19 06:31 06/27/19 06:31 Assessment/Plan Urethral caruncle, mass?? Cystocele Plan: Renal and pelcic U/S will do Cystoscopy and excision of urethral caruncle, mass?? when her medical condition stable
[2019-06-27] MEDS: traMADol HCL 50 MG TABLET PO PRN (19:38)
[2019-06-27] MEDS: ACETAMINOPHEN 325 MG TABLET (FP) PO PRN (20:53)
[2019-06-27] MEDS: RANOLAZINE E.R. 500 MG TABLET (FP) PO SCH (21:05)
[2019-06-27] MEDS: MONTELUKAST NA 10 MG TABLET PO SCH (21:05)
[2019-06-27] MEDS: MOMETASONE FUROATE 110 MCG/IH INHALER IH SCH (23:20)
--- NOTE | 2019-06-28 09:59 | PN ---
Progress Note (short form) - Note Progress Note: Physical Exam: SUBJECTIVE: Patient seen and examined. Reports she is feeling okay. States vaginal bleeding stopped 2 days ago. having diarrhea though she states this is common for her due to her multiple gi issues. Tolerating PO, no n/v. Does not ambulate due to severe arthritis. Objective: Vital Signs Temp 98 F 06/28/19 06:00 Pulse 60 06/28/19 06:00 Resp 20 06/28/19 06:00 BP 129/56 L 06/28/19 06:00 Pulse Ox 99 06/28/19 06:00 Intake & Output 06/27/19 06/27/19 06/28/19 11:59 23:59 11:59 Intake Total 0 200 Balance 0 200 Weight 161 lb Intake: IV 0 saline lock 0 Oral 200 Other: Voiding Method Incontinent Incontinent Incontinent # Unmeasured Voids Void 1 Bowel Movement Yes Yes # Bowel Movements 1 1 Height 5 ft 5 in Body Mass Index (BMI) 26.8 General: awake, alert, nad Eyes: Conjunctiva Clear (pale), EOM Intact, PERRL HENT: Atraumatic, Normocephalic Neck: Trachea Midline Cardiovascular: Regular Rate and Rhythm, S1, S2 Respiratory: CTA Bilaterally, no wheeing/ rhonchi noted Gastrointestinal: Soft, nt/nd, well healed midline incision Laboratory Results - last 24 hr 06/24/19 06/24/19 06/26/19 16:00 16:00 10:00 WBC 6.9 RBC 1.72 L Hgb 5.7 L* Hct 16.5 L D MCV 95.6 MCH 32.8 MCHC 34.3 RDW 20.3 H Plt Count 206 MPV 7.2 L Absolute Neuts (auto) 4.8 Neutrophils % 69.8 Lymphocytes % 21.5 Monocytes % 7.2 Eosinophils % 0.7 Basophils % 0.8 Nucleated RBC % 0 Sodium 143 Potassium 3.6 Chloride 106 Carbon Dioxide 29 Anion Gap 8 BUN 17.8 Creatinine 1.0 Est GFR (CKD-EPI)AfAm 58.25 Est GFR (CKD-EPI)NonAf 50.26 Random Glucose 91 Calcium 8.2 L Magnesium Total Bilirubin 0.2 AST 21 ALT 13 Alkaline Phosphatase 49 Creatine Kinase 52 Troponin I 0.03 Total Protein 5.4 L Albumin 2.4 L Blood Type A POSITIVE Antibody Screen Negative Crossmatch See Detail 06/27/19 06/27/19 06:31 06:31 WBC 5.0 RBC 2.68 L Hgb 8.4 L Hct 24.0 L D MCV 89.5 D MCH 31.5 MCHC 35.2 RDW 16.7 H Plt Count 180 MPV 6.9 L Absolute Neuts (auto) 2.9 Neutrophils % 57.8 Lymphocytes % 28.0 D Monocytes % 9.6 Eosinophils % 3.9 D Basophils % 0.7 Nucleated RBC % 0 Sodium 144 Potassium 3.9 Chloride 110 H Carbon Dioxide 28 Anion Gap 5 L BUN 16.1 Creatinine 1.2 Est GFR (CKD-EPI)AfAm 46.73 Est GFR (CKD-EPI)NonAf 40.32 Random Glucose 90 Calcium 7.5 L Magnesium 2.2 Total Bilirubin 0.5 AST 26 ALT 11 L Alkaline Phosphatase 42 L Creatine Kinase Troponin I Total Protein 4.6 L Albumin 2.2 L Blood Type Antibody Screen Crossmatch Active Medications Generic Name Dose Route Start Last Admin Trade Name Freq PRN Reason Stop Dose Admin Acetaminophen 650 mg 06/26/19 11:14 Tylenol - PO Q6H PRN PAIN LEVEL 4 - 6 Albuterol/Ipratropium 1 amp 06/25/19 05:27 Duoneb - NEB RQID PRN SHORTNESS OF BREATH Pantoprazole Sodium 40 mg 06/25/19 22:00 06/26/19 22:07 Protonix Iv IVPUSH 40 mg BID BISMARK Administration Tramadol HCl 25 mg 06/26/19 11:15 06/26/19 22:06 Ultram - PO 25 mg Q6H PRN Administration PAIN LEVEL 7 - 10 ASSESSMENT/PLAN: Problem List - Problems (1) Vaginal vs Gu bleeding Assessment/Plan: seen by GI specialist and recommends outpatient follow up as bleeding is likely Gi/ in nature on protonix bid tolerating diet Code(s): K92.2 - GASTROINTESTINAL HEMORRHAGE, UNSPECIFIED (2) Afib Assessment/Plan: off eliquis for vaginal bleed rate controlled on metoprolol Code(s): I48.91 - UNSPECIFIED ATRIAL FIBRILLATION (3) Asthma Assessment/Plan: not in acute exacerbation continue home medications Code(s): J45.909 - UNSPECIFIED ASTHMA, UNCOMPLICATED (4) Symptomatic anemia Assessment/Plan: hgb/hct dropped to 5.7/16, given two units of prbc with acceptable and stable response. repeat cbc ordered for this AM and tomorrow Code(s): D64.9 - ANEMIA, UNSPECIFIED (5) Vaginal bleeding Assessment/Plan: CLIENT SERVICES REPRESENTATIVE consulted Code(s): N93.9 - ABNORMAL UTERINE AND VAGINAL BLEEDING, UNSPECIFIED (6) Prolapse of bladder Assessment/Plan: urology consulted: Urethral caruncle, mass?? Cystocele Plan for renal and pelvic U/S Cystoscopy and excision of urethral caruncle, mass?? when medical condition stable Code(s): GPV1937 - (7) DVT prophylaxis Assessment/Plan: eliquis on hold scds Code(s): Z29.9 - ENCOUNTER FOR PROPHYLACTIC MEASURES, UNSPECIFIED d/w attending Dr Vázquez
[2019-06-28] MEDS: metoPROLOL SUCCINATE 25 MG TAB.SR.24H (FP) PO SCH (10:44)
[2019-06-28] MEDS: RANOLAZINE E.R. 500 MG TABLET (FP) PO SCH ×2 (10:44→21:37)
[2019-06-28] MEDS: ROSUVASTATIN CA 20 MG TABLET (FP) PO SCH (10:45)
[2019-06-28] MEDS: PANTOPRAZOLE 40 MG TABLET PO SCH (10:45)
[2019-06-28] MEDS: FUROSEMIDE 40 MG TABLET (FP) PO SCH (10:45)
[2019-06-28 11:13] LABS: BASO % 0.5 % (0-2.0); EOS % 5.2 % (0-4.5); HEMATOCRIT 27.5 % (32.4-45.2); HEMOGLOBIN 9.3 GM/dL (10.7-15.3); LYMPH % 21.7 % (8-40); MCH 31.8 pg (25.7-33.7); MCHC 33.9 g/dl (32.0-36.0); MEAN CELL VOLUME 93.8 fl (80-96); MONO % 7.7 % (3.8-10.2); NEUT % 64.9 % (42.8-82.8); PLATELET COUNT 207 K/MM3 (134-434); RBC 2.93 M/mm3 (3.60-5.2); RDW 17.7 % (11.6-15.6); WHITE BLOOD COUNT 5.5 K/mm3 (4.0-10.0)
[2019-06-28 11:39] LABS: ALBUMIN 2.5 g/dl (3.4-5.0); BILIRUBIN,TOTAL 0.6 mg/dL (0.2-1); BLOOD UREA NITROGEN 11.6 mg/dL (7-18); CALCIUM 7.8 mg/dL (8.5-10.1); CREATININE 0.9 mg/dL (0.55-1.3); MAGNESIUM 2.4 mg/dL (1.8-2.4); POTASSIUM 3.4 mmol/L (3.5-5.1); TOT PROT 5.2 g/dl (6.4-8.2)
[2019-06-28] MEDS ORDERED: POTASSIUM CHLORIDE TABS 20 MEQ TABLET.ER (FP) PO ONE ×2 (11:56→17:45)
--- NOTE | 2019-06-28 14:30 | PN ---
Progress Note (short form) - Note Progress Note: UROLOGY NOTE NPO after midnight for tomorrow cystoscopy and excision of urethral mass
[2019-06-28] MEDS: MONTELUKAST NA 10 MG TABLET PO SCH (21:37)
[2019-06-28] MEDS: traMADol HCL 50 MG TABLET PO PRN (21:37)
[2019-06-28] MEDS: MOMETASONE FUROATE 110 MCG/IH INHALER IH SCH (22:37)
[2019-06-29 08:42] LABS: BASO % 0.6 % (0-2.0); EOS % 5.1 % (0-4.5); HEMOGLOBIN 9.2 GM/dL (10.7-15.3); LYMPH % 23.3 % (8-40); MCH 32.4 pg (25.7-33.7); MCHC 34.1 g/dl (32.0-36.0); MEAN CELL VOLUME 95.1 fl (80-96); MEAN PLT VOLUME 6.9 fl (7.5-11.1); MONO % 8.9 % (3.8-10.2); NEUT % 62.1 % (42.8-82.8); PLATELET COUNT 219 K/MM3 (134-434); RBC 2.84 M/mm3 (3.60-5.2); RDW 17.4 % (11.6-15.6); WHITE BLOOD COUNT 5.5 K/mm3 (4.0-10.0)
[2019-06-29 09:08] LABS: ALBUMIN 2.4 g/dl (3.4-5.0); BILIRUBIN,TOTAL 0.6 mg/dL (0.2-1); CALCIUM 7.5 mg/dL (8.5-10.1); MAGNESIUM 2.3 mg/dL (1.8-2.4); POTASSIUM 3.9 mmol/L (3.5-5.1); TOT PROT 5.2 g/dl (6.4-8.2)
[2019-06-29] MEDS: ROSUVASTATIN CA 20 MG TABLET (FP) PO SCH (09:34)
[2019-06-29] MEDS: PANTOPRAZOLE 40 MG TABLET PO SCH (09:35)
[2019-06-29] MEDS: metoPROLOL SUCCINATE 25 MG TAB.SR.24H (FP) PO SCH ×2 (09:35→10:36)
[2019-06-29] MEDS: RANOLAZINE E.R. 500 MG TABLET (FP) PO SCH ×2 (09:35→21:51)
[2019-06-29] MEDS: FUROSEMIDE 40 MG TABLET (FP) PO SCH (09:35)
--- NOTE | 2019-06-29 11:38 | PN ---
Progress Note (short form) - Note Progress Note: Patient seen and examined. Reports she is feeling okay. States vaginal bleeding stopped 2 days ago. having diarrhea though she states this is common for her due to her multiple gi issues. Tolerating PO, no n/v. Does not ambulate due to severe arthritis. Vital Signs Period Temp Pulse Resp BP Sys/Spence Pulse Ox Last 24 Hr 97.9 F-98 F 65-65 18-18 112-118/49-61 99-99 Constitutional: Yes: No Distress, Calm Eyes: Yes: Conjunctiva Clear (pale), EOM Intact, PERRL HENT: Yes: Atraumatic, Normocephalic, Other (dry mucous membranes) Neck: Yes: WNL, Supple, Trachea Midline Cardiovascular: Yes: Regular Rate and Rhythm, S1, S2 Respiratory: Yes: Regular, CTA Bilaterally Gastrointestinal: Yes: Soft, Hypoactive Bowel Sounds, Tenderness (lower pelvic) Renal/: Yes: Vaginal Bleeding (with clots) Edema: LLE: 1+, RLE: 1+ CBC, BMP 06/29/19 08:08 06/29/19 08:08 Assessment and plan bleeding rule out possible GI bleeding or urinary bleeding or bleeding. Seen by GI she is off Eliquis at this time she is going for cystoscopy for possible excision of some mass in the bladder perfect She received 2 units of blood hemoglobin is stable now at 9.2. Atrial fibrillation off Eliquis due to bleeding rate it controlled Asthma she is not having any wheezing continue with her home medication Visit type - Emergency Visit Emergency Visit: Yes ED Registration Date: 06/24/19 Care time: The patient presented to the Emergency Department on the above date and was hospitalized for further evaluation of their emergent condition. - New Patient This patient is new to me today: Yes Date on this admission: 06/29/19 - Critical Care Critical Care patient: No - Discharge Referral Referred to [facility] Med P.C.: No
[2019-06-29] MEDS ORDERED: ceFAZolin SODIUM 1 GM VIAL IVPB ONE (13:08)
[2019-06-29] MEDS ORDERED: PROMETHAZINE HCL 25 MG/1 ML VIAL IVPUSH PRN ×2 (14:25→14:30)
[2019-06-29] MEDS ORDERED: ONDANSETRON 4 MG/2 ML VIAL IVPUSH PRN (14:25)
[2019-06-29] MEDS ORDERED: MIDAZOLAM HCL 2 MG/2 ML SINGLE DOSE VIAL ONE (14:41)
--- NOTE | 2019-06-29 15:22 | CONS ---
DATE OF CONSULTATION: DATE OF DICTATION: 06/29/2019 Patient is an 89-year-old female with history of gross vaginal bleeding and possible gross hematuria. She does have a history of atrial fibrillation on Eliquis. She is status post a pacemaker. She also has history of coronary artery disease, high blood pressure, dyslipidemia, congestive heart failure, mitral insufficiency, asthma, COPD, GERD, chronic anemia, arthritis. She is status post total hysterectomy, bilateral mastectomies for cancer. She claims that she first noticed vaginal bleeding 3 weeks ago and this has been getting worse. She states that at times blood clots come out and the blood is fresh. She denies any abdominal pain, trauma. She denies any chest pain or shortness of breath. She does have some dysuria. PHYSICAL EXAMINATION: Vital Signs: Presently she is afebrile. Her blood pressure is 125/69. General: Reveals a frail elderly female pleasant in no apparent distress. Abdomen: Soft. There is no CVA tenderness. No hepatosplenomegaly. Pelvic: Revealed a large extraurethral hemorrhagic lesion, most likely a bleeding urethral caruncle. 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 Extremities: Revealed full range of motion with no cyanosis, clubbing or edema. Her BUN was 16.1 and creatinine 1.2. Her white count is 5000. Her hemoglobin was 8.4. She also has history of depression. MEDICATIONS: She is on multiple medications. Patient is on an albuterol inhaler. She also takes vitamin C and vitamin D. She is on Flonase, Flovent, Lasix, folic acid, metoprolol, nitroglycerin p.r.n., oxycodone, Protonix, Ranexa, Crestor, Tylenol p.r.n., albuterol, iron, antitussive, Zofran on a p.r.n. basis, also senna and MiraLAX on a p.r.n. basis. She also takes Eliquis 2.5 mg daily. ALLERGIES: She has multiple allergies including severe allergies to CIPRO, ERYTHROMYCIN, FLAGYL, PENICILLIN and TETRACYCLINE. She is also allergic to ALCOHOL. She feels she is also allergic to ADHESIVE TAPE, CLINDAMYCIN, CODEINE, NITRATES, DEMEROL, BETADINE and NISOLDIPINE. She states she also gets sick when she takes COMPAZINE. 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 PLAN: A cystoscopy and excision of urethral mass. This was explained in detail to patient and she agrees. PB HYMAN M.D. [id number]
[2019-06-29] MEDS ORDERED: ceFAZolin SODIUM 1 GM VIAL ONE (15:24)
[2019-06-29] MEDS ORDERED: BACITRACIN 15 GM TUBE TOPICAL OINTMENT ONE (15:25)
[2019-06-29] MEDS ORDERED: BACITRACIN 15 GM TUBE TOPICAL OINTMENT TP ONE (15:30)
--- NOTE | 2019-06-29 15:38 | OP ---
Operative Note - Note: Operative Date: 06/29/19 Pre-Operative Diagnosis: gross hematuria, vaginal bleeding Operation: distal urethrectomy and excision of urethral tumor and cysto Findings: large,bleeding urethral lesion Post-Operative Diagnosis: Same as Pre-op Surgeon: Gianfranco Mack Anesthesia: Spinal Specimens Removed: urine, distal urethra and urethral tumor Estimated Blood Loss (mls): 50 Drains & Tubes with Location: vaginal packing Drains, Volume Out (mls): 26 Blood Volume Replaced (mls): 0 Fluid Volume Replaced (mls): 0 Operative Report Dictated: Yes
--- NOTE | 2019-06-29 16:25 | OP ---
DATE OF OPERATION: 06/29/2019 PREOPERATIVE DIAGNOSIS: Gross hematuria, urethral lesion. POSTOPERATIVE DIAGNOSIS: Large urethral lesion. OPERATIVE PROCEDURE: Distal urethrectomy, urethroplasty, cystoscopy. ANESTHESIA: Spinal. DESCRIPTION OF PROCEDURE: Under above-stated anesthesia, patient is prepped and draped in the usual sterile manner. She is placed in the dorsal lithotomy position. Inspection of the vaginal introitus revealed vaginal stenosis. There was a 4-cm hemorrhagic polypoid lesion protruding from the external urethral meatus. Wide excision of the distal urethra, including the mass, was performed with cautery. Hemostasis was secured with electrocoagulation. Mucous membrane from the urethra to the meatus was approximated using 5-0 Vicryl suture ligatures. No active bleeding was noted. Cystoscopy revealed a grade 2 trabeculation of the bladder. There was squamous metaplasia of the trigone. No lesions were noted. No calculi were seen. Ureteral orifices were within normal limits with efflux of clear urine. Dome and lateral ribeiro were clear. The bladder was emptied. The scope was removed. A 26-Armenian 10-mL Riojas was placed into the bladder via the urethra. The vaginal orifice was then packed with Iodoform gauze. The Riojas was connected to a leg bag. The patient tolerated the procedure well. She returned to the recovery room in good condition. Sofia [id number]
[2019-06-29] MEDS: traMADol HCL 50 MG TABLET PO PRN (17:24)
[2019-06-29] MEDS: oxyCODONE HCL 5 MG TABLET PO PRN (20:33)
[2019-06-29] MEDS: MONTELUKAST NA 10 MG TABLET PO SCH (21:51)
[2019-06-29] MEDS: MOMETASONE FUROATE 110 MCG/IH INHALER IH SCH (21:52)
[2019-06-30] MEDS: oxyCODONE HCL 5 MG TABLET PO PRN (05:55)
[2019-06-30] MEDS ORDERED: CEFAZOLIN 1 GM/D5W 1 GM/50 ML BAG IVPB SCH (10:00)
[2019-06-30] MEDS: metoPROLOL SUCCINATE 25 MG TAB.SR.24H (FP) PO SCH (12:55)
[2019-06-30] MEDS: FUROSEMIDE 40 MG TABLET (FP) PO SCH (12:55)
[2019-06-30] MEDS: PANTOPRAZOLE 40 MG TABLET PO SCH (12:55)
[2019-06-30] MEDS: ROSUVASTATIN CA 20 MG TABLET (FP) PO SCH (12:56)
[2019-06-30] MEDS: RANOLAZINE E.R. 500 MG TABLET (FP) PO SCH ×2 (12:56→21:01)
--- NOTE | 2019-06-30 18:00 | PN ---
Physical Exam: Subjective: Patient seen and examined at bedside, no complaints, feels OK. S/p urethral mass removal POD#2, VSS. Objective: GA comfortable, AAox3 HEENT NC/AT, EOMI Chest CTAB, no crackles or wheezing CVS Irregularly irregular, MICHELLE+ Abd Soft, NT, ND, BS+ Ext No LE edema no suprapubic tenderness, vaginal packing+, fairchild to gravity draining clear urine Vital Signs - 24 hr 06/29/19 06/29/19 06/30/19 21:00 22:00 01:45 Temperature 97.9 F 98 F Pulse Rate 64 67 Respiratory 18 18 18 Rate Blood Pressure 109/45 L 97/41 L O2 Sat by Pulse 96 Oximetry (%) 06/30/19 06/30/19 06:00 10:00 Temperature 98.3 F 97.9 F Pulse Rate 67 66 Respiratory 18 18 Rate Blood Pressure 104/43 L 115/57 L O2 Sat by Pulse Oximetry (%) Current Medications Generic Name Dose Route Start Last Admin Trade Name Freq PRN Reason Stop Dose Admin Acetaminophen 650 mg 06/26/19 11:14 06/27/19 20:53 Tylenol - PO 650 mg Q6H PRN Administration PAIN LEVEL 4 - 6 Furosemide 40 mg 06/28/19 10:00 06/30/19 12:55 Lasix - PO 40 mg DAILY BISMARK Administration Cefazolin Sodium 1 gm in 50 mls @ 100 mls/hr 06/30/19 10:00 Ancef 1 Gm Premixed Ivpb - IVPB 07/02/19 23:59 DAILY BISMARK Metoprolol Succinate 25 mg 06/28/19 10:00 06/30/19 12:55 Toprol Xl - PO 25 mg DAILY BISMARK Administration Mometasone Furoate 1 puff 06/27/19 22:00 06/29/19 21:52 Asmanex 110mcg - IH 1 puff HS BISMARK Administration Montelukast Sodium 10 mg 06/27/19 22:00 06/29/19 21:51 Singulair - PO 10 mg HS BISMARK Administration Ondansetron HCl 4 mg 06/29/19 14:25 Zofran Injection IVPUSH Q6H PRN NAUSEA AND/OR VOMITING Pantoprazole Sodium 40 mg 06/28/19 10:00 06/30/19 12:55 Protonix - PO 40 mg DAILY BISMARK Administration Ranolazine 500 mg 06/27/19 22:00 06/30/19 12:56 Ranexa - PO 500 mg BID BISMARK Administration Rosuvastatin Calcium 40 mg 06/28/19 10:00 06/30/19 12:56 Crestor - PO 40 mg DAILY BISMARK Administration Current Medications Generic Name Dose Route Start Last Admin Trade Name Freq PRN Reason Stop Dose Admin Acetaminophen 650 mg 06/26/19 11:14 06/27/19 20:53 Tylenol - PO 650 mg Q6H PRN Administration PAIN LEVEL 4 - 6 Furosemide 40 mg 06/28/19 10:00 06/30/19 12:55 Lasix - PO 40 mg DAILY BISMARK Administration Cefazolin Sodium 1 gm in 50 mls @ 100 mls/hr 06/30/19 10:00 Ancef 1 Gm Premixed Ivpb - IVPB 07/02/19 23:59 DAILY BISMARK Metoprolol Succinate 25 mg 06/28/19 10:00 06/30/19 12:55 Toprol Xl - PO 25 mg DAILY BISMARK Administration Mometasone Furoate 1 puff 06/27/19 22:00 06/29/19 21:52 Asmanex 110mcg - IH 1 puff HS BISMARK Administration Montelukast Sodium 10 mg 06/27/19 22:00 06/29/19 21:51 Singulair - PO 10 mg HS BISMARK Administration Ondansetron HCl 4 mg 06/29/19 14:25 Zofran Injection IVPUSH Q6H PRN NAUSEA AND/OR VOMITING Pantoprazole Sodium 40 mg 06/28/19 10:00 06/30/19 12:55 Protonix - PO 40 mg DAILY BISMARK Administration Ranolazine 500 mg 06/27/19 22:00 06/30/19 12:56 Ranexa - PO 500 mg BID BISMARK Administration Rosuvastatin Calcium 40 mg 06/28/19 10:00 06/30/19 12:56 Crestor - PO 40 mg DAILY BISMARK Administration A/P: 89 F h/o Afib on AC, s/p pacemaker, CAD, HTN, HLD, CHF, mitral insufficiency, asthma, COPD, GERD, chronic anemia, arthritis, total hysterectomy, bilateral masectomy for cancer presents with urethral mass s/p resection. Urethral mass s/p resection Cefazolin for abx coverage (may complete 7 days of Keflex at DC), will start Ditropan XL 10mg daily to prevent bladder spasms Vaginal packing to be removed prior to DC, and pt. to be DC with fairchild to leg bag Follow up with outpatient Urology clinic next , 07/06, Dr. Lazarus Mack Urology consult: Dr Mack Afib on AC s/p pacemaker restart Eliquis for Afib monitor CBC in AM CAD cont. BB, statin denies CP HTN cont. BP meds as tolerated HFpEF not in acute exacerbation Asthma/COPD not in acute exacerbation Albuterol PRN GERD cont. 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 - New Patient This patient is new to me today: Yes Date on this admission: 06/30/19 - Critical Care Critical Care patient: No - Discharge Referral Referred to [facility] No
[2019-06-30] MEDS: MOMETASONE FUROATE 110 MCG/IH INHALER IH SCH (21:00)
[2019-06-30] MEDS: APIXABAN 2.5 MG TABLET PO SCH (21:01)
[2019-06-30] MEDS: MONTELUKAST NA 10 MG TABLET PO SCH (21:01)
[2019-06-30] MEDS ORDERED: APIXABAN 5 MG TABLET PO SCH (22:00)
[2019-07-01 08:32] LABS: BASO % 0.2 % (0-2.0); EOS % 0.9 % (0-4.5); HEMATOCRIT 26.5 % (32.4-45.2); HEMOGLOBIN 8.8 GM/dL (10.7-15.3); LYMPH % 10.3 % (8-40); MCH 31.9 pg (25.7-33.7); MCHC 33.2 g/dl (32.0-36.0); MEAN CELL VOLUME 96.2 fl (80-96); MONO % 5.3 % (3.8-10.2); NEUT % 83.3 % (42.8-82.8); PLATELET COUNT 189 K/MM3 (134-434); RBC 2.75 M/mm3 (3.60-5.2); RDW 20.1 % (11.6-15.6); WHITE BLOOD COUNT 8.7 K/mm3 (4.0-10.0)
[2019-07-01 09:32] LABS: ALBUMIN 2.2 g/dl (3.4-5.0); BILIRUBIN,TOTAL 0.8 mg/dL (0.2-1); BLOOD UREA NITROGEN 16.1 mg/dL (7-18); CALCIUM 7.8 mg/dL (8.5-10.1); CREATININE 1.2 mg/dL (0.55-1.3); TOT PROT 5.2 g/dl (6.4-8.2)
[2019-07-01] MEDS: APIXABAN 2.5 MG TABLET PO SCH (11:09)
[2019-07-01] MEDS: metoPROLOL SUCCINATE 25 MG TAB.SR.24H (FP) PO SCH (11:09)
[2019-07-01] MEDS: PANTOPRAZOLE 40 MG TABLET PO SCH (11:09)
[2019-07-01] MEDS: RANOLAZINE E.R. 500 MG TABLET (FP) PO SCH (11:09)
[2019-07-01] MEDS: ROSUVASTATIN CA 20 MG TABLET (FP) PO SCH (11:09)
[2019-07-01] MEDS: FUROSEMIDE 40 MG TABLET (FP) PO SCH (11:10)
[2019-07-01] MEDS: ACETAMINOPHEN 325 MG TABLET (FP) PO PRN (11:38)
[2019-07-01] MEDS ORDERED: CEPHALEXIN MONOHYDRATE 500 MG CAPSULE (UD) PO ONE (13:23)
--- NOTE | 2019-07-01 13:26 | PN ---
Progress Note (short form) - Note Progress Note: MEDICINE NOTE SUBJECTIVE: Patient seen and examined. Reports she is feeling okay. No further vaginal bleeding. Tolerating PO, no n/v. Denies cp/sob, fevers. Objective: Vital Signs Temp 98.6 F 06/30/19 22:00 Pulse 64 06/30/19 22:00 Resp 20 07/01/19 09:00 BP 116/68 06/30/19 22:00 Pulse Ox 100 07/01/19 09:00 Intake & Output 06/30/19 07/01/19 07/01/19 23:59 11:59 23:59 Intake Total 0 Output Total 900 200 Balance -900 -200 Intake: IV 0 saline lock 0 IVPB 0 TPN/PPN 0 Output: Urine 900 200 Fairchild 900 200 Other: Voiding Method Indwelling Catheter Indwelling Catheter CBC, BMP 07/01/19 08:00 07/01/19 08:00 General: awake, alert, nad Eyes: Conjunctiva Clear (pale), EOM Intact, PERRL HENT: Atraumatic, Normocephalic Neck: Trachea Midline Cardiovascular: Regular Rate and Rhythm, S1, S2 Respiratory: CTA Bilaterally, no wheeing/ rhonchi noted Gastrointestinal: Soft, nt/nd, well healed midline incision : fairchild in place, packing visible and dry, no bleeding noted from urethra or vagina. packing removed by JANEEN Yao, no bleeding noted ASSESSMENT/PLAN: 89 y/o F w/ PMHx Afib (on eliquis) s/p pacemaker, CAD, HTN, HLD, CHF, Mitral Insufficiency, Asthma, COPD, GERD, Chronic Anemia, Arthritis, now POD 2 s/p distal urethrectomy and excision of urethral tumor and cysto Doing well Plan for discharge today to [facility] Will get one dose Keflex 500mg prior to discharge, continue abx for 7 days. Problem List Afib Assessment/Plan: can resume Eliquis rate controlled-on metoprolol Code(s): I48.91 - UNSPECIFIED ATRIAL FIBRILLATION Asthma Assessment/Plan: not in acute exacerbation continue home medications Code(s): J45.909 - UNSPECIFIED ASTHMA, UNCOMPLICATED Symptomatic anemia Assessment/Plan: hgb/hct dropped to 5.7/16, given two units of prbc with acceptable and stable response. Code(s): D64.9 - ANEMIA, UNSPECIFIED DVT prophylaxis Assessment/Plan: scds Code(s): Z29.9 - ENCOUNTER FOR PROPHYLACTIC MEASURES, UNSPECIFIED d/w attending Dr Vázquez
[2019-07-01 14:07] VITALS: BP 99/59; PULSE 67; TEMP 98.2
--- NOTE | 2019-07-01 14:21 | DS ---
Physical Exam: SUBJECTIVE: Patient seen and examined. Reports she is feeling okay. No further vaginal bleeding. Tolerating PO, no n/v. Denies cp/sob, fevers. OBJECTIVE: Vital Signs Period Temp Pulse Resp BP Sys/Spence Pulse Ox Last 24 Hr 98.1 F-98.6 F 63-69 18-20 99-116/53-68 98-100 PHYSICAL EXAM General: awake, alert, nad Eyes: Conjunctiva Clear (pale), EOM Intact, PERRL HENT: Atraumatic, Normocephalic Neck: Trachea Midline Cardiovascular: Regular Rate and Rhythm, S1, S2 Respiratory: CTA Bilaterally, no wheeing/ rhonchi noted Gastrointestinal: Soft, nt/nd, well healed midline incision : fairchild in place, packing visible and dry, no bleeding noted from urethra or vagina. Packing removed by JANEEN Allen, no bleeding noted. LABS Laboratory Results - last 24 hr 07/01/19 07/01/19 08:00 08:00 WBC 8.7 RBC 2.75 L Hgb 8.8 L Hct 26.5 L MCV 96.2 H MCH 31.9 MCHC 33.2 RDW 20.1 H Plt Count 189 MPV 7.0 L Absolute Neuts (auto) 7.2 Neutrophils % 83.3 H D Lymphocytes % 10.3 D Monocytes % 5.3 Eosinophils % 0.9 D Basophils % 0.2 Nucleated RBC % 0 Sodium 141 Potassium 4.0 Chloride 106 Carbon Dioxide 30 Anion Gap 5 L BUN 16.1 Creatinine 1.2 Est GFR (CKD-EPI)AfAm 46.73 Est GFR (CKD-EPI)NonAf 40.32 Random Glucose 125 H Calcium 7.8 L Total Bilirubin 0.8 AST 24 ALT 9 L Alkaline Phosphatase 53 Total Protein 5.2 L Albumin 2.2 L HOSPITAL COURSE: The patient was admitted to the Med-Surg Unit for evaluation of a three week history of vaginal bleeding. Pt was found to be anemic with a hemoglobin of 5.7, two units pRBC were transfused with appropriate response. Gastroenterology consult was placed, no concern for GI bleed. Urology consulted, pt found to have cystocele, also concern for urethral caruncle/mass. Bladder ultrasound completed per Urology reccs, no discrete mass or calculus noted. Patient taken to OR by Urology for cystoscopy on 06/28, had successful distal urethrectomy and excision of urethral tumor. Fairchild placed in OR and plan for discharge with fairchild in place. Eliquis restarted prior to discharge. Patient initiated on Keflex for a 7 day course. Pain management was achieved with a narcotic and non-narcotic oral regimen. DVT prophylaxis was achieved with SCDs. The patient was discharged to [facility]. The discharge instructions and follow up plan were reviewed with the patient. All questions answered. Above plan discussed with Dr. Vázquez and agreed. Date of Admission:06/24/19 Date of Discharge: 07/01/19 Minutes to complete discharge: 30 Discharge Summary Problems reviewed: Yes Reason For Visit: TRANSFUSION DEPENDENT ANEMIA, VAGINAL BLEEDING Current Active Problems Afib (Acute) Asthma (Acute) COPD (chronic obstructive pulmonary disease) (Acute) DVT prophylaxis (Acute) GERD (gastroesophageal reflux disease) (Acute) GI bleed (Acute) HLD (hyperlipidemia) (Acute) HTN (hypertension) (Acute) Prolapse of bladder (Acute) Symptomatic anemia (Acute) Transfusion-dependent anemia (Acute) Vaginal bleeding (Acute) Vaginal bleeding (Acute) Condition: Good - Instructions Diet, Activity, Other Instructions: You were admitted to the hospital for surgical removal of a mass from your urinary tract. You will be discharged home with a fairchild to a leg bag and you must follow up with Dr. Lazarus Mack (urology clinic) on , 07/07/2019. Please take Tylenol if you experience any pain. You may resume all of your home medications as prescribed, if you experience further bleeding please stop your Eliquis and contact your doctor right away. If you feel fever, chills, cough, shortness of breath, chest pain, dizziness, fall, bleeding please contact your primary care doctor immediately. Please make sure administer 500mg Keflex bid. Pt received one dose Keflex 500mg on 06/30 prior to leaving the hospital. Administer next dose on 06/30 at night. Continue Eliquis Referrals: Real Zlueta MD [Primary Care Provider] - Gianfranco Mack MD [Staff Physician] - Disposition: HOME - Home Medications Comprehensive Discharge Medication List: Ambulatory Orders Ascorbate Calcium [Vitamin C] 500 mg PO DAILY 08/29/16 Cholecalciferol (Vitamin D3) [Vitamin D3] 5,000 unit PO DAILY 08/29/16 Docusate Sodium [Colace -] 200 mg PO HS 08/29/16 Fluticasone Prop 0.05% Nasal [Flonase -] 1 spray NS DAILY 08/29/16 Fluticasone Propionate [Flovent Diskus] 100 mcg IH DAILY 08/29/16 Folic Acid 1 mg PO DAILY 08/29/16 Metoprolol Succinate [Toprol XL -] 25 mg PO DAILY 08/29/16 Nitroglycerin Sublingual [Nitrostat -] 0.4 mg SL ASDIR PRN 08/29/16 Pantoprazole Sodium [Protonix] 40 mg PO DAILY 08/29/16 Ranolazine [Ranexa] 500 mg PO BID 08/29/16 Rosuvastatin Calcium [Crestor] 40 mg PO DAILY 08/29/16 Sennosides [Senna] 8.6 mg PO HS 10/27/16 Acetaminophen [8Hr Arthritis Pain Relief] 650 mg PO QID PRN 07/02/18 Ferrous Sulfate 325 mg PO DAILY 07/02/18 Furosemide [Lasix] 40 mg PO DAILY 07/02/18 Guaifenesin/Pseudoephedrne HCl [Mucinex D ER 600-60 mg Tablet] 1 each PO BID 07/02/18 Multivit-Min/Iron Fum/Folic AC [Iiyub-Ybywmfl-Rqhtgvan Tablet] 1 each PO DAILY 07/02/18 Apixaban [Eliquis -] 2.5 mg PO BID tablet 07/06/18 Albuterol Sulfate Inhaler - [Ventolin HFA Inhaler -] 2 puff IN Q6H PRN 06/25/19 Lactulose 20 gm PO BID 06/25/19 Montelukast Sodium [Singulair] 10 mg PO HS 06/25/19 Acetaminophen [Tylenol] 325 mg PO Q6H PRN #40 tab 07/01/19 Cephalexin [Keflex] 500 mg PO BID #13 capsule 07/01/19 Oxybutynin Chloride [Ditropan Xl] 10 mg PO DAILY #30 tab.er.24 07/01/19 This patient is new to me today: No Emergency Visit: Yes ED Registration Date: 06/24/19 Care time: The patient presented to the Emergency Department on the above date and was hospitalized for further evaluation of their emergent condition. Critical Care patient: No - Discharge Referral Referred to [facility] No
--- NOTE | 2019-07-01 14:50 | PN ---
Progress Note (short form) - Note Progress Note: Progress Note (short form) - Note Progress Note: vaginal packing removed, no bleeding noted with removal of single piece of packing
--- NOTE | 2019-07-01 16:00 | PATH ---
Surgical Pathology Report Patient Name: IVA NAVARRETE Med. Rec. #: [id number] /Age/Gender: 1930 (Age: 89) / F Account: [id number] Location: [facility] MED/SURG Taken: 06/29/2019 Received: 06/30/2019 Reported: 07/01/2019 Physicians: Sofia Evans M.D. Specimen(s) Received URETHRAL MASS Clinical History Gross hematuria, urethral mass Final Diagnosis URETHRAL MASS, EXCISION: CONSISTENT WITH URETHRAL CARUNCLE. Comment: Polypoid lesion lined by urothelial and squamous epithelium with ulceration, marked acute and chronic inflammation with urethritis cystica / glandularis. Submucosal highly vascularized fibroblastic connective tissue shows marked chronic inflammation and edematous change. Findings are consistent with urethral caruncle. Suggest clinical correlation. Electronically Signed Adelia Henley M.D. Gross Description Received in formalin labeled "urethral mass," is a 4.2 x 2.2 x 1.4 cm londno, polypoid soft tissue mass. The presumed surgical resection margin is inked blue and the specimen is serially sectioned. The specimen is entirely and sequentially submitted in 6 cassettes (bisected tip of polyp in cassette 6). /06/30/2019 saudi06/30/2019
--- NOTE | 2019-07-01 16:02 | PATH ---
Cytology Non-Gynecological Report Patient Name: IVA NAVARRETE Med. Rec. #: [id number] /Age/Gender: 1930 (Age: 89) / F Account: [id number] Location: [facility] MED/SURG Taken: 06/29/2019 Received: 06/30/2019 Reported: 07/01/2019 Physicians: Sofia Brambila F.N.P. Specimen(s) Received A: URINE VOIDED B: URINE VOIDED Clinical History Urethral mass Final Diagnosis A & B: URINE FOR CYTOLOGY: SATISFACTORY FOR EVALUATION. NEGATIVE FOR CARCINOMA. NUMEROUS NEUTROPHILS, RED BLOOD CELLS, SCATTERED BENIGN UROTHELIAL CELLS AND SQUAMOUS EPITHELIAL CELLS PRESENT. Comment: see also concurrent surgical report [id number]. Electronically Signed Adelia Henley M.D. Gross Description A. Approximately 40cc of clear yellow fluid received fresh. Two cytospin prepared. B. Approximately 40cc of clear yellow fluid received fresh. Two cytospin prepared.
--- NOTE | 2019-07-02 21:43 | PN ---
Progress Note (short form) - Note Progress Note: UROLOGY NOTE.POST-D/C PATHOLOGY IS URETHRAL CARUNCLE (BENIGN)
== END 2019-07-01 16:07 | DRG 672 ==
LOC: JER 15:25 → JERBED 18:57 → J7W 21:30
PROVIDERS: ADMIT Internal Medicine; ATTEND Internal Medicine
PROC: 30233N1 Transfusion of Nonautologous Red Blood Cells into Peripheral Vein, Percutaneous Approach (ICD-10-PCS; 2019-06-24)
PROC: 0TJB8ZZ Inspection of Bladder, Via Natural or Artificial Opening Endoscopic (ICD-10-PCS; 2019-06-29)
PROC: 0TBD8ZZ Excision of Urethra, Via Natural or Artificial Opening Endoscopic (ICD-10-PCS; principal; 2019-06-29 12:30)
PROC: 0TQD8ZZ Repair Urethra, Via Natural or Artificial Opening Endoscopic (ICD-10-PCS; 2019-06-29 12:30)
DX: N36.8 Other specified disorders of urethra (principal); D30.4 Benign neoplasm of urethra; N81.10 Cystocele, unspecified; I25.10 Atherosclerotic heart disease of native coronary artery without angina pectoris; I48.91 Unspecified atrial fibrillation; I50.9 Heart failure, unspecified; E78.5 Hyperlipidemia, unspecified; N32.89 Other specified disorders of bladder; R31.0 Gross hematuria; I34.0 Nonrheumatic mitral (valve) insufficiency; J44.9 Chronic obstructive pulmonary disease, unspecified; J45.909 Unspecified asthma, uncomplicated; I11.0 Hypertensive heart disease with heart failure; D64.9 Anemia, unspecified; K22.4 Dyskinesia of esophagus; K21.9 Gastro-esophageal reflux disease without esophagitis; D63.8 Anemia in other chronic diseases classified elsewhere; F32.9 Major depressive disorder, single episode, unspecified; E53.8 Deficiency of other specified B group vitamins; M54.5 Low back pain; M19.012 Primary osteoarthritis, left shoulder; M50.10 Cervical disc disorder with radiculopathy, unspecified cervical region; M06.9 Rheumatoid arthritis, unspecified; J30.9 Allergic rhinitis, unspecified; E03.9 Hypothyroidism, unspecified; M85.80 Other specified disorders of bone density and structure, unspecified site; N93.9 Abnormal uterine and vaginal bleeding, unspecified; Z95.1 Presence of aortocoronary bypass graft; Z85.3 Personal history of malignant neoplasm of breast; Z95.0 Presence of cardiac pacemaker; Z95.5 Presence of coronary angioplasty implant and graft
CPT/HCPCS: 36415; 36430; 36511; 71045-TC-FY; 74176-TC; 76856-TC; 80048; 80053; 82272; 82550; 83735; 84484; 85025; 85610; 85730; 86850; 86900; 86901; 86922; 87086; 87186; 88108; 88305-TC; 93005; 93010; 94010; 94760; 97116-GP; 97161-GP; 99285-25; P9038; P9058

== ENCOUNTER 2020-02-09 09:42 | Inpatient (IN) | payer OTHER ==
[2020-02-09 11:19] LABS: BASO % 0.5 % (0-2.0); EOS % 0.4 % (0-4.5); HEMATOCRIT 27.7 % (32.4-45.2); LYMPH % 14.4 % (8-40); MCH 33.5 pg (25.7-33.7); MCHC 32.3 g/dl (32.0-36.0); MEAN CELL VOLUME 103.5 fl (80-96); MEAN PLT VOLUME 7.4 fl (7.5-11.1); MONO % 7.1 % (3.8-10.2); NEUT % 77.6 % (42.8-82.8); PLATELET COUNT 178 K/MM3 (134-434); RBC 2.68 M/mm3 (3.60-5.2); RDW 15.4 % (11.6-15.6); WHITE BLOOD COUNT 5.5 K/mm3 (4.0-10.0)
[2020-02-09] MEDS ORDERED: SODIUM CHLORIDE 1,633 ML IV ONE (11:34)
[2020-02-09 11:47] LABS: CALCIUM 9.7 mg/dL (8.5-10.1)
[2020-02-09 11:48] LABS: ALBUMIN 3.6 g/dl (3.4-5.0)
[2020-02-09 11:51] LABS: CREATININE 1.4 mg/dL (0.55-1.3)
[2020-02-09 11:53] LABS: BILIRUBIN,TOTAL 0.8 mg/dL (0.2-1); TOT PROT 6.9 g/dl (6.4-8.2)
[2020-02-09 11:57] LABS: BLOOD UREA NITROGEN 35.8 mg/dL (7-18)
[2020-02-09] MEDS ORDERED: LIDOCAINE VISCOUS 2% ORAL/TOP 20 ML UNIT-DOSE CUP MM ONE (12:23)
[2020-02-09] MEDS ORDERED: ACETAMINOPHEN 1000 MG/100 ML VIAL (NON FORMULARY) IVPB ONE (12:23)
[2020-02-09] MEDS ORDERED: LIDOCAINE VISCOUS 2% ORAL/TOP 20 ML UNIT-DOSE CUP ONE (12:26)
[2020-02-09] MEDS ORDERED: ACETAMINOPHEN INJECTION 100 ML IVPB ONE (12:27)
[2020-02-09] MEDS ORDERED: DEXTROSE 5%-0.45% SALINE 1,000 ML IV SCH (18:30)
[2020-02-09] MEDS ORDERED: ENOXAPARIN NA (PORCINE) 40 MG/0.4 ML DISP.SYRIN SQ SCH ×2 (22:00)
[2020-02-10 08:06] LABS: BASO % 0.7 % (0-2.0); HEMOGLOBIN 9.4 GM/dL (10.7-15.3); LYMPH % 16.9 % (8-40); MCHC 32.3 g/dl (32.0-36.0); MEAN CELL VOLUME 105.3 fl (80-96); MEAN PLT VOLUME 7.2 fl (7.5-11.1); MONO % 7.4 % (3.8-10.2); PLATELET COUNT 189 K/MM3 (134-434); RBC 2.75 M/mm3 (3.60-5.2); RDW 15.5 % (11.6-15.6); WHITE BLOOD COUNT 4.1 K/mm3 (4.0-10.0)
[2020-02-10 08:30] LABS: CALCIUM 8.8 mg/dL (8.5-10.1)
[2020-02-10 08:31] LABS: ALBUMIN 3.2 g/dl (3.4-5.0); BLOOD UREA NITROGEN 28.1 mg/dL (7-18); MAGNESIUM 2.4 mg/dL (1.8-2.4)
[2020-02-10 08:34] LABS: CREATININE 1.2 mg/dL (0.55-1.3)
[2020-02-10 08:35] LABS: BILIRUBIN,TOTAL 0.4 mg/dL (0.2-1)
[2020-02-10 08:36] LABS: TOT PROT 6.4 g/dl (6.4-8.2)
[2020-02-10] MEDS ORDERED: ENOXAPARIN NA (PORCINE) 40 MG/0.4 ML DISP.SYRIN SQ SCH ×3 (10:00→22:00)
[2020-02-10 11:25] LABS: ANISOCYTOSIS 1+; MACROCYTOSIS 1+; PLATELET ESTIMATE NORMAL
[2020-02-10] MEDS ORDERED: NITROGLYCERIN SUBLINGUAL 1/150 0.4 MG TAB SL ONE (13:40)
[2020-02-10] MEDS ORDERED: NITROGLYCERIN SUBLINGUAL 1/200 0.3 MG BTL SL ONE (13:40)
[2020-02-10] MEDS ORDERED: NITROGLYCERIN SUBLINGUAL 1/150 0.4 MG TAB ONE (13:41)
[2020-02-10] MEDS ORDERED: DEXTROSE 5%-0.45% SALINE 1,000 ML IV SCH (14:48)
[2020-02-10] MEDS ORDERED: ASPIRIN 325 MG ENTERIC COATED TABLET (FP) PO ONE (18:15)
[2020-02-10] MEDS ORDERED: ALBUTEROL SO4 2.5/IPRATROPIUM 0.5 INH SOL 3 ML VIAL.NEB. NEB PRN (18:24)
[2020-02-10] MEDS ORDERED: NITROGLYCERIN SUBLINGUAL 1/150 0.4 MG TAB SL PRN (18:25)
[2020-02-10] MEDS ORDERED: MOMETASONE FUROATE 220 MCG/IH INHALER IH SCH (19:00)
[2020-02-10] MEDS: metoPROLOL SUCCINATE 25 MG TAB.SR.24H (FP) PO SCH (20:48)
[2020-02-10] MEDS: RANOLAZINE E.R. 500 MG TABLET (FP) PO SCH (21:14)
[2020-02-10] MEDS ORDERED: ENOXAPARIN NA (PORCINE) 60 MG/0.6 ML DISP.SYRIN SQ SCH (22:00)
[2020-02-11 00:16] LABS: EPI CELLS 6 /uL (0-25.1); HYALINE CASTS 1 /uL (0-3.1); PH,URINE 5.5 (5.0-8.0); URINE APPEARANCE TURBID; URINE BACTERIA >9,000 /uL (0-1359); URINE BILIRUBIN NEGATIVE (NEGATIVE); URINE COLOR YELLOW; URINE GLUCOSE (UA) NEGATIVE (NEGATIVE); URINE KETONE TRACE (NEGATIVE); URINE LEUK ESTERASE 3+ (NEGATIVE); URINE NITRITE POSITIVE (NEGATIVE); URINE PROTEIN 1+ (NEGATIVE); URINE RBC 68 /uL (0-23.9); URINE UROBILINOGEN 0.2 mg/dL (0.2-1.0); URINE WBC 1750 /uL (0-25.8)
[2020-02-11 07:32] LABS: BASO % 0.8 % (0-2.0); EOS % 5.5 % (0-4.5); HEMATOCRIT 28.9 % (32.4-45.2); HEMOGLOBIN 9.5 GM/dL (10.7-15.3); MCH 34.3 pg (25.7-33.7); MCHC 32.9 g/dl (32.0-36.0); MEAN CELL VOLUME 104.2 fl (80-96); MEAN PLT VOLUME 7.4 fl (7.5-11.1); MONO % 8.9 % (3.8-10.2); NEUT % 63.8 % (42.8-82.8); PLATELET COUNT 211 K/MM3 (134-434); RBC 2.77 M/mm3 (3.60-5.2); RDW 15.2 % (11.6-15.6); WHITE BLOOD COUNT 3.7 K/mm3 (4.0-10.0)
[2020-02-11 08:44] LABS: ALBUMIN 3.1 g/dl (3.4-5.0); BILIRUBIN,TOTAL 0.4 mg/dL (0.2-1); BLOOD UREA NITROGEN 21.3 mg/dL (7-18); CALCIUM 8.7 mg/dL (8.5-10.1); MAGNESIUM 2.6 mg/dL (1.8-2.4); PHOSPHOROUS 2.8 mg/dL (2.5-4.9); POTASSIUM 3.7 mmol/L (3.5-5.1); TOT PROT 6.3 g/dl (6.4-8.2)
[2020-02-11] MEDS ORDERED: PT OWN MED DRAWER 7, Y5N ONE (09:26)
[2020-02-11] MEDS ORDERED: ASPIRIN COATED 81 MG TABLET.EC PO SCH (10:00)
[2020-02-11] MEDS: metoPROLOL SUCCINATE 25 MG TAB.SR.24H (FP) PO SCH (10:02)
[2020-02-11] MEDS: RANOLAZINE E.R. 500 MG TABLET (FP) PO SCH ×2 (10:02→22:09)
[2020-02-11] MEDS ORDERED: MIDAZOLAM HCL 2 MG/2 ML SINGLE DOSE VIAL ONE (14:43)
[2020-02-11] MEDS ORDERED: DEXTROSE 5%-0.45% SALINE 1,000 ML IV SCH ×2 (14:45→15:07)
[2020-02-11] MEDS ORDERED: NITROGLYCERIN SUBLINGUAL 1/150 0.4 MG TAB SL PRN (15:07)
[2020-02-11] MEDS ORDERED: ONDANSETRON 4 MG/2 ML VIAL IVPUSH PRN (16:14)
[2020-02-11] MEDS ORDERED: MIDAZOLAM HCL 2 MG/2 ML SINGLE DOSE VIAL IVPUSH ONE (16:15)
[2020-02-11] MEDS: PROPOFOL 1,000,000 MCG/100 ML VIAL IVPB SCH (17:15)
[2020-02-11] MEDS: MUPIROCIN 2% TOPICAL OINTMENT FOR DECOLONIZATION NS SCH (22:19)
[2020-02-11] MEDS: CHLORHEXIDINE GLUCONATE 4% CLEANSER FOR DECOLONIZATION TP SCH (22:19)
[2020-02-11] MEDS: MOMETASONE FUROATE 220 MCG/IH INHALER IH SCH (22:30)
[2020-02-12] MEDS: PROPOFOL 1,000,000 MCG/100 ML VIAL IVPB SCH ×2 (06:00→21:23)
[2020-02-12 07:07] LABS: BASO % 0.1 % (0-2.0); HEMATOCRIT 30.6 % (32.4-45.2); HEMOGLOBIN 10.1 GM/dL (10.7-15.3); LYMPH % 14.4 % (8-40); MCH 34.1 pg (25.7-33.7); MCHC 33.1 g/dl (32.0-36.0); MEAN CELL VOLUME 103.1 fl (80-96); MONO % 2.8 % (3.8-10.2); NEUT % 82.7 % (42.8-82.8); PLATELET COUNT 199 K/MM3 (134-434); RBC 2.97 M/mm3 (3.60-5.2); RDW 14.6 % (11.6-15.6); WHITE BLOOD COUNT 4.1 K/mm3 (4.0-10.0)
[2020-02-12 07:20] LABS: INR 1.06 (0.83-1.09)
[2020-02-12 07:31] LABS: POTASSIUM 3.4 mmol/L (3.5-5.1)
[2020-02-12 07:43] LABS: ALBUMIN 2.8 g/dl (3.4-5.0); BLOOD UREA NITROGEN 19.9 mg/dL (7-18)
[2020-02-12 07:46] LABS: CREATININE 0.9 mg/dL (0.55-1.3)
[2020-02-12 07:47] LABS: BILIRUBIN,TOTAL 0.5 mg/dL (0.2-1)
[2020-02-12 07:48] LABS: TOT PROT 6.2 g/dl (6.4-8.2)
[2020-02-12] MEDS ORDERED: POTASSIUM CHLORIDE TABS 20 MEQ TABLET.ER (FP) PO ONE (07:57)
[2020-02-12] MEDS: RANOLAZINE E.R. 500 MG TABLET (FP) PO SCH ×2 (09:30→21:56)
[2020-02-12] MEDS: metoPROLOL SUCCINATE 25 MG TAB.SR.24H (FP) PO SCH (09:30)
[2020-02-12] MEDS: MUPIROCIN 2% TOPICAL OINTMENT FOR DECOLONIZATION NS SCH ×2 (10:11→22:04)
[2020-02-12] MEDS ORDERED: KCL 10 MEQ IVPB 10 MEQ/100 ML INFUS.BAG IVPB SCH (11:30)
[2020-02-12] MEDS ORDERED: FUROSEMIDE 40 MG/4 ML INJECTABLE VIAL IVPUSH ONE (12:04)
[2020-02-12] MEDS: APIXABAN 2.5 MG TABLET PO SCH (21:56)
[2020-02-12] MEDS: CHLORHEXIDINE GLUCONATE 4% CLEANSER FOR DECOLONIZATION TP SCH (22:04)
[2020-02-12] MEDS: MOMETASONE FUROATE 220 MCG/IH INHALER IH SCH (23:00)
[2020-02-13] MEDS ORDERED: LACTATED RINGERS SOLUTION 1000 ML INFUS.BAG IV ONE (04:25)
[2020-02-13] MEDS: metoPROLOL SUCCINATE 25 MG TAB.SR.24H (FP) PO SCH ×2 (10:10→10:21)
[2020-02-13] MEDS: APIXABAN 2.5 MG TABLET PO SCH ×2 (10:10→23:56)
[2020-02-13] MEDS: RANOLAZINE E.R. 500 MG TABLET (FP) PO SCH ×2 (10:11→21:58)
[2020-02-13] MEDS: MUPIROCIN 2% TOPICAL OINTMENT FOR DECOLONIZATION NS SCH (10:11)
[2020-02-13] MEDS ORDERED: APIXABAN 2.5 MG TABLET PO SCH ×2 (11:30→22:00)
[2020-02-13 15:43] VITALS: BMI 19.5
[2020-02-13] MEDS ORDERED: ONDANSETRON 4 MG/2 ML VIAL IVPUSH PRN (21:38)
[2020-02-13] MEDS ORDERED: NITROGLYCERIN SUBLINGUAL 1/150 0.4 MG TAB SL PRN (21:38)
[2020-02-13] MEDS: MOMETASONE FUROATE 220 MCG/IH INHALER IH SCH (22:16)
[2020-02-14 08:38] LABS: BASO % 0.3 % (0-2.0); EOS % 2.2 % (0-4.5); HEMATOCRIT 26.1 % (32.4-45.2); HEMOGLOBIN 8.7 GM/dL (10.7-15.3); LYMPH % 20.4 % (8-40); MCH 34.7 pg (25.7-33.7); MCHC 33.5 g/dl (32.0-36.0); MEAN CELL VOLUME 103.6 fl (80-96); MEAN PLT VOLUME 7.2 fl (7.5-11.1); MONO % 8.3 % (3.8-10.2); NEUT % 68.8 % (42.8-82.8); PLATELET COUNT 205 K/MM3 (134-434); RBC 2.52 M/mm3 (3.60-5.2); RDW 14.8 % (11.6-15.6); WHITE BLOOD COUNT 5.2 K/mm3 (4.0-10.0)
[2020-02-14 08:44] LABS: POTASSIUM 3.6 mmol/L (3.5-5.1)
[2020-02-14 08:56] LABS: ALBUMIN 2.5 g/dl (3.4-5.0); BLOOD UREA NITROGEN 19.4 mg/dL (7-18); CALCIUM 7.8 mg/dL (8.5-10.1); MAGNESIUM 2.2 mg/dL (1.8-2.4)
[2020-02-14 08:59] LABS: CREATININE 0.9 mg/dL (0.55-1.3); PHOSPHOROUS 2.1 mg/dL (2.5-4.9)
[2020-02-14 09:01] LABS: BILIRUBIN,TOTAL 0.7 mg/dL (0.2-1); TOT PROT 5.6 g/dl (6.4-8.2)
[2020-02-14] MEDS: RANOLAZINE E.R. 500 MG TABLET (FP) PO SCH ×2 (09:24→22:06)
[2020-02-14] MEDS: metoPROLOL SUCCINATE 25 MG TAB.SR.24H (FP) PO SCH (09:24)
[2020-02-14] MEDS: APIXABAN 2.5 MG TABLET PO SCH (09:24)
[2020-02-14] MEDS ORDERED: SODIUM PHOSPHATE - 15 MM in SODIUM CHLORIDE 250 ML IVPB ONE (18:00)
[2020-02-14] MEDS: ENOXAPARIN NA (PORCINE) 60 MG/0.6 ML DISP.SYRIN SQ SCH (22:05)
[2020-02-14] MEDS: MOMETASONE FUROATE 220 MCG/IH INHALER IH SCH (22:11)
[2020-02-15 08:32] LABS: BASO % 0.4 % (0-2.0); EOS % 0.8 % (0-4.5); HEMATOCRIT 25.6 % (32.4-45.2); HEMOGLOBIN 8.4 GM/dL (10.7-15.3); LYMPH % 17.6 % (8-40); MCH 33.7 pg (25.7-33.7); MCHC 32.9 g/dl (32.0-36.0); MEAN CELL VOLUME 102.5 fl (80-96); MEAN PLT VOLUME 7.6 fl (7.5-11.1); MONO % 8.2 % (3.8-10.2); PLATELET COUNT 211 K/MM3 (134-434); RBC 2.49 M/mm3 (3.60-5.2); RDW 14.9 % (11.6-15.6); WHITE BLOOD COUNT 4.7 K/mm3 (4.0-10.0)
[2020-02-15 09:08] LABS: POTASSIUM 3.6 mmol/L (3.5-5.1)
[2020-02-15 09:10] LABS: CALCIUM 7.9 mg/dL (8.5-10.1)
[2020-02-15 09:11] LABS: ALBUMIN 2.6 g/dl (3.4-5.0); BLOOD UREA NITROGEN 16.1 mg/dL (7-18); MAGNESIUM 2.1 mg/dL (1.8-2.4)
[2020-02-15] MEDS: ENOXAPARIN NA (PORCINE) 60 MG/0.6 ML DISP.SYRIN SQ SCH (09:12)
[2020-02-15] MEDS: metoPROLOL SUCCINATE 25 MG TAB.SR.24H (FP) PO SCH (09:13)
[2020-02-15] MEDS: RANOLAZINE E.R. 500 MG TABLET (FP) PO SCH (09:13)
[2020-02-15 09:14] LABS: PHOSPHOROUS 2.9 mg/dL (2.5-4.9)
[2020-02-15 09:15] LABS: BILIRUBIN,TOTAL 0.3 mg/dL (0.2-1); TOT PROT 5.5 g/dl (6.4-8.2)
[2020-02-15] MEDS ORDERED: CYANOCOBALAMIN (VITAMIN B-12) 1000 MCG/1 ML VIAL IM ONE (11:13)
[2020-02-15] MEDS ORDERED: FOLIC ACID 1 MG TABLET (FP) PO SCH (11:15)
[2020-02-15] MEDS ORDERED: ACETAMINOPHEN 325 MG TABLET (FP) PO ONE (12:10)
[2020-02-15] MEDS ORDERED: PT OWN MED DRAWER 7, Y5N ONE (14:14)
[2020-02-15 14:18] VITALS: BP 141/71; PULSE 67; TEMP 98.7
[2020-02-15] MEDS ORDERED: APIXABAN 2.5 MG TABLET PO SCH (22:00)
== END 2020-02-15 20:00 | DRG 392 ==
LOC: JER 09:42 → JERBED 17:53 → J6S 19:24 → J4W 02-10 14:30 → JICU 02-11 15:52 → J6S 02-13 20:44
PROVIDERS: ATTEND Student in an Organized Health Care Education/Training Program
PROC: 0DC18ZZ Extirpation of Matter from Upper Esophagus, Via Natural or Artificial Opening Endoscopic (ICD-10-PCS; principal; 2020-02-11 11:17)
DX: K22.4 Dyskinesia of esophagus (principal); E87.0 Hyperosmolality and hypernatremia; I24.8 Other forms of acute ischemic heart disease; I50.30 Unspecified diastolic (congestive) heart failure; J44.1 Chronic obstructive pulmonary disease with (acute) exacerbation; K22.8 Other specified diseases of esophagus; I48.91 Unspecified atrial fibrillation; I25.10 Atherosclerotic heart disease of native coronary artery without angina pectoris; T18.128A Food in esophagus causing other injury, initial encounter; X58.XXXA Exposure to other specified factors, initial encounter; E78.5 Hyperlipidemia, unspecified; K21.9 Gastro-esophageal reflux disease without esophagitis; E03.9 Hypothyroidism, unspecified; D64.9 Anemia, unspecified; R13.10 Dysphagia, unspecified; K22.5 Diverticulum of esophagus, acquired; M06.9 Rheumatoid arthritis, unspecified; M19.012 Primary osteoarthritis, left shoulder; R07.89 Other chest pain; F32.9 Major depressive disorder, single episode, unspecified; M54.5 Low back pain; M54.12 Radiculopathy, cervical region; K29.60 Other gastritis without bleeding; M47.9 Spondylosis, unspecified; D75.89 Other specified diseases of blood and blood-forming organs; I11.0 Hypertensive heart disease with heart failure; E87.8 Other disorders of electrolyte and fluid balance, not elsewhere classified; I34.0 Nonrheumatic mitral (valve) insufficiency; Z95.1 Presence of aortocoronary bypass graft; Z95.0 Presence of cardiac pacemaker; Z96.653 Presence of artificial knee joint, bilateral; Z95.5 Presence of coronary angioplasty implant and graft; Z85.3 Personal history of malignant neoplasm of breast; Z85.43 Personal history of malignant neoplasm of ovary; Z88.1 Allergy status to other antibiotic agents; I25.2 Old myocardial infarction
CPT/HCPCS: 36415; 70450-TC; 70490-TC; 71045-TC-FY; 73110-TC-LT-FY; 73130-TC-LT-FY; 74230-TC-FY; 80053; 80061; 81003; 82607; 82746; 82962; 83605; 83721; 83735; 84100; 84439; 84443; 84484; 85025; 85610; 86140; 86850; 86900; 86901; 87040; 87070; 87086; 87186; 87804; 87880; 92611-GN; 93005; 93010; 93306-TC; 93971-TC; 94002; 94760; 97162-GP; 99285-25; C9803; J0131; U0003

== ENCOUNTER 2020-09-07 10:59 | Emergency (ER) | payer OTHER ==
[2020-09-07 11:11] VITALS: PULSE 75; BMI 18.3
[2020-09-07 15:10] LABS: BASO % 0.5 % (0-2.0); EOS % 1.1 % (0-4.5); HEMATOCRIT 29.6 % (32.4-45.2); HEMOGLOBIN 10.1 GM/dL (10.7-15.3); LYMPH % 27.2 % (8-40); MCH 35.2 pg (25.7-33.7); MCHC 34.3 g/dl (32.0-36.0); MEAN CELL VOLUME 102.6 fl (80-96); MEAN PLT VOLUME 7.1 fl (7.5-11.1); MONO % 7.8 % (3.8-10.2); NEUT % 63.4 % (42.8-82.8); PLATELET COUNT 202 K/MM3 (134-434); RBC 2.88 M/mm3 (3.60-5.2); RDW 14.8 % (11.6-15.6); WHITE BLOOD COUNT 4.8 K/mm3 (4.0-10.0)
[2020-09-07 15:16] LABS: INR 1.24 (0.83-1.09); PROTHROMBIN TIME (PATIENT) 14.9 SEC (9.7-13.0)
[2020-09-07 15:19] LABS: ACTIVATED PTT 32.3 SECONDS (25.2-36.5)
[2020-09-07 15:34] LABS: ALBUMIN 3.8 g/dl (3.4-5.0); BLOOD UREA NITROGEN 35.2 mg/dL (7-18); CALCIUM 9.2 mg/dL (8.5-10.1)
[2020-09-07 15:36] LABS: CREATININE 1.6 mg/dL (0.55-1.3)
[2020-09-07 15:38] LABS: BILIRUBIN,TOTAL 0.5 mg/dL (0.2-1); TOT PROT 7.3 g/dl (6.4-8.2)
[2020-09-07 17:46] VITALS: BP 110/72; TEMP 98.2
== END 2020-09-07 16:00 | disposition short-term general hospital (02) ==
LOC: JER 10:59
DX: T18.128A Food in esophagus causing other injury, initial encounter (principal); K22.5 Diverticulum of esophagus, acquired
CPT/HCPCS: 36415; 70360-TC-FY; 71045-TC-FY; 80053; 84484; 85025; 85610; 85730; 93005; 93010; 99285-25; C9803; U0003; U0005